=== PATIENT | male | born 1960 | race Caucasian/White ===

== ENCOUNTER 2021-12-15 10:00 | Inpatient (IN) ==
[2021-12-15] MEDS ORDERED: DEXAMETHASONE 4 MG TABLET PO ONE (10:25)
[2021-12-15] MEDS ORDERED: 0.9 % SODIUM CHLORIDE 1,000 ML IV ONE (10:25)
[2021-12-15] MEDS ORDERED: ACETAMINOPHEN 500 MG TABLET PO ONE (10:25)
--- NOTE | 2021-12-15 10:33 | Emergency Department Note ---
HPI General Chief complaint: Shortness of Breath/Dyspnea Stated complaint: Weak Time Seen by Provider: 12/15/21 10:24 Source: EMS Mode of arrival: EMS Limitations: no limitations History of Present Illness HPI Narrative: Patient is a 61-year-old gentleman arrives the emergency department complaining of shortness of breath. The patient says he started feeling ill about 3 weeks ago after being exposed to his son who tested positive for COVID-19. His also became ill with similar symptoms including a cough headache and shortness of breath. His symptoms gradually resolved but has not progressively wor sened ever since. He continues to have fever and chills. He has been having persistent diarrhea and mild associated abdominal discomfort. Nothing seems to make his symptoms any better or worse. This morning he started feeling more short of breath so he decided to seek medical attention. He has not taken any medications this morning for his symptoms but has been intermittently taking Tylenol to treat his fevers. He received a full vaccination series against COVID-19 several months ago. Related Data Home Medications Medication Instructions Recorded Confirmed carboxymethylcellulose sodium 0.5 1 drp OPHTHALMIC TID PRN 05/19/19 12/15/21 % eye drops cholecalciferol (vitamin D3) 125 5,000 unit PO QDAY 05/19/19 12/15/21 mcg (5,000 unit) capsule furosemide 40 mg tablet 80 mg PO QAM tab 11/10/19 12/15/21 magnesium oxide 420 mg tablet 420 mg PO QDAY tab 11/10/19 12/15/21 acetaminophen 650 mg 650 mg PO Q12H PRN 12/17/19 12/15/21 tablet,extended release insulin aspart U-100 100 unit/mL 30 unit SUB-Q TID ml 12/17/19 12/15/21 subcutaneous solution insulin glargine 100 unit/mL 50 unit SUB-Q BID ml 12/17/19 12/15/21 subcutaneous solution cyanocobalamin (vitamin B-12) 1,000 mcg PO QDAY 05/16/21 12/15/21 1,000 mcg capsule metoprolol tartrate 50 mg tablet 50 mg PO BID tab 05/16/21 12/15/21 gabapentin 300 mg capsule 600 mg PO TID cap 11/15/21 12/15/21 metformin 500 mg tablet 1,000 mg PO BID tab 11/15/21 12/15/21 semaglutide (weight loss) 1.7 1.7 mg SUBCUT QWEEK 11/15/21 12/15/21 mg/0.75 mL subcutaneous pen injector diclofenac sodium 50 mg 50 mg PO TID PRN 12/15/21 12/15/21 tablet,delayed release lisinopril 20 1 tab PO QAM 12/15/21 12/15/21 mg-hydrochlorothiazide 12.5 mg tablet metformin 500 mg tablet 500 mg PO QDAY 12/15/21 12/15/21 simvastatin 40 mg tablet 40 mg PO QHS 12/15/21 12/15/21 Allergies Allergy/AdvReac Type Severity Reaction Status Date / Time iodine Allergy Unknown Rash Verified 12/15/21 10:03 prednisone Allergy Unknown Schizophren Verified 11/15/21 09:51 ia contrast dye Allergy Intermediate Rash Uncoded 11/15/21 09:51 Review of Systems ROS ROS Narrative: Narrative: All systems ED: reviewed and negative except as stated. ENT ED: Reports epistaxis, congestion and rhinorrhea Neurological: Reports headache PFSH Narrative Patient History Narrative: Narrative: Medical/Surgical/Family History All Active Problems (Updated 12/16/21 @ 07:30 by Tj Rosenthal DO) Congestive heart failure (Acute) Acute hypoxemic respiratory failure (Acute) Acute hypokalemia (Acute) Hypokalemia (Acute) CHF exacerbation (Acute) Acute respiratory failure with hypoxia (Acute) Localized edema due to fluid overload (Chronic) Anemia due to stage 3a chronic kidney disease (Chronic) Chronic kidney disease (CKD) stage G3a/A1, moderately decreased glomerular filtration rate (GFR) between 45-59 mL/min/1.73 square meter and albuminuria creatinine ratio less than 30 mg/g (Chronic) Blister (Acute) History of diabetic ulcer of foot (Acute) Hypertension in stage 3 chronic kidney disease due to type 2 diabetes mellitus (Chronic) Hypovitaminosis D (Chronic) Low vitamin B12 level (Chronic) Chronic diarrhea (Chronic) Ex-cigarette smoker (Chronic) Ex-cigar smoker (Chronic) Ex-pipe smoker (Chronic) Ex-user of chewing tobacco (Chronic) Hypertensive emergency (Chronic) CHF (congestive heart failure) (Chronic) Diaphoresis (Chronic) Snoring (Chronic) Lumbar radiculopathy (Chronic) Morbid obesity (Chronic) Lumbar sprain (Chronic) Chronic venous insufficiency (Chronic) Diabetic neuropathy (Chronic) Onychomycosis (Chronic) Anemia (Chronic) Pruritic rash (Chronic) Tinea pedis (Chronic) Nicotine dependence with current use (Chronic) Generalized edema (Chronic) Venous ulcer of leg (Chronic) Diabetes mellitus treated with insulin and oral medication (Chronic) DMII (diabetes mellitus, type 2) (Chronic) Hip pain (Chronic) Low back pain (Chronic) Age related cataract (Chronic) Dry eyes (Chronic) Diabetic retinopathy (Chronic) Tinea corporis (Chronic) 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) Non-proliferative diabetic retinopathy (Chronic) Vitamin D deficiency (Chronic) Hypomagnesemia (Chronic) Hyperlipidemia (Chronic) Hypertension (Chronic) Diabetic foot ulcer (Chronic) Knee pain (Chronic) Lumbosacral radiculopathy (Chronic) Degeneration of lumbar intervertebral disc (Chronic) Osteoarthritis of hip (Chronic) Acute sinusitis (Chronic) COPD (chronic obstructive pulmonary disease) (Chronic) Dyspnea on exertion (Chronic) Respiratory infection (Chronic) Medical History Acute sinusitis Age related cataract Anemia Blister CHF (congestive heart failure) Chronic diarrhea Chronic venous insufficiency COPD (chronic obstructive pulmonary disease) Degeneration of lumbar intervertebral disc Diabetes mellitus treated with insulin and oral medication Diabetic foot ulcer Diabetic neuropathy Diabetic retinopathy Diaphoresis DMII (diabetes mellitus, type 2) Dry eyes Dyspnea on exertion Ex-cigar smoker Ex-cigarette smoker Ex-pipe smoker Ex-user of chewing tobacco Generalized edema Hip pain History of diabetic ulcer of foot History of diabetic ulcer of foot Hyperlipidemia Hypertension Hypertensive emergency Hypomagnesemia Hypovitaminosis D Knee pain Low back pain Low vitamin B12 level Lumbar radiculopathy Lumbar sprain Lumbosacral radiculopathy Morbid obesity Nicotine dependence with current use Non-proliferative diabetic retinopathy Onychomycosis Open angle with borderline intraocular pressure Osteoarthritis of hip Pruritic rash Respiratory infection Snoring Tinea corporis Tinea pedis Venous ulcer of leg Vitamin D deficiency Surgical History No pertinent past surgical history Family History Mother CHF (congestive heart failure) Father , Age 70 History of cancer Sister Healthy female Sister Healthy female Other No pertinent family history Social History Smoking Status: Former smoker Alcohol Intake Frequency: does not drink Substance Use: does not use Exam Narrative Narrative: I reviewed the vital signs. Gen -patient is awake and alert and in no acute distress. The patient is well groomed. HEENT -head is atraumatic. There is no conjunctival pallor or scleral icterus. Mucous membranes are dry. CV -S1-S2 regular rate and rhythm. Peripheral pulses are palpable. There is no JVD. Resp -breathing is somewhat labored while on supplemental oxygen via nasal cannula. The patient can speak in short sentences but has visibly increased work of breathing after prolonged conversation. Lungs have moderate rhonchi bilaterally. There is no cyanosis. GI - Abdomen is soft and nontender to palpation. There is no guarding or rebound tenderness. Derm -skin is warm and dry. There is no visible rash. MSK -present extremities are atraumatic. Psych -patient has appropriate affect. The patient does not appear internally stimulated. Neuro -patient answers questions appropriately with fluent speech. Patient moves all present extremities equally. General Limitations: no limitations Course Vital Signs Vital signs: Vital Signs Temperature 98.7 F 12/15/21 10:01 Pulse Rate 93 H 12/15/21 10:01 Respiratory Rate 22 12/15/21 10:01 Blood Pressure 155/57 12/15/21 10:01 Pulse Oximetry (%) 88 L 12/15/21 10:01 Temperature 97.0 F 12/16/21 04:02 Pulse Rate 74 12/16/21 06:27 Respiratory Rate 30 H 12/16/21 06:27 Blood Pressure 108/53 12/16/21 06:01 Pulse Oximetry (%) 93 12/16/21 06:27 [facility] Narrative Medical decision making narrative: Patient with history of COVID exposure presents with shortness of breath. Initial suspicion was for COVID-19 pneumonia so he was given dexamethasone and IV fluids. However, after the patient volunteered further historical information, it became apparent that he had been out of his diuretics for several days and had recently reinstated diuretic use. During that time he had developed significant weight gain and peripheral edema to the point that his had difficulty getting his shoes on this morning. Chest x-ray reveals diffuse bilateral infiltrates suggestive of COVID-19 with likely overlying pulmonary edema. Labs remarkable for significantly elevated BNP as well as hypokalemia. The patient was given potassium and magnesium to replete his electrolytes. He was then given furosemide and nitroglycerin to treat suspected decompensated heart failure. He remained clinically stable throughout his emergency department stay but was unable to be weaned off of high flow nasal cannula. Given this I recommended he be admitted and he was agreeable. I discussed the patient's history examination and diagnostic findings with Dr. Mcclure, who agrees with the plan of care and accepts admission. Critical care time I provided 34 minutes of critical care time. This was in addition to any separately billable procedures. The patient was given supplemental oxygen to treat his hypoxemic respiratory failure. He was given IV diuretics and topical nitrates to treat decompensated heart failure. He was given magnesium and potassium to replete his electrolyte deficiencies and potentiate the action of the diuretics. The patient was closely monitored for response to treatment and stability of vital signs throughout their emergency department stay. Lab Data Lab results reviewed: Yes I reviewed the patient's lab results. Result diagrams: 12/16/21 05:36 12/16/21 05:35 Labs: Lab Results 12/15/21 12/15/21 12/15/21 Range/Units 10:39 10:39 10:39 WBC 7.3 (4.5-11.0) K/mcL RBC 3.46 L (4.63-6.08) M/mcL Hgb 10.7 L (13.7-17.5) g/dL Hct 32.3 L (40.1-51.0) % POC Hct 35 L (41-55) % MCV 93.4 (80.0-100.0) fL MCH 30.9 (26.0-34.0) pg MCHC 33.1 (31.0-36.0) g/dL RDW 15.0 H (11.5-14.5) % Plt Count 203 (140-440) K/mcL MPV 9.4 (7.4-10.4) fL Neut % (Auto) 77.0 (38.0-78.0) % Lymph % (Auto) 16.7 (15.5-49.0) % [place] % (Auto) 6.3 (1.0-12.0) % Eos % (Auto) 0 (0.0-7.0) % Baso % (Auto) 0 (0.0-2.0) % Lymph # (Auto) 1.22 L (1.50-4.80) K/mcL [place] # (Auto) 0.46 (0.10-0.90) K/mcL Eos # (Auto) 0 (0.00-0.70) K/mcL Baso # (Auto) 0 (0.00-0.30) K/mcL Absolute Neutrophils 5.63 (1.80-8.00) K/mcL POC Sodium 136 (133-145) mEq/L POC Potassium 2.9 L* (3.3-5.1) mEql/L POC Chloride 92 L (96-108) mEq/L POC Total CO2 28 (22-30) mmol/L POC BUN 23 H (6-20) mg/dL POC Creatinine 1.4 H (0.6-1.2) mg/dL POC Glucose 224 H (70-105) mg/dL POC WB Ioniz Calcium 0.97 L (1.16-1.32) mmEq/L Magnesium 1.8 (1.6-2.5) mg/dL Troponin T (<0.03) ng/mL NT-Pro-B Natriuret Pep 1420.0 H (<125.0) pg/mL 12/15/21 12/15/21 Range/Units 10:39 14:13 WBC (4.5-11.0) K/mcL RBC (4.63-6.08) M/mcL Hgb (13.7-17.5) g/dL Hct (40.1-51.0) % POC Hct (41-55) % MCV (80.0-100.0) fL MCH (26.0-34.0) pg MCHC (31.0-36.0) g/dL RDW (11.5-14.5) % Plt Count (140-440) K/mcL MPV (7.4-10.4) fL Neut % (Auto) (38.0-78.0) % Lymph % (Auto) (15.5-49.0) % [place] % (Auto) (1.0-12.0) % Eos % (Auto) (0.0-7.0) % Baso % (Auto) (0.0-2.0) % Lymph # (Auto) (1.50-4.80) K/mcL [place] # (Auto) (0.10-0.90) K/mcL Eos # (Auto) (0.00-0.70) K/mcL Baso # (Auto) (0.00-0.30) K/mcL Absolute Neutrophils (1.80-8.00) K/mcL POC Sodium (133-145) mEq/L POC Potassium (3.3-5.1) mEql/L POC Chloride (96-108) mEq/L POC Total CO2 (22-30) mmol/L POC BUN (6-20) mg/dL POC Creatinine (0.6-1.2) mg/dL POC Glucose (70-105) mg/dL POC WB Ioniz Calcium (1.16-1.32) mmEq/L Magnesium (1.6-2.5) mg/dL Troponin T 0.20 H* 0.19 H* (<0.03) ng/mL NT-Pro-B Natriuret Pep (<125.0) pg/mL ED POC Tests ED POC Tests: YUE - SARS Antigen Negative EKG Data EKG #1: EKG attestation: Yes I reviewed and interpreted this EKG. EKG results narrative: EKG performed at 10:58 AM: Sinus rhythm, rate 91. Normal P wave QRS and T wave morphology. There is subtle ST depression in V6 and V3. Normal AR and QRS duration. No old EKG immediately available for comparison. EKG was interpreted by me. Discharge Plan Patient/Caregiver Discharge Instructions Pt seen by SERVICE CASHIER/PA only: No Clinical Impression: Congestive heart failure, Acute hypoxemic respiratory failure, Acute hypokalemia Patient Disposition: Xfer As Inpt ([facility]) Condition: Critical Discharge Date/Time: 12/15/21 16:35
[2021-12-15] MEDS ORDERED: OXYMETAZOLINE 1 NASAL SPRAY BOTTLE NAS PRN (10:45)
[2021-12-15 10:56] LABS: POC Blood Urea Nitrogen 23 mg/dL (6-20); POC CO2 28 mmol/L (22-30); POC Calcium, Ionized 0.97 mmEq/L (1.16-1.32); POC Chloride 92 mEq/L (96-108); POC Creatinine 1.4 mg/dL (0.6-1.2); POC Glucose, Random 224 mg/dL (70-105); POC Hematocrit 35 % (41-55); POC Potassium 2.9 mEql/L (3.3-5.1); POC Sodium 136 mEq/L (133-145)
--- NOTE | 2021-12-15 11:03 | XRay Report ---
HISTORY: Hypoxia, dyspnea, weakness FINDINGS: Severe alveolar infiltrates are present throughout both lungs. Lung volumes are relatively small. The heart appears enlarged but is magnified by portable technique and poor inspiration. No pleural effusion is detected. The infiltrates are new and the heart has enlarged since prior x-ray done on 01/08/15. IMPRESSION: Severe infiltrates throughout both lungs which could be due to pulmonary edema or severe widespread bilateral pneumonia Interpreted and Authenticated by: Blayne Bates 12/15/21
[2021-12-15] MEDS ORDERED: MAGNESIUM OXIDE 400 MG TABLET PO ONE (11:06)
[2021-12-15] MEDS ORDERED: POTASSIUM CHLORIDE 20 MEQ PACKET PO ONE (11:06)
[2021-12-15 11:21] LABS: Basophils # (Auto) 0 K/mcL (0.00-0.30); Basophils % (Auto) 0 % (0.0-2.0); Eosinophils # (Auto) 0 K/mcL (0.00-0.70); Eosinophils % (Auto) 0 % (0.0-7.0); Hematocrit 32.3 % (40.1-51.0); Hemoglobin 10.7 g/dL (13.7-17.5); Lymphocytes # (Auto) 1.22 K/mcL (1.50-4.80); Lymphocytes % (Auto) 16.7 % (15.5-49.0); Mean Cell Volume 93.4 fL (80.0-100.0); Mean Corpuscular HGB Conc 33.1 g/dL (31.0-36.0); Mean Platelet Volume 9.4 fL (7.4-10.4); Monocytes # (Auto) 0.46 K/mcL (0.10-0.90); Monocytes % (Auto) 6.3 % (1.0-12.0); Platelet Count 203 K/mcL (140-440); RBC 3.46 M/mcL (4.63-6.08); WBC 7.3 K/mcL (4.5-11.0)
[2021-12-15] MEDS ORDERED: NITROGLYCERIN 5 MG (0.2 MG/HR) PATCH TOPICAL ONE (14:12)
[2021-12-15] MEDS ORDERED: FUROSEMIDE 40 MG/4 ML VIAL IV ONE (14:12)
[2021-12-15] MEDS ORDERED: POTASSIUM CHLORIDE 40 MEQ in DEXTROSE 5% IN WATER 500 ML IV ONE (14:12)
--- NOTE | 2021-12-15 15:57 | Internal Med History&Physical ---
HPI History of Present Illness Patient information: Note initiated : 12/15/21 at 3:49 pm Service Date, if different from initiated Date: [] Patient: Jose Young 61 y/o M admitted on for Weak. Chief Complaint: [shortness of breath, cough, fever, chills] Chief complaint: shortness of breath, cough, fever, chills History of present illness: Mr. Young is a 61 year old M history of congestive heart failure, chronic kidn ey disease stage III, morbid obesity, essential hypertension, mixed dyslipidemia, type 2 diabetes mellitus, presenting with 3 weeks history of shortness of breath, cough, fever, chills, and bilateral leg swellings. He ran out of his diuretics Lasix 3 weeks ago. Since then, he had gradually worsening shortness of breath, cough, fever, chills, and bilateral leg swellings. He is also complained of dyspnea on exertions with 20 feet. He is also committing of orthopnea to the point that he has to sleep on the chair. He denies any wheezing. He denies any unintentional weight gain. Patient is vaccinated against COVID-pneumonia. Of note, his son was recently being diagnosed with COVID-pneumonia. Labs significant for lack of leukocytosis with WBC 7.3. POC potassium level 2.9. Serum creatinine level 1.4 which is at around his baseline. Serum glucose level 224. Serum troponin level 0.20 followed by 0.19. Serum BNP 1420. [place]ice negative. [place] pending. Chest x-ray showing severe infiltrates throughout both lungs which could be due to pulmonary edema or severe widespread bilateral pneumonia such as COVID-pneumonia. Constitutional Constitutional: Absent chills, excessive sweating, fatigue, fever(s) or weakness EENT Eyes: Absent blurry vision, change in vision, loss of vision or other visual disturbances Ears: Absent decreased hearing or tinnitus Nose, mouth and throat: Absent abnormal hearing, dry mouth, headache(s), nasal congestion or sore throat Cardiovascular Cardiovascular: Present dyspnea, dyspnea on exertion and pedal edema; Absent chest pain, chest pain at rest, edema, irregular heart rhythm or palpatations Respiratory Respiratory: Present cough, dyspnea and dyspnea on exertion; Absent wheezing Gastrointestinal Gastrointestinal: Absent abdominal pain, constipation, diarrhea, nausea or vomiting Musculoskeletal Musculoskeletal: Absent back pain, deformity, limited range of motion, muscle cramps, muscle weakness or numbness Integumentary Integumentary: Absent lesions, rash or wounds Neurological Neurological: Absent focal weakness, headache(s) or numbness Psychiatric Psychiatric: Absent anxiety, depression or hallucinations PFSH PFSH All Active Problems (Updated 12/15/21 @ 15:56 by Giancarlo Mcclure MD) Hypokalemia (Acute) CHF exacerbation (Acute) Acute respiratory failure with hypoxia (Acute) Localized edema due to fluid overload (Chronic) Anemia due to stage 3a chronic kidney disease (Chronic) Chronic kidney disease (CKD) stage G3a/A1, moderately decreased glomerular filtration rate (GFR) between 45-59 mL/min/1.73 square meter and albuminuria creatinine ratio less than 30 mg/g (Chronic) Blister (Acute) History of diabetic ulcer of foot (Acute) Hypertension in stage 3 chronic kidney disease due to type 2 diabetes mellitus (Chronic) Hypovitaminosis D (Chronic) Low vitamin B12 level (Chronic) Chronic diarrhea (Chronic) Ex-cigarette smoker (Chronic) Ex-cigar smoker (Chronic) Ex-pipe smoker (Chronic) Ex-user of chewing tobacco (Chronic) Hypertensive emergency (Chronic) CHF (congestive heart failure) (Chronic) Diaphoresis (Chronic) Snoring (Chronic) Lumbar radiculopathy (Chronic) Morbid obesity (Chronic) Lumbar sprain (Chronic) Chronic venous insufficiency (Chronic) Diabetic neuropathy (Chronic) Onychomycosis (Chronic) Anemia (Chronic) Pruritic rash (Chronic) Tinea pedis (Chronic) Nicotine dependence with current use (Chronic) Generalized edema (Chronic) Venous ulcer of leg (Chronic) Diabetes mellitus treated with insulin and oral medication (Chronic) DMII (diabetes mellitus, type 2) (Chronic) Hip pain (Chronic) Low back pain (Chronic) Age related cataract (Chronic) Dry eyes (Chronic) Diabetic retinopathy (Chronic) Tinea corporis (Chronic) 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) Non-proliferative diabetic retinopathy (Chronic) Vitamin D deficiency (Chronic) Hypomagnesemia (Chronic) Hyperlipidemia (Chronic) Hypertension (Chronic) Diabetic foot ulcer (Chronic) Knee pain (Chronic) Lumbosacral radiculopathy (Chronic) Degeneration of lumbar intervertebral disc (Chronic) Osteoarthritis of hip (Chronic) Acute sinusitis (Chronic) COPD (chronic obstructive pulmonary disease) (Chronic) Dyspnea on exertion (Chronic) Respiratory infection (Chronic) Medical History Acute sinusitis Age related cataract Anemia Blister CHF (congestive heart failure) Chronic diarrhea Chronic venous insufficiency COPD (chronic obstructive pulmonary disease) Degeneration of lumbar intervertebral disc Diabetes mellitus treated with insulin and oral medication Diabetic foot ulcer Diabetic neuropathy Diabetic retinopathy Diaphoresis DMII (diabetes mellitus, type 2) Dry eyes Dyspnea on exertion Ex-cigar smoker Ex-cigarette smoker Ex-pipe smoker Ex-user of chewing tobacco Generalized edema Hip pain History of diabetic ulcer of foot History of diabetic ulcer of foot Hyperlipidemia Hypertension Hypertensive emergency Hypomagnesemia Hypovitaminosis D Knee pain Low back pain Low vitamin B12 level Lumbar radiculopathy Lumbar sprain Lumbosacral radiculopathy Morbid obesity Nicotine dependence with current use Non-proliferative diabetic retinopathy Onychomycosis Open angle with borderline intraocular pressure Osteoarthritis of hip Pruritic rash Respiratory infection Snoring Tinea corporis Tinea pedis Venous ulcer of leg Vitamin D deficiency Surgical History No pertinent past surgical history Family History Mother CHF (congestive heart failure) Father , Age 70 History of cancer Sister Healthy female Sister Healthy female Other No pertinent family history Social History marital status: service: Yes occupational status: disabled occupation: Retired [employer] smoking status stop date: 11/25/14 alcohol intake frequency: does not drink substance use type: does not use MEDS/ALLERGIES Home Medications and Allergies Home Medications Medication Instructions Recorded Confirmed Type carboxymethylcellulose sodium 0.5 1 drp OPHTHALMIC TID 05/19/19 11/15/21 History % eye drops cholecalciferol (vitamin D3) 125 5,000 unit PO QDAY 05/19/19 11/15/21 History mcg (5,000 unit) capsule lisinopril 40 mg tablet 40 mg PO QDAY 06/02/19 11/15/21 History furosemide 40 mg tablet 80 mg PO QAM tab 11/10/19 11/15/21 History magnesium oxide 420 mg tablet 210 mg PO QDAY tab 11/10/19 11/15/21 History acetaminophen 650 mg 650 mg PO Q12H PRN 12/17/19 11/15/21 History tablet,extended release insulin aspart U-100 100 unit/mL 40 unit SUB-Q TID ml 12/17/19 11/15/21 History subcutaneous solution insulin glargine 100 unit/mL 58 unit SUB-Q BID ml 12/17/19 11/15/21 History subcutaneous solution methocarbamol 750 mg tablet 750 mg PO BID PRN tab 12/17/19 11/15/21 History cyanocobalamin (vitamin B-12) 1,000 mcg PO QDAY 05/16/21 11/15/21 History 1,000 mcg capsule metoprolol tartrate 50 mg tablet 50 mg PO BID tab 05/16/21 11/15/21 History rosuvastatin 20 mg tablet 20 mg PO QDAY 05/16/21 11/15/21 History gabapentin 300 mg capsule 300 mg PO TID PRN cap 11/15/21 11/15/21 History metformin 500 mg tablet 1,000 mg PO BID tab 11/15/21 11/15/21 History semaglutide (weight loss) 1.7 1.7 mg SUBCUT QWEEK 11/15/21 11/15/21 History mg/0.75 mL subcutaneous pen injector Allergies Allergy/AdvReac Type Severity Reaction Status Date / Time iodine Allergy Unknown Rash Verified 12/15/21 10:03 prednisone Allergy Unknown Schizophren Verified 11/15/21 09:51 ia contrast dye Allergy Intermediate Rash Uncoded 11/15/21 09:51 EXAM Constitutional Vitals: Temp Pulse Resp BP Pulse Ox 37.1 C 90 22 150/90 96 12/15/21 10:01 12/15/21 14:46 12/15/21 15:30 12/15/21 15:00 12/15/21 15:30 General appearance: cooperative, mild distress and morbidly obese Head Head exam: Present atraumatic and normocephalic Eye Eye exam: Present EOMI and PERRL ENT ENT exam: Present mucous membranes moist, normal exam and normal external ear exam Additional comments: High flow oxygen in place Neck Neck exam: Present normal inspection; Absent lymphadenopathy, tenderness or thyromegaly Respiratory Respiratory exam: Present rhonchi; Absent accessory muscle use, respiratory dist ress or wheezes Cardiovascular Cardiovascular exam: Present normal rate and rhythm; Absent JVD GI/Abdominal GI/Abdominal exam: Present normal bowel sounds and soft; Absent organomegaly or tenderness Rectal Rectal exam: Present deferred Extremities Exam Extremities exam: Present full ROM, normal capillary refill, normal inspection and pedal edema; Absent tenderness Neurological Exam Neurological exam: Present alert, CN II-XII intact and oriented X3; Absent motor sensory deficit Psychiatric Psychiatric exam: Present normal affect and normal mood; Absent anxious or depressed Skin Skin exam: Present dry and intact DATA Data Completed and Pending Labs: Labs from last 24 hours 12/15/21 12/15/21 12/15/21 14:13 10:39 10:39 WBC RBC Hgb Hct POC Hct MCV MCH MCHC RDW Plt Count MPV Neut % (Auto) Lymph % (Auto) [place] % (Auto) Eos % (Auto) Baso % (Auto) Lymph # (Auto) [place] # (Auto) Eos # (Auto) Baso # (Auto) Absolute Neutrophils POC Sodium POC Potassium POC Chloride POC Total CO2 POC BUN POC Creatinine POC Glucose POC WB Ioniz Calcium Magnesium 1.8 Troponin T 0.19 H* 0.20 H* NT-Pro-B Natriuret Pep 1420.0 H 12/15/21 12/15/21 10:39 10:39 WBC 7.3 RBC 3.46 L Hgb 10.7 L Hct 32.3 L POC Hct 35 L MCV 93.4 MCH 30.9 MCHC 33.1 RDW 15.0 H Plt Count 203 MPV 9.4 Neut % (Auto) 77.0 Lymph % (Auto) 16.7 [place] % (Auto) 6.3 Eos % (Auto) 0 Baso % (Auto) 0 Lymph # (Auto) 1.22 L [place] # (Auto) 0.46 Eos # (Auto) 0 Baso # (Auto) 0 Absolute Neutrophils 5.63 POC Sodium 136 POC Potassium 2.9 L* POC Chloride 92 L POC Total CO2 28 POC BUN 23 H POC Creatinine 1.4 H POC Glucose 224 H POC WB Ioniz Calcium 0.97 L Magnesium Troponin T NT-Pro-B Natriuret Pep A/P Assessment and plan (1) Acute respiratory failure with hypoxia: Status: Acute (2) Anemia due to stage 3a chronic kidney disease: Status: Chronic (3) Chronic kidney disease (CKD) stage G3a/A1, moderately decreased glomerular filtration rate (GFR) between 45-59 mL/min/1.73 square meter and albuminuria creatinine ratio less than 30 mg/g: Status: Chronic (4) Hypertension in stage 3 chronic kidney disease due to type 2 diabetes mellitus: Status: Chronic (5) Diabetes mellitus treated with insulin and oral medication: Status: Chronic (6) Hyperlipidemia: Status: Chronic (7) CHF exacerbation: Status: Acute (8) Morbid obesity: Status: Chronic (9) Hypokalemia: Status: Acute Narrative A/P Narrative: Assessment and Plans: 1. Acute respiratory failure with hypoxia: DDx: CHF with exacerbation, CoVID pneumonia Admit to inpatient PCU with telemetry [place] negative, [place] pending. Airborne and contact isolations until [place] negative Supplemental oxygen therapy, titrate to achieve spo2>=92%, currently at high flow oxygen 35L/min FiO2 70% Serial lactic acid Inflammatory markers ABG cbc w/ auto diff in the morning to trend WBC 2D echocardiogram Strict intake and output Daily weigh 2L/day fluid restriction Lasix 40mg IV BID Metoprolol tartrate Lisinopril No CoVID specific treatment until [place] test becomes positive 2. T2DM with diabetic neuropathy: HgA1c Hold oral hypoglycemics Lantus 58 unit BID Aspart 40 unit TID Correctional scale insulin AC HS Accu Chek AC HS Hypoglycemia protocol Diabetic diet Gabapentin PRN neuropathic pain 3. Essential HTN: Metoprolol tartrate Lisinopril 4. Mixed dyslipidemia: Continue statin therapy 5. 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 Anemia in chronic kidney disease stage 3: Avoid nephrotoxic agents Saline lock CMP daily to trend kidney functions cbc w/ auto diff in the morning to trend H/H 7. Hypokalemia: PO/IV potassium replacement CMP in the morning to trend serum potassium level, repeat replacement as needed Also check serum Mg level and replace as needed GI ppx: not currently indicated DVT ppx: Heparin Code status: Full Prognosis: guarded Disposition: inpatient PCU telemetry Time Spent With Patient Time: Total time spent is greater than 50% in coordination of care (as documented) at patient's floor/unit and/or counseling patient: Total time spent with greater than 50% in coordination of care (as documented) at patient's floor/unit and/or counseling patient:: Greater than 35 minutes
[2021-12-15] MEDS ORDERED: POTASSIUM CHLORIDE 20 MEQ in DEXTROSE 5% IN WATER 250 ML IV PRN (16:57)
[2021-12-15] MEDS ORDERED: DEXTROSE 31 GM ORAL.SUSP PO PRN (16:57)
[2021-12-15] MEDS ORDERED: IPRATROPIUM/ALBUTEROL 3 ML AMPUL.NEB NEB PRN (16:57)
[2021-12-15] MEDS ORDERED: SENNOSIDES 1 TABLET PO PRN (16:57)
[2021-12-15] MEDS ORDERED: POTASSIUM CHLORIDE 20 MEQ TABLET PO PRN (16:57)
[2021-12-15] MEDS ORDERED: DEXTROSE 50% 50 ML VIAL IV PRN (16:57)
[2021-12-15] MEDS ORDERED: ONDANSETRON 4 MG/2 ML VIAL IV PRN (16:57)
[2021-12-15] MEDS ORDERED: LACTULOSE 20 GM/30 ML ORAL.SOL PO PRN (16:57)
[2021-12-15] MEDS: INSULIN LISPRO 1 UNIT/0.01 ML UNIT SQ SCH ×2 (17:31→21:33)
[2021-12-15] MEDS: FUROSEMIDE 40 MG/4 ML VIAL IV SCH (18:00)
[2021-12-15 18:37] LABS: Lactate Dehydrogenase 502 U/L (135-225)
[2021-12-15 18:48] LABS: Estimated Average Glucose(eAG) 180 mg/dL; Hemoglobin A1C 7.9 % Hgb (4.0-6.0)
[2021-12-15 19:00] LABS: Ferritin 872.4 ng/mL (30.0-400.0)
[2021-12-15] MEDS ORDERED: [UNRECOGNIZED DRUG - OTHER] PO PRN (19:14)
[2021-12-15] MEDS ORDERED: DICLOFENAC SODIUM 50 MG PO PRN (19:14)
[2021-12-15 20:35] LABS: INR 1.1 (0.9-1.1); Prothrombin Time 14.3 sec (11.9-14.5)
[2021-12-15] MEDS: DOCUSATE SODIUM 100 MG CAPSULE PO SCH (21:26)
[2021-12-15] MEDS: INSULIN GLARGINE, HUMAN 1 UNIT/0.01 ML SQ SCH (21:32)
[2021-12-15] MEDS: HEPARIN 5,000 UNIT/ML VIAL SQ SCH (21:32)
[2021-12-15] MEDS: METOPROLOL TARTRATE 50 MG TABLET PO SCH (21:32)
[2021-12-15] MEDS: SIMVASTATIN 40 MG TABLET PO SCH (21:32)
[2021-12-15] MEDS: CARBOXYMETHYLCELLULOSE SODIUM 1 EACH DROPER.GEL OU SCH (21:34)
[2021-12-15] MEDS: 0.9 % SODIUM CHLORIDE 10 ML SYRINGE IV SCH (21:34)
[2021-12-16] MEDS ORDERED: REMDESIVIR 200 MG in 0.9 % SODIUM CHLORIDE 250 ML IV ONE (00:09)
[2021-12-16] MEDS: 0.9 % SODIUM CHLORIDE 10 ML SYRINGE IV SCH ×4 (01:13→20:23)
[2021-12-16 07:25] LABS: Basophils # (Auto) 0.01 K/mcL (0.00-0.30); Basophils % (Auto) 0.1 % (0.0-2.0); Eosinophils # (Auto) 0 K/mcL (0.00-0.70); Eosinophils % (Auto) 0 % (0.0-7.0); Hematocrit 33.1 % (40.1-51.0); Hemoglobin 10.7 g/dL (13.7-17.5); Lymphocytes # (Auto) 0.91 K/mcL (1.50-4.80); Mean Cell Volume 94.6 fL (80.0-100.0); Mean Corpuscular HGB Conc 32.3 g/dL (31.0-36.0); Mean Platelet Volume 9.7 fL (7.4-10.4); Monocytes # (Auto) 0.48 K/mcL (0.10-0.90); Monocytes % (Auto) 6.9 % (1.0-12.0); Platelet Count 236 K/mcL (140-440); Red Cell Distribution Width 14.8 % (11.5-14.5)
[2021-12-16 07:28] LABS: ALT/SGPT 19 U/L (<40); AST/SGOT 35 U/L (<40); Albumin 2.9 gm/dL (3.2-5.2); Albumin/Globulin Ratio 0.8 (1.0-2.3); Alkaline Phosphatase 43 U/L (39-117); Bilirubin,Total 0.3 mg/dL (0.1-1.0); Blood Urea Nitrogen 25 mg/dL (8-23); Calcium 7.9 mg/dL (8.6-10.4); Carbon Dioxide 29 mmol/L (22-30); Chloride 97 mmol/L (96-108); Globulin 3.8 gm/dL (2.2-3.7); Glomerular Filtration Rate 72; Glucose 307 mg/dL (70-105)
[2021-12-16 07:29] LABS: Phosphorous 1.8 mg/dL (2.5-4.5)
--- NOTE | 2021-12-16 08:50 | Internal Med Progress Note ---
SUBJECTIVE Subjective Patient information: Note initiated : 12/16/21 at 8:48 am Service Date, if different from initiated Date: [] Patient: Jose Young a 61 y/o M admitted on 12/15/21 for Weak. Chief Complaint: [shortness of breath] Principal diagnosis: CoVID pneumonia, CHF exacerbation Interval history: Mr. Young is a 61 year old M history of congestive heart failure, chronic kidney disease stage III, morbid obesity, essential hypertension, mixed dyslipidemia, type 2 diabetes mellitus, presenting with 3 weeks history of shortness of breath, cough, fever, chills, and bilateral leg swellings. He ran out of his diuretics Lasix 3 weeks ago. Since then, he had gradually worsening shortness of breath, cough, fever, chills, and bilateral leg swellings. He is also complained of dyspnea on exertions with 20 feet. He is also committing of orthopnea to the point that he has to sleep on the chair. He denies any wh eezing. He denies any unintentional weight gain. Patient is vaccinated against COVID-pneumonia. Of note, his son was recently being diagnosed with COVID- pneumonia. Labs significant for lack of leukocytosis with WBC 7.3. POC potassium level 2.9. Serum creatinine level 1.4 which is at around his baseline. Serum glucose level 224. Serum troponin level 0.20 followed by 0.19. Serum BNP 1420. Eunice negative. [place] pending. Chest x-ray showing severe infiltrates throughout both lungs which could be due to pulmonary edema or severe widespread bilateral pneumonia such as COVID-pneumonia. 12/16: Afebrile overnight. [place] positive. Blood cultures no growth to date. Sputum culture mixed becky. On BiPAP 15/7 FiO2 75%. c/o shortness of breath, improving. c/o productive cough with brown and green sputum. c/o wheezing. c/o chest pain when cough. c/o sweating. Denies any fever or chills. c/o mild anxiety. On Lasix IV, Dexamethasone, and Remdesivir. Add Bariticinib. Pertinent ROS: c/o shortness of breath, improving. c/o productive cough with brown and green sputum. c/o wheezing. c/o chest pain when cough. c/o sweating. Denies any fever or chills. c/o mild anxiety. Constitutional Vitals: Vital Signs Temp Pulse Resp BP Pulse Ox 36.1 C 74 30 H 108/53 93 12/16/21 04:02 12/16/21 06:27 12/16/21 06:27 12/16/21 06:01 12/16/21 06:27 Period Temp Pulse Resp BP Sys/Bcek Pulse Ox Last 24 Hr 36.0 C-37.1 C 60-99 11-30 108-167/46-99 82-97 Intake and Output 12/15/21 12/16/21 12/16/21 21:59 05:59 13:59 Intake Total 520 250 Output Total 600 550 Balance -80 -300 Weight 171.594 kg Intake & Output: Intake & Output 12/15/21 12/16/21 12/16/21 21:59 05:59 13:59 Intake Total 520 250 Output Total 600 550 Balance -80 -300 Weight 171.594 kg Intake: IV 520 250 Potassium Chloride 40 Meq In 520 Dextrose 5% in Water 500 ml @ 130 mls/hr IV ONCE ONE Rx#: [id number] Veklury 200 mg In Sodium 250 Chloride 0.9% 250 ml @ 500 mls/ hr IV ONCE ONE Rx#:[id number] Output: Void Amount 600 550 Other: Meal Dinner Percent of Meal Consumed 75% Urine Appearance Clear Clear Urine Color Dark Yellow Dark Yellow Urine Odor Normal General appearance: cooperative, moderate distress and severe distress Head Head exam: Present atraumatic and normal inspection Eye Eye exam: Present normal appearance ENT ENT exam: Present mucous membranes moist, normal exam and normal external ear exam Additional comments: BiPAP in place Neck Neck exam: Present normal inspection Respiratory Respiratory exam: Present decreased breath sounds Cardiovascular Cardiovascular exam: Present normal rate and rhythm GI/Abdominal GI/Abdominal exam: Present normal bowel sounds Back Exam Back exam: Present normal inspection Neurological Exam Neurological exam: Present alert and oriented X3 Skin Skin exam: Present intact and warm OBJ DATA Labs CBC & Chem 7: 12/16/21 05:36 12/16/21 05:35 Labs: Abnormal Lab Results 12/16/21 12/16/21 12/16/21 06:30 05:36 05:35 RBC 3.50 L Hgb 10.7 L Hct 33.1 L POC Hct RDW 14.8 H Neut % (Auto) 80.0 H Lymph % (Auto) 13.0 L Lymph # (Auto) 0.91 L Fibrinogen D-Dimer POC Potassium POC Chloride POC BUN BUN 25 H POC Creatinine Glucose 307 H POC Glucose Hemoglobin A1c Calcium 7.9 L POC WB Ioniz Calcium Phosphorus 1.8 L Ferritin Lactate Dehydrogenase Troponin T 0.09 H* C-Reactive Protein NT-Pro-B Natriuret Pep Albumin 2.9 L Globulin 3.8 H Albumin/Globulin Ratio 0.8 L 12/15/21 12/15/21 12/15/21 23:00 17:30 17:30 RBC Hgb Hct POC Hct RDW Neut % (Auto) Lymph % (Auto) Lymph # (Auto) Fibrinogen D-Dimer POC Potassium POC Chloride POC BUN BUN POC Creatinine Glucose POC Glucose Hemoglobin A1c 7.9 H Calcium POC WB Ioniz Calcium Phosphorus Ferritin 872.4 H Lactate Dehydrogenase 502 H Troponin T 0.11 H* 0.15 H* C-Reactive Protein 16.60 H NT-Pro-B Natriuret Pep Albumin Globulin Albumin/Globulin Ratio 12/15/21 12/15/21 12/15/21 17:30 14:13 10:39 RBC Hgb Hct POC Hct RDW Neut % (Auto) Lymph % (Auto) Lymph # (Auto) Fibrinogen 784 H D-Dimer 2.08 H POC Potassium POC Chloride POC BUN BUN POC Creatinine Glucose POC Glucose Hemoglobin A1c Calcium POC WB Ioniz Calcium Phosphorus Ferritin Lactate Dehydrogenase Troponin T 0.19 H* 0.20 H* C-Reactive Protein NT-Pro-B Natriuret Pep Albumin Globulin Albumin/Globulin Ratio 12/15/21 12/15/21 12/15/21 10:39 10:39 10:39 RBC 3.46 L Hgb 10.7 L Hct 32.3 L POC Hct 35 L RDW 15.0 H Neut % (Auto) Lymph % (Auto) Lymph # (Auto) 1.22 L Fibrinogen D-Dimer POC Potassium 2.9 L* POC Chloride 92 L POC BUN 23 H BUN POC Creatinine 1.4 H Glucose POC Glucose 224 H Hemoglobin A1c Calcium POC WB Ioniz Calcium 0.97 L Phosphorus Ferritin Lactate Dehydrogenase Troponin T C-Reactive Protein NT-Pro-B Natriuret Pep 1420.0 H Albumin Globulin Albumin/Globulin Ratio Meds: Medications Acetaminophen (Acetaminophen 325 Mg Tablet) 650 mg PO Q6HP PRN; Protocol PRN Reason: Per Pain Protocol/Fever > 101 Albuterol/Ipratropium (Ipratropium/Albuterol 3 Ml Ampul.Neb) 3 ml NEB Q4HRT PRN PRN Reason: Wheezing Artificial Tears (Carboxymethylcellulose Sodium 1 Each Droper.Gel) 1 each OU TID [facility] Last Admin: 12/15/21 21:34 Dose: 1 each Documented by: Cyanocobalamin (Cyanocobalamin (Vitamin B-12) 500 Mcg Tablet) 1,000 mcg PO DAILY [facility] Dexamethasone (Dexamethasone 10 Mg/Ml Vial) 6 mg IV DAILY [facility] Dextrose (Dextrose 50% 50 Ml Vial) 0 ml IV UD PRN PRN Reason: Hypoglycemia Diagnostic Test (Pha) (Accu-Chek 1 Each Strip) 1 each FS ACHS [facility] Last Admin: 12/15/21 21:32 Dose: 1 each Documented by: Docusate Sodium (Docusate Sodium 100 Mg Capsule) 100 mg PO BID [facility] Last Admin: 12/15/21 21:26 Dose: Not Given Documented by: Furosemide (Furosemide 40 Mg/4 Ml Vial) 40 mg IV BIDD [facility] Last Admin: 12/15/21 18:00 Dose: Not Given Documented by: Gabapentin (Gabapentin 300 Mg Capsule) 300 mg PO TIDP PRN PRN Reason: pain Glucose (Dextrose 31 Gm Oral.Susp) 15 gm PO PRN PRN PRN Reason: Hypoglycemia Heparin Sodium (Porcine) (Heparin 5,000 Unit/Ml Vial) 5,000 unit SQ Q12 [facility] Last Admin: 12/15/21 21:32 Dose: 5,000 unit Documented by: Potassium Chloride 20 meq/ (Dextrose) 260 mls @ 130 mls/hr IV DAILYP PRN PRN Reason: POTASSIUM LEVEL 2.5-2.9. REMDESIVIR 100 mg/ Sodium (Chloride) 250 mls @ 500 mls/hr IV DAILY@1500 [facility] Stop: 12/19/21 15:29 Insulin Glargine (Insulin Glargine, Human 1 Unit/0.01 Ml) 58 unit SQ BID [facility] Last Admin: 12/15/21 21:32 Dose: 58 unit Documented by: Insulin Human Lispro (Insulin Lispro 1 Unit/0.01 Ml Unit) 40 unit SQ TIDAC [facility] Insulin Human Lispro (Insulin Lispro 1 Unit/0.01 Ml Unit) 0 unit SQ ACHS [facility]; Protocol Last Admin: 12/15/21 21:33 Dose: 10 unit Documented by: Lactulose (Lactulose 20 Gm/30 Ml Oral.Irene) 10 gm PO DAILYP PRN PRN Reason: Constipation Lisinopril (Lisinopril 20 Mg Tablet) 40 mg PO DAILY [facility] Magnesium Oxide (Magnesium Oxide 400 Mg Tablet) 400 mg PO DAILY [facility] Methocarbamol (Methocarbamol 750 Mg Tablet) 750 mg PO BIDP PRN PRN Reason: Spasms Metoprolol Tartrate (Metoprolol Tartrate 50 Mg Tablet) 50 mg PO BID [facility] Last Admin: 12/15/21 21:32 Dose: 50 mg Documented by: Ondansetron HCl (Ondansetron 4 Mg/2 Ml Vial) 4 mg IV Q4HP PRN; Protocol PRN Reason: Nausea And Vomiting Potassium Chloride (Potassium Chloride 20 Meq Tablet) 20 meq PO DAILYP PRN PRN Reason: K LEVEL 3.0-3.4 Senna (Sennosides 1 Tablet) 2 tab PO HSP PRN PRN Reason: Constipation Simvastatin (Simvastatin 40 Mg Tablet) 40 mg PO QHS [facility] Last Admin: 12/15/21 21:32 Dose: 40 mg Documented by: Sodium Chloride (0.9 % Sodium Chloride 10 Ml Syringe) 10 ml IV Q8 [facility] Last Admin: 12/16/21 06:29 Dose: 10 ml Documented by: Vitamin D (Vitamin D3 125 Mcg Tablet) 125 mcg PO DAILY [facility] A/P Assessment and plan (1) Acute respiratory failure with hypoxia: Status: Acute (2) Anemia due to stage 3a chronic kidney disease: Status: Chronic (3) Chronic kidney disease (CKD) stage G3a/A1, moderately decreased glomerular filtration rate (GFR) between 45-59 mL/min/1.73 square meter and albuminuria creatinine ratio less than 30 mg/g: Status: Chronic (4) Hypertension in stage 3 chronic kidney disease due to type 2 diabetes jordon itus: Status: Chronic (5) Diabetes mellitus treated with insulin and oral medication: Status: Chronic (6) Hyperlipidemia: Status: Chronic (7) CHF exacerbation: Status: Acute (8) Morbid obesity: Status: Chronic (9) Hypokalemia: Status: Acute (10) Pneumonia due to COVID-19 virus: Status: Acute Narrative A/P Narrative: Assessment and Plans: 1. Acute respiratory failure with hypoxia: DDx: CHF with exacerbation, CoVID pneumonia Stays in inpatient PCU with telemetry [place] negative, [place] positive Supplemental oxygen therapy, titrate to achieve spo2>=92%, currently at BiPAP 15/7, FiO2 75% Serial lactic acid Inflammatory markers ABG cbc w/ auto diff in the morning to trend WBC 2D echocardiogram, results pending Strict intake and output Daily weigh 2L/day fluid restriction Lasix 40mg IV BID Metoprolol tartrate Lisinopril Isolations: airborne and contact Dexamethasone Remdesivir Baricitinib Tylenol PRN fever Robitussin DM PRN cough DuoNEB NEB wheezing Ativan PO PRN anxiety 2. T2DM with diabetic neuropathy: HgA1c 7.9 Hold oral hypoglycemics Lantus 58 unit BID Aspart 40 unit TID [employer] insulin AC HS Accu Chek AC HS Hypoglycemia protocol Diabetic diet Gabapentin PRN neuropathic pain 3. Essential HTN: Metoprolol tartrate Lisinopril 4. Mixed dyslipidemia: Continue statin therapy 5. Morbid obesity: [place] patient on life style modifications including regular exercise and regular diet in order to lose weight 6. Anemia in chronic kidney disease stage 3: Avoid nephrotoxic agents Saline lock CMP daily to trend kidney functions cbc w/ auto diff in the morning to trend H/H 7. Hypokalemia: PO/IV potassium replacement CMP in the morning to trend serum potassium level, repeat replacement as needed Also check serum Mg level and replace as needed GI ppx: IV Protonix DVT ppx: Heparin Code status: Full Prognosis: extremely guarded Disposition: inpatient PCU telemetry Time Spent With Patient Time: Total time spent is greater than 50% in coordination of care (as documented) at patient's floor/unit and/or counseling patient: Total time spent with greater than 50% in coordination of care (as documented) at patient's floor/unit and/or counseling patient:: Greater than 35 minutes
[2021-12-16] MEDS ORDERED: ATORVASTATIN 40 MG TABLET PO SCH (09:00)
[2021-12-16] MEDS: DOCUSATE SODIUM 100 MG CAPSULE PO SCH ×2 (09:27→20:24)
[2021-12-16] MEDS: CARBOXYMETHYLCELLULOSE SODIUM 1 EACH DROPER.GEL OU SCH ×3 (09:42→20:21)
[2021-12-16] MEDS: VITAMIN D3 125 MCG TABLET PO SCH (09:42)
[2021-12-16] MEDS: METHOCARBAMOL 750 MG TABLET PO PRN (09:42)
[2021-12-16] MEDS: DEXAMETHASONE 10 MG/ML VIAL IV SCH (09:43)
[2021-12-16] MEDS: HEPARIN 5,000 UNIT/ML VIAL SQ SCH ×2 (09:43→20:23)
[2021-12-16] MEDS: METOPROLOL TARTRATE 50 MG TABLET PO SCH ×2 (09:43→20:21)
[2021-12-16] MEDS: CYANOCOBALAMIN (VITAMIN B-12) 500 MCG TABLET PO SCH (09:43)
[2021-12-16] MEDS: LORazepam 1 MG TABLET PO PRN ×3 (09:43→23:37)
[2021-12-16] MEDS: MAGNESIUM OXIDE 400 MG TABLET PO SCH (09:44)
[2021-12-16] MEDS: FUROSEMIDE 40 MG/4 ML VIAL IV SCH ×2 (09:44→16:57)
[2021-12-16] MEDS: INSULIN GLARGINE, HUMAN 1 UNIT/0.01 ML SQ SCH ×2 (09:44→20:22)
[2021-12-16] MEDS: INSULIN LISPRO 1 UNIT/0.01 ML UNIT SQ SCH ×8 (09:44→20:22)
[2021-12-16] MEDS: BARICITINIB 2 MG TABLET PO SCH (09:45)
[2021-12-16] MEDS: LISINOPRIL 20 MG TABLET PO SCH (09:45)
[2021-12-16] MEDS ORDERED: REMDESIVIR 100 MG in 0.9 % SODIUM CHLORIDE 250 ML IV SCH (15:00)
[2021-12-16] MEDS ORDERED: SODIUM PHOSPHATE 30 MMOL in DEXTROSE 5% IN WATER 500 ML IV ONE (16:00)
[2021-12-16] MEDS: GABAPENTIN 300 MG CAPSULE PO PRN (20:21)
[2021-12-16] MEDS: SIMVASTATIN 40 MG TABLET PO SCH (20:21)
[2021-12-16] MEDS: ACETAMINOPHEN 325 MG TABLET PO PRN (20:21)
[2021-12-17 07:19] LABS: Basophils # (Auto) 0 K/mcL (0.00-0.30); Basophils % (Auto) 0 % (0.0-2.0); Eosinophils # (Auto) 0 K/mcL (0.00-0.70); Eosinophils % (Auto) 0 % (0.0-7.0); Hematocrit 32.6 % (40.1-51.0); Hemoglobin 10.6 g/dL (13.7-17.5); Mean Cell Volume 94.2 fL (80.0-100.0); Mean Corpuscular HGB Conc 32.5 g/dL (31.0-36.0); Mean Platelet Volume 9.5 fL (7.4-10.4); Monocytes # (Auto) 0.44 K/mcL (0.10-0.90); Monocytes % (Auto) 6.1 % (1.0-12.0); Neutrophils % (Auto) 75.9 % (38.0-78.0); Platelet Count 259 K/mcL (140-440); RBC 3.46 M/mcL (4.63-6.08); Red Cell Distribution Width 14.6 % (11.5-14.5); WBC 7.2 K/mcL (4.5-11.0)
[2021-12-17 07:35] LABS: ALT/SGPT 21 U/L (<40); AST/SGOT 32 U/L (<40); Albumin 2.7 gm/dL (3.2-5.2); Albumin/Globulin Ratio 0.7 (1.0-2.3); Alkaline Phosphatase 47 U/L (39-117); Bilirubin,Total 0.2 mg/dL (0.1-1.0); Blood Urea Nitrogen 34 mg/dL (8-23); Calcium 8.2 mg/dL (8.6-10.4); Carbon Dioxide 31 mmol/L (22-30); Chloride 100 mmol/L (96-108); Globulin 3.9 gm/dL (2.2-3.7); Glomerular Filtration Rate 72; Glucose 225 mg/dL (70-105); Phosphorous 2.5 mg/dL (2.5-4.5)
[2021-12-17] MEDS: 0.9 % SODIUM CHLORIDE 10 ML SYRINGE IV SCH ×4 (08:21→21:07)
--- NOTE | 2021-12-17 09:33 | Internal Med Progress Note ---
SUBJECTIVE Subjective Patient information: Note initiated : 12/17/21 at 9:32 am Service Date, if different from initiated Date: [] Patient: Jose Young a 61 y/o M admitted on 12/15/21 for Weak. Chief Complaint: [] Principal diagnosis: CoVID pneumonia, CHF exacerbation Interval history: Mr. Young is a 61 year old M history of congestive heart failure, chronic kidney disease stage III, morbid obesity, essential hypertension, mixed dyslipidemia, type 2 diabetes mellitus, presenting with 3 weeks history of shortness of breath, cough, fever, chills, and bilateral leg swellings. He ran out of his diuretics Lasix 3 weeks ago. Since then, he had gradually worsening shortness of breath, cough, fever, chills, and bilateral leg swellings. He is also complained of dyspnea on exertions with 20 feet. He is also committing of orthopnea to the point that he has to sleep on the chair. He denies any wheezing. He denies any unintentional weight gain. Patient is vaccinated against COVID-pneumonia. Of note, his son was recently being diagnosed with COVID-pneumonia. Labs significant for lack of leukocytosis with WBC 7.3. POC potassium level 2.9. Serum creatinine level 1.4 which is at around his baseline. Serum glucose level 224. Serum troponin level 0.20 followed by 0.19. Serum BNP 1420. [place] negative. [place] pending. Chest x-ray showing severe infiltrates throughout both lungs which could be due to pulmonary edema or severe widespread bilateral pneumonia such as COVID-pneumonia. 12/16: Afebrile overnight. [place] positive. Blood cultures no growth to date. Sputum culture mixed becky. On BiPAP 15/7 FiO2 75%. c/o shortness of breath, improving. c/o productive cough with brown and green sputum. c/o wheezing. c/o chest pain when cough. c/o sweating. Denies any fever or chills. c/o mild anxiety. On Lasix IV, Dexamethasone, and Remdesivir. Add Bariticinib. 12/17: Afebrile overnight. Patient has been lying on his side. Blood cultures no growth to date. Sputum culture mixed becky. Troponin 0.11-->0.09. On BiPAP 15/7 FiO2 60%. c/o shortness of breath, improving. c/o productive cough with brown and green sputum. c/o wheezing. c/o chest pain when cough. c/o sweating. Denies any fever or chills. c/o mild anxiety. On Lasix IV, Dexamethasone, and Remdesivir. Add Bariticinib. Pertinent ROS: c/o shortness of breath, improving. c/o productive cough with brown and green sputum. c/o wheezing. c/o chest pain when cough. c/o sweating. Denies any fever or chills. c/o mild anxiety. Constitutional Vitals: Vital Signs Temp Pulse Resp BP Pulse Ox 36.1 C L 71 24 H 121/83 96 12/17/21 04:00 12/17/21 07:18 12/17/21 07:18 12/17/21 06:01 12/17/21 07:18 Period Temp Pulse Resp BP Sys/Beck Pulse Ox Last 24 Hr 35.9 C-36.3 C 50-80 9-38 111-148/56-88 88-99 Intake and Output 12/16/21 12/17/21 12/17/21 21:59 05:59 13:59 Intake Total 808 350 Output Total 1500 450 Balance -692 -100 Weight 171.413 kg Intake & Output: Intake & Output 12/16/21 12/17/21 12/17/21 21:59 05:59 13:59 Intake Total 808 350 Output Total 1500 450 Balance -692 -100 Weight 171.413 kg Intake: Nourishment/Supplement quantity 240 (ml) IV 108 Veklury 100 mg In Sodium 108 Chloride 0.9% 250 ml @ 500 mls/ hr IV DAILY@1500 [facility] Rx#: [id number] Oral 460 350 Output: Urine Catheter Amount 400 Void Amount 1100 450 Other: Meal Lunch Percent of Meal Consumed 100% Feeding Ability Independent Urine Appearance Clear Clear Urine Color Dark Yellow Dark Yellow Urine Odor Normal Stool Size Small Stool Color Brown Stool Consistency Liquid # Bowel Movements 2 General appearance: cooperative, mild distress and severe distress Head Head exam: Present atraumatic and normal inspection Eye Eye exam: Present normal appearance ENT ENT exam: Present mucous membranes moist, normal exam and normal external ear exam Additional comments: BiPAP mask in place Neck Neck exam: Present normal inspection Respiratory Respiratory exam: Present rhonchi; Absent wheezes Cardiovascular Cardiovascular exam: Present normal rate and rhythm GI/Abdominal GI/Abdominal exam: Present normal bowel sounds Back Exam Back exam: Present normal inspection Neurological Exam Neurological exam: Present alert and oriented X3 Skin Skin exam: Present intact and warm OBJ DATA Labs CBC & Chem 7: 12/17/21 05:54 12/17/21 05:54 Labs: Abnormal Lab Results 12/17/21 12/17/21 12/16/21 05:54 05:54 06:30 RBC 3.46 L Hgb 10.6 L Hct 32.6 L POC Hct RDW 14.6 H Neut % (Auto) Lymph % (Auto) Lymph # (Auto) 1.30 L Fibrinogen D-Dimer POC Potassium POC Chloride Carbon Dioxide 31 H POC BUN BUN 34 H POC Creatinine Glucose 225 H POC Glucose Hemoglobin A1c Calcium 8.2 L POC WB Ioniz Calcium Phosphorus Ferritin Lactate Dehydrogenase Troponin T 0.09 H* C-Reactive Protein NT-Pro-B Natriuret Pep Albumin 2.7 L Globulin 3.9 H Albumin/Globulin Ratio 0.7 L 12/16/21 12/16/21 12/15/21 05:36 05:35 23:00 RBC 3.50 L Hgb 10.7 L Hct 33.1 L POC Hct RDW 14.8 H Neut % (Auto) 80.0 H Lymph % (Auto) 13.0 L Lymph # (Auto) 0.91 L Fibrinogen D-Dimer POC Potassium POC Chloride Carbon Dioxide POC BUN BUN 25 H POC Creatinine Glucose 307 H POC Glucose Hemoglobin A1c Calcium 7.9 L POC WB Ioniz Calcium Phosphorus 1.8 L Ferritin Lactate Dehydrogenase Troponin T 0.11 H* C-Reactive Protein NT-Pro-B Natriuret Pep Albumin 2.9 L Globulin 3.8 H Albumin/Globulin Ratio 0.8 L 12/15/21 12/15/21 12/15/21 17:30 17:30 17:30 RBC Hgb Hct POC Hct RDW Neut % (Auto) Lymph % (Auto) Lymph # (Auto) Fibrinogen 784 H D-Dimer 2.08 H POC Potassium POC Chloride Carbon Dioxide POC BUN BUN POC Creatinine Glucose POC Glucose Hemoglobin A1c 7.9 H Calcium POC WB Ioniz Calcium Phosphorus Ferritin 872.4 H Lactate Dehydrogenase 502 H Troponin T 0.15 H* C-Reactive Protein 16.60 H NT-Pro-B Natriuret Pep Albumin Globulin Albumin/Globulin Ratio 12/15/21 12/15/21 12/15/21 14:13 10:39 10:39 RBC Hgb Hct POC Hct RDW Neut % (Auto) Lymph % (Auto) Lymph # (Auto) Fibrinogen D-Dimer POC Potassium POC Chloride Carbon Dioxide POC BUN BUN POC Creatinine Glucose POC Glucose Hemoglobin A1c Calcium POC WB Ioniz Calcium Phosphorus Ferritin Lactate Dehydrogenase Troponin T 0.19 H* 0.20 H* C-Reactive Protein NT-Pro-B Natriuret Pep 1420.0 H Albumin Globulin Albumin/Globulin Ratio 12/15/21 12/15/21 10:39 10:39 RBC 3.46 L Hgb 10.7 L Hct 32.3 L POC Hct 35 L RDW 15.0 H Neut % (Auto) Lymph % (Auto) Lymph # (Auto) 1.22 L Fibrinogen D-Dimer POC Potassium 2.9 L* POC Chloride 92 L Carbon Dioxide POC BUN 23 H BUN POC Creatinine 1.4 H Glucose POC Glucose 224 H Hemoglobin A1c Calcium POC WB Ioniz Calcium 0.97 L Phosphorus Ferritin Lactate Dehydrogenase Troponin T C-Reactive Protein NT-Pro-B Natriuret Pep Albumin Globulin Albumin/Globulin Ratio Meds: Medications Acetaminophen (Acetaminophen 325 Mg Tablet) 650 mg PO Q6HP PRN; Protocol PRN Reason: Per Pain Protocol/Fever > 101 Last Admin: 12/16/21 20:21 Dose: 650 mg Documented by: Albuterol/Ipratropium (Ipratropium/Albuterol 3 Ml Ampul.Neb) 3 ml NEB Q4HRT PRN PRN Reason: Wheezing Artificial Tears (Carboxymethylcellulose Sodium 1 Each Droper.Gel) 1 each OU TID [facility] Last Admin: 12/16/21 20:21 Dose: 1 each Documented by: Cyanocobalamin (Cyanocobalamin (Vitamin B-12) 500 Mcg Tablet) 1,000 mcg PO DAILY [facility] Last Admin: 12/16/21 09:43 Dose: 1,000 mcg Documented by: Dexamethasone (Dexamethasone 10 Mg/Ml Vial) 6 mg IV DAILY [facility] Last Admin: 12/16/21 09:43 Dose: 6 mg Documented by: Dextrose (Dextrose 50% 50 Ml Vial) 0 ml IV UD PRN PRN Reason: Hypoglycemia Diagnostic Test (Pha) (Accu-Chek 1 Each Strip) 1 each FS ACHS [facility] Last Admin: 12/17/21 08:21 Dose: 1 each Documented by: Docusate Sodium (Docusate Sodium 100 Mg Capsule) 100 mg PO BID [facility] Last Admin: 12/16/21 20:24 Dose: Not Given Documented by: Furosemide (Furosemide 40 Mg/4 Ml Vial) 40 mg IV BIDD [facility] Last Admin: 12/16/21 16:57 Dose: 40 mg Documented by: Gabapentin (Gabapentin 300 Mg Capsule) 300 mg PO TIDP PRN PRN Reason: pain Last Admin: 12/16/21 20:21 Dose: 300 mg Documented by: Glucose (Dextrose 31 Gm Oral.Susp) 15 gm PO PRN PRN PRN Reason: Hypoglycemia Heparin Sodium (Porcine) (Heparin 5,000 Unit/Ml Vial) 5,000 unit SQ Q12 [facility] Last Admin: 12/16/21 20:23 Dose: 5,000 unit Documented by: Potassium Chloride 20 meq/ (Dextrose) 260 mls @ 130 mls/hr IV DAILYP PRN PRN Reason: POTASSIUM LEVEL 2.5-2.9. REMDESIVIR 100 mg/ Sodium (Chloride) 250 mls @ 500 mls/hr IV DAILY@1100 [facility] Stop: 12/19/21 11:29 Insulin Glargine (Insulin Glargine, Human 1 Unit/0.01 Ml) 58 unit SQ BID [facility] Last Admin: 12/16/21 20:22 Dose: 58 unit Documented by: Insulin Human Lispro (Insulin Lispro 1 Unit/0.01 Ml Unit) 40 unit SQ TIDAC [facility] Last Admin: 12/16/21 17:39 Dose: Not Given Documented by: Insulin Human Lispro (Insulin Lispro 1 Unit/0.01 Ml Unit) 0 unit SQ ACHS [facility]; Protocol Last Admin: 12/16/21 20:22 Dose: 12 unit Documented by: Lactulose (Lactulose 20 Gm/30 Ml Oral.Irene) 10 gm PO DAILYP PRN PRN Reason: Constipation Lisinopril (Lisinopril 20 Mg Tablet) 40 mg PO DAILY [facility] Last Admin: 12/16/21 09:45 Dose: Not Given Documented by: Lorazepam (Lorazepam 1 Mg Tablet) 1 mg PO Q6HP PRN PRN Reason: ANXIETY/SEDATION Last Admin: 12/16/21 23:37 Dose: 1 mg Documented by: Magnesium Oxide (Magnesium Oxide 400 Mg Tablet) 400 mg PO DAILY [facility] Last Admin: 12/16/21 09:44 Dose: 400 mg Documented by: Methocarbamol (Methocarbamol 750 Mg Tablet) 750 mg PO BIDP PRN PRN Reason: Spasms Last Admin: 12/16/21 09:42 Dose: 750 mg Documented by: Metoprolol Tartrate (Metoprolol Tartrate 50 Mg Tablet) 50 mg PO BID [facility] Last Admin: 12/16/21 20:21 Dose: 50 mg Documented by: Ondansetron HCl (Ondansetron 4 Mg/2 Ml Vial) 4 mg IV Q4HP PRN; Protocol PRN Reason: Nausea And Vomiting Pantoprazole Sodium (Pantoprazole 40 Mg Vial) 40 mg IV QAMAC [facility] Potassium Chloride (Potassium Chloride 20 Meq Tablet) 20 meq PO DAILYP PRN PRN Reason: K LEVEL 3.0-3.4 Senna (Sennosides 1 Tablet) 2 tab PO HSP PRN PRN Reason: Constipation Simvastatin (Simvastatin 40 Mg Tablet) 40 mg PO QHS [facility] Last Admin: 12/16/21 20:21 Dose: 40 mg Documented by: Sodium Chloride (0.9 % Sodium Chloride 10 Ml Syringe) 10 ml IV Q8 [facility] Last Admin: 12/17/21 08:21 Dose: 10 ml Documented by: Vitamin D (Vitamin D3 125 Mcg Tablet) 125 mcg PO DAILY [facility] Last Admin: 12/16/21 09:42 Dose: 125 mcg Documented by: A/P Assessment and plan (1) Acute respiratory failure with hypoxia: Status: Acute (2) Anemia due to stage 3a chronic kidney disease: Status: Chronic (3) Chronic kidney disease (CKD) stage G3a/A1, moderately decreased glomerular filtration rate (GFR) between 45-59 mL/min/1.73 square meter and albuminuria cre atinine ratio less than 30 mg/g: Status: Chronic (4) Hypertension in stage 3 chronic kidney disease due to type 2 diabetes mellitus: Status: Chronic (5) Diabetes mellitus treated with insulin and oral medication: Status: Chronic (6) Hyperlipidemia: Status: Chronic (7) CHF exacerbation: Status: Acute (8) Morbid obesity: Status: Chronic (9) Hypokalemia: Status: Acute (10) Pneumonia due to COVID-19 virus: Status: Acute (11) Troponin level elevated: Status: Acute Narrative A/P Narrative: Assessment and Plans: 1. Acute respiratory failure with hypoxia: DDx: CHF with exacerbation, CoVID pneumonia Stays in inpatient PCU with telemetry [place] negative, [place] positive Supplemental oxygen therapy, titrate to achieve spo2>=92%, currently at BiPAP 15/7, FiO2 60%. Will switch to high flow oxygen during the day as long as possible and back to BiPAP at night while sleeping Serial lactic acid Inflammatory markers ABG cbc w/ auto diff in the morning to trend WBC 2D echocardiogram, results pending Strict intake and output Daily weigh 2L/day fluid restriction Lasix 40mg IV BID Metoprolol tartrate Lisinopril Proning 16hours/day as tolerated Isolations: airborne and contact Dexamethasone Remdesivir Baricitinib Tylenol PRN fever Robitussin DM PRN cough DuoNEB NEB wheezing Ativan PO PRN anxiety 2. T2DM with diabetic neuropathy: HgA1c 7.9 Hold oral hypoglycemics Lantus 58 unit BID Aspart 40 unit TID [employer] scale insulin AC HS Accu Chek AC HS Hypoglycemia protocol Diabetic diet Gabapentin PRN neuropathic pain 3. Essential HTN: Metoprolol tartrate Lisinopril 4. Mixed dyslipidemia: Continue statin therapy 5. Morbid obesity: [employer] patient on life style modifications including regular exercise and regular diet in order to lose weight 6. Anemia in chronic kidney disease stage 3: Avoid nephrotoxic agents Saline lock CMP daily to trend kidney functions cbc w/ auto diff in the morning to trend H/H 7. Hypokalemia: RESOLVED PO/IV potassium replacement CMP in the morning to trend serum potassium level, repeat replacement as needed Also check serum Mg level and replace as needed 8. Elevated serum troponin level: Likely due to increased caardiac load from respiratory distress/failure Serial serum troponin level, 0.11-->0.09 GI ppx: IV Protonix DVT ppx: Heparin Code status: Full Prognosis: extremely guarded Disposition: inpatient PCU telemetry Time Spent With Patient Time: Total time spent is greater than 50% in coordination of care (as documented) at patient's floor/unit and/or counseling patient: Total time spent with greater than 50% in coordination of care (as documented) at patient's floor/unit and/or counseling patient:: Greater than 35 minutes
[2021-12-17] MEDS: METHOCARBAMOL 750 MG TABLET PO PRN (09:38)
[2021-12-17] MEDS: GABAPENTIN 300 MG CAPSULE PO PRN (09:38)
[2021-12-17] MEDS: VITAMIN D3 125 MCG TABLET PO SCH (09:38)
[2021-12-17] MEDS: CYANOCOBALAMIN (VITAMIN B-12) 500 MCG TABLET PO SCH (09:38)
[2021-12-17] MEDS: BARICITINIB 2 MG TABLET PO SCH (09:38)
[2021-12-17] MEDS: FUROSEMIDE 40 MG/4 ML VIAL IV SCH ×2 (09:39→16:17)
[2021-12-17] MEDS: DOCUSATE SODIUM 100 MG CAPSULE PO SCH ×2 (09:39→20:58)
[2021-12-17] MEDS: HEPARIN 5,000 UNIT/ML VIAL SQ SCH ×2 (09:39→21:07)
[2021-12-17] MEDS: DEXAMETHASONE 10 MG/ML VIAL IV SCH (09:39)
[2021-12-17] MEDS: CARBOXYMETHYLCELLULOSE SODIUM 1 EACH DROPER.GEL OU SCH ×3 (09:39→20:58)
[2021-12-17] MEDS: INSULIN GLARGINE, HUMAN 1 UNIT/0.01 ML SQ SCH ×2 (09:40→21:07)
[2021-12-17] MEDS: INSULIN LISPRO 1 UNIT/0.01 ML UNIT SQ SCH ×8 (09:40→20:58)
[2021-12-17] MEDS: MAGNESIUM OXIDE 400 MG TABLET PO SCH (09:41)
[2021-12-17] MEDS: LISINOPRIL 20 MG TABLET PO SCH (09:41)
[2021-12-17] MEDS: METOPROLOL TARTRATE 50 MG TABLET PO SCH ×2 (09:41→20:58)
[2021-12-17] MEDS: PANTOPRAZOLE 40 MG VIAL IV SCH (09:43)
[2021-12-17] MEDS: REMDESIVIR 100 MG in 0.9 % SODIUM CHLORIDE 250 ML IV SCH (12:23)
[2021-12-17] MEDS: SODIUM CHLORIDE NASAL 1 SPRAY BOTTLE NAS PRN (16:17)
[2021-12-17] MEDS: SIMVASTATIN 40 MG TABLET PO SCH (21:08)
[2021-12-18] MEDS: 0.9 % SODIUM CHLORIDE 10 ML SYRINGE IV SCH ×3 (04:19→20:04)
[2021-12-18 07:04] LABS: Basophils # (Auto) 0.01 K/mcL (0.00-0.30); Basophils % (Auto) 0.1 % (0.0-2.0); Eosinophils # (Auto) 0.02 K/mcL (0.00-0.70); Eosinophils % (Auto) 0.2 % (0.0-7.0); Lymphocytes # (Auto) 1.81 K/mcL (1.50-4.80); Lymphocytes % (Auto) 22.1 % (15.5-49.0); Mean Cell Volume 93.9 fL (80.0-100.0); Mean Corpuscular HGB Conc 32.4 g/dL (31.0-36.0); Mean Platelet Volume 9.7 fL (7.4-10.4); Monocytes # (Auto) 0.57 K/mcL (0.10-0.90); Neutrophils % (Auto) 70.6 % (38.0-78.0); Platelet Count 323 K/mcL (140-440); RBC 3.62 M/mcL (4.63-6.08); Red Cell Distribution Width 14.3 % (11.5-14.5); WBC 8.2 K/mcL (4.5-11.0)
[2021-12-18] MEDS: FUROSEMIDE 40 MG/4 ML VIAL IV SCH (07:38)
[2021-12-18] MEDS: PANTOPRAZOLE 40 MG VIAL IV SCH (07:38)
[2021-12-18 08:01] LABS: ALT/SGPT 22 U/L (<40); AST/SGOT 32 U/L (<40); Albumin 3.1 gm/dL (3.2-5.2); Albumin/Globulin Ratio 0.9 (1.0-2.3); Alkaline Phosphatase 51 U/L (39-117); Bilirubin,Total 0.3 mg/dL (0.1-1.0); Blood Urea Nitrogen 35 mg/dL (8-23); Calcium 8.5 mg/dL (8.6-10.4); Carbon Dioxide 33 mmol/L (22-30); Chloride 100 mmol/L (96-108); Globulin 3.5 gm/dL (2.2-3.7); Glomerular Filtration Rate 72; Glucose 90 mg/dL (70-105); Phosphorous 2.5 mg/dL (2.5-4.5)
[2021-12-18] MEDS: INSULIN GLARGINE, HUMAN 1 UNIT/0.01 ML SQ SCH ×2 (09:02→20:05)
[2021-12-18] MEDS: DEXAMETHASONE 10 MG/ML VIAL IV SCH (09:02)
[2021-12-18] MEDS: DOCUSATE SODIUM 100 MG CAPSULE PO SCH ×2 (09:02→19:53)
[2021-12-18] MEDS: HEPARIN 5,000 UNIT/ML VIAL SQ SCH ×2 (09:02→20:04)
[2021-12-18] MEDS: METOPROLOL TARTRATE 50 MG TABLET PO SCH ×2 (09:03→20:07)
[2021-12-18] MEDS: BARICITINIB 2 MG TABLET PO SCH (09:03)
[2021-12-18] MEDS: MAGNESIUM OXIDE 400 MG TABLET PO SCH (09:03)
[2021-12-18] MEDS: CARBOXYMETHYLCELLULOSE SODIUM 1 EACH DROPER.GEL OU SCH ×3 (09:04→20:05)
[2021-12-18] MEDS: CYANOCOBALAMIN (VITAMIN B-12) 500 MCG TABLET PO SCH (09:04)
[2021-12-18] MEDS: LISINOPRIL 20 MG TABLET PO SCH (09:04)
[2021-12-18] MEDS: VITAMIN D3 125 MCG TABLET PO SCH (09:04)
--- NOTE | 2021-12-18 09:26 | EKG ---
[facility] Test Date: 2021-12-15 Pat Name: Jose Young Department: ED Room: Gender: Male [employer]: EMILIA : [id number] Requested By: Tj Rosenthal Order Number: [id number] Reading MD: Lambert Hammond Measurements Intervals [place] Rate: 91 P: -19 GA: 186 QRS: 0 QRSD: 94 T: 52 QT: 412 QTc: 508 Interpretive Statements Sinus rhythm Minimal ST depression, lateral leads Prolonged QT interval Electronically Signed On 12-18-2021 9:26:02 PST by Lambert Hammond /store/[id number]
[2021-12-18] MEDS: INSULIN LISPRO 1 UNIT/0.01 ML UNIT SQ SCH ×7 (09:50→20:52)
[2021-12-18] MEDS: SODIUM CHLORIDE NASAL 1 SPRAY BOTTLE NAS PRN (09:55)
[2021-12-18] MEDS: REMDESIVIR 100 MG in 0.9 % SODIUM CHLORIDE 250 ML IV SCH (11:00)
--- NOTE | 2021-12-18 12:32 | Internal Med Progress Note ---
SUBJECTIVE Subjective Patient information: Note initiated : 12/18/21 at 12:25 pm Service Date, if different from initiated Date: [] Patient: Jose Young a 61 y/o M admitted on 12/15/21 for Weak. Chief Complaint: [] Principal diagnosis: CoVID pneumonia, CHF exacerbation Interval history: Mr. Young is a 61 year old M history of congestive heart failure, chronic kidney disease stage III, morbid obesity, essential hypertension, mixed dyslipidemia, type 2 diabetes mellitus, presenting with 3 weeks history of shortness of breath, cough, fever, chills, and bilateral leg swellings. He ran out of his diuretics Lasix 3 weeks ago. Since then, he had gradually worsening shortness of breath, cough, fever, chills, and bilateral leg swellings. He is also complained of dyspnea on exertions with 20 feet. He is also committing of orthopnea to the point that he has to sleep on the chair. He denies any wheezing. He denies any unintentional weight gain. Patient is vaccinated against COVID-pneumonia. Of note, his son was recently being diagnosed with COVID-pneumonia. Labs significant for lack of leukocytosis with WBC 7.3. POC potassium level 2.9. Serum creatinine level 1.4 which is at around his baseline. Serum glucose level 224. Serum troponin level 0.20 followed by 0.19. Serum BNP 1420. Eunice negative. Venus pending. Chest x-ray showing severe infiltrates throughout both lungs which could be due to pulmonary edema or severe widespread bilateral pneumonia such as COVID-pneumonia. 12/16: Afebrile overnight. Venus positive. Blood cultures no growth to date. Sputum culture mixed becky. On BiPAP 15/7 FiO2 75%. c/o shortness of breath, improving. c/o productive cough with brown and green sputum. c/o wheezing. c/o chest pain when cough. c/o sweating. Denies any fever or chills. c/o mild anxiety. On Lasix IV, Dexamethasone, and Remdesivir. Add Bariticinib. 12/17: Afebrile overnight. Patient has been lying on his side. Blood cultures no growth to date. Sputum culture mixed becky. Troponin 0.11-->0.09. On BiPAP 15/7 FiO2 60%. c/o shortness of breath, improving. c/o productive cough with brown and green sputum. c/o wheezing. c/o chest pain when cough. c/o sweating. Denies any fever or chills. c/o mild anxiety. On Lasix IV, Dexamethasone, and Remdesivir. Add Bariticinib. 12/18: Afebrile overnight. Was on BiPAP overnight, been switched to high flow oxygen earlier in the morning with 35L/min, FiO2 65%. Did not tolerate proning. Sputum culture grew H influenzae. c/o shortness of breath, improving. c/o productive cough with green sputum. Denies wheezing. c/o chest pain when cough. Denies fever, chills, or sweating. On Baricitinib, Remdesivir, and Dexamethasone. Switch Lasix from IV to PO, resume HCTZ-Lisinopril from home regimen. All Rocephin as coverage for bacterial pneumonia. Pertinent ROS: c/o shortness of breath, improving. c/o productive cough with green sputum. Denies wheezing. c/o chest pain when cough. Denies fever, chills, or sweating. Constitutional Vitals: Vital Signs Temp Pulse Resp BP Pulse Ox 36.3 C 63 24 H 128/56 93 12/18/21 08:02 12/18/21 10:20 12/18/21 08:00 12/18/21 10:20 12/18/21 10:20 Period Temp Pulse Resp BP Sys/Beck Pulse Ox Last 24 Hr 36.3 C-36.8 C 52-83 16-25 128-158/55-94 85-99 Intake and Output 12/17/21 12/18/21 12/18/21 21:59 05:59 13:59 Intake Total 300 487 Output Total 4474 703 3274 Balance -1199 250 -913 Weight 171.05 kg Intake & Output: Intake & Output 12/17/21 12/18/21 12/18/21 21:59 05:59 13:59 Intake Total 300 487 Output Total 0732 370 6426 Balance -1200 250 -913 Weight 171.05 kg Intake: Nourishment/Supplement quantity 237 (ml) IV 250 Veklury 100 mg In Sodium 250 Chloride 0.9% 250 ml @ 500 mls/ hr IV DAILY@1100 [facility] Rx#: [id number] Oral 300 Output: Void Amount 1963 919 [id number] Other: Meal Dinner Breakfast Percent of Meal Consumed 100% 100% Feeding Ability Independent Independent Nourishment/Supplement name [place] Urine Appearance Clear Clear Clear Urine Color Bright Yellow Dark Yellow Bright Yellow Urine Odor Normal Stool Size Moderate Stool Color Brown Stool Consistency Liquid # Bowel Movements 1 General appearance: cooperative, morbidly obese and no acute distress Head Head exam: Present atraumatic and normal inspection Eye Eye exam: Present normal appearance ENT ENT exam: Present mucous membranes moist, normal exam and normal external ear exam Additional comments: High flow oxygen in place Neck Neck exam: Present normal inspection Respiratory Respiratory exam: Present rhonchi Cardiovascular Cardiovascular exam: Present normal rate and rhythm GI/Abdominal GI/Abdominal exam: Present normal bowel sounds Back Exam Back exam: Present normal inspection Neurological Exam Neurological exam: Present alert and oriented X3 Skin Skin exam: Present intact and warm OBJ DATA Labs CBC & Chem 7: 12/18/21 06:01 12/18/21 06:01 Labs: Abnormal Lab Results 12/18/21 12/18/21 12/17/21 06:01 06:01 09:45 RBC 3.62 L Hgb 11.0 L Hct 34.0 L RDW Neut % (Auto) Lymph % (Auto) Lymph # (Auto) Fibrinogen D-Dimer Carbon Dioxide 33 H BUN 35 H Glucose Hemoglobin A1c Calcium 8.5 L Phosphorus Ferritin Lactate Dehydrogenase Troponin T 0.12 H* C-Reactive Protein Albumin 3.1 L Globulin Albumin/Globulin Ratio 0.9 L 12/17/21 12/17/21 12/16/21 05:54 05:54 06:30 RBC 3.46 L Hgb 10.6 L Hct 32.6 L RDW 14.6 H Neut % (Auto) Lymph % (Auto) Lymph # (Auto) 1.30 L Fibrinogen D-Dimer Carbon Dioxide 31 H BUN 34 H Glucose 225 H Hemoglobin A1c Calcium 8.2 L Phosphorus Ferritin Lactate Dehydrogenase Troponin T 0.09 H* C-Reactive Protein Albumin 2.7 L Globulin 3.9 H Albumin/Globulin Ratio 0.7 L 12/16/21 12/16/21 12/15/21 05:36 05:35 23:00 RBC 3.50 L Hgb 10.7 L Hct 33.1 L RDW 14.8 H Neut % (Auto) 80.0 H Lymph % (Auto) 13.0 L Lymph # (Auto) 0.91 L Fibrinogen D-Dimer Carbon Dioxide BUN 25 H Glucose 307 H Hemoglobin A1c Calcium 7.9 L Phosphorus 1.8 L Ferritin Lactate Dehydrogenase Troponin T 0.11 H* C-Reactive Protein Albumin 2.9 L Globulin 3.8 H Albumin/Globulin Ratio 0.8 L 12/15/21 12/15/21 12/15/21 17:30 17:30 17:30 RBC Hgb Hct RDW Neut % (Auto) Lymph % (Auto) Lymph # (Auto) Fibrinogen 784 H D-Dimer 2.08 H Carbon Dioxide BUN Glucose Hemoglobin A1c 7.9 H Calcium Phosphorus Ferritin 872.4 H Lactate Dehydrogenase 502 H Troponin T 0.15 H* C-Reactive Protein 16.60 H Albumin Globulin Albumin/Globulin Ratio 12/15/21 14:13 RBC Hgb Hct RDW Neut % (Auto) Lymph % (Auto) Lymph # (Auto) Fibrinogen D-Dimer Carbon Dioxide BUN Glucose Hemoglobin A1c Calcium Phosphorus Ferritin Lactate Dehydrogenase Troponin T 0.19 H* C-Reactive Protein Albumin Globulin Albumin/Globulin Ratio Meds: Medications Acetaminophen (Acetaminophen 325 Mg Tablet) 650 mg PO Q6HP PRN; Protocol PRN Reason: Per Pain Protocol/Fever > 101 Last Admin: 12/16/21 20:21 Dose: 650 mg Documented by: Albuterol/Ipratropium (Ipratropium/Albuterol 3 Ml Ampul.Neb) 3 ml NEB Q4HRT PRN PRN Reason: Wheezing Artificial Tears (Carboxymethylcellulose Sodium 1 Each Droper.Gel) 1 each OU TID [facility] Last Admin: 12/18/21 09:04 Dose: Not Given Documented by: Benzonatate (Benzonatate 100 Mg Capsule) 200 mg PO TIDP PRN PRN Reason: Cough Cyanocobalamin (Cyanocobalamin (Vitamin B-12) 500 Mcg Tablet) 1,000 mcg PO DAILY [facility] Last Admin: 12/18/21 09:04 Dose: 1,000 mcg Documented by: Dexamethasone (Dexamethasone 10 Mg/Ml Vial) 6 mg IV DAILY [facility] Last Admin: 12/18/21 09:02 Dose: 6 mg Documented by: Dextrose (Dextrose 50% 50 Ml Vial) 0 ml IV UD PRN PRN Reason: Hypoglycemia Diagnostic Test (Pha) (Accu-Chek 1 Each Strip) 1 each FS ACHS [facility] Last Admin: 12/18/21 11:38 Dose: 1 each Documented by: Docusate Sodium (Docusate Sodium 100 Mg Capsule) 100 mg PO BID [facility] Last Admin: 12/18/21 09:02 Dose: Not Given Documented by: Furosemide (Furosemide 40 Mg Tablet) 80 mg PO QAM [facility] Gabapentin (Gabapentin 300 Mg Capsule) 300 mg PO TIDP PRN PRN Reason: pain Last Admin: 12/17/21 09:38 Dose: 300 mg Documented by: Glucose (Dextrose 31 Gm Oral.Susp) 15 gm PO PRN PRN PRN Reason: Hypoglycemia Heparin Sodium (Porcine) (Heparin 5,000 Unit/Ml Vial) 5,000 unit SQ Q12 [facility] Last Admin: 12/18/21 09:02 Dose: 5,000 unit Documented by: Hydrochlorothiazide (Hydrochlorothiazide 12.5 Mg Capsule) 12.5 mg PO DAILY [facility] Potassium Chloride 20 meq/ (Dextrose) 260 mls @ 130 mls/hr IV DAILYP PRN PRN Reason: POTASSIUM LEVEL 2.5-2.9. REMDESIVIR 100 mg/ Sodium (Chloride) 250 mls @ 500 mls/hr IV DAILY@1100 [facility] Stop: 12/19/21 11:29 Last Infusion: 12/18/21 11:35 Dose: Infused Documented by: Insulin Glargine (Insulin Glargine, Human 1 Unit/0.01 Ml) 58 unit SQ BID [facility] Last Admin: 12/18/21 09:02 Dose: 58 unit Documented by: Insulin Human Lispro (Insulin Lispro 1 Unit/0.01 Ml Unit) 40 unit SQ TIDAC [facility] Last Admin: 12/18/21 09:50 Dose: Not Given Documented by: Insulin Human Lispro (Insulin Lispro 1 Unit/0.01 Ml Unit) 0 unit SQ ACHS [facility]; Protocol Last Admin: 12/18/21 11:38 Dose: Not Given Documented by: Lactulose (Lactulose 20 Gm/30 Ml Oral.Irene) 10 gm PO DAILYP PRN PRN Reason: Constipation Lisinopril (Lisinopril 20 Mg Tablet) 20 mg PO DAILY [facility] Lorazepam (Lorazepam 1 Mg Tablet) 1 mg PO Q6HP PRN PRN Reason: ANXIETY/SEDATION Last Admin: 12/16/21 23:37 Dose: 1 mg Documented by: Magnesium Oxide (Magnesium Oxide 400 Mg Tablet) 400 mg PO DAILY [facility] Last Admin: 12/18/21 09:03 Dose: 400 mg Documented by: Methocarbamol (Methocarbamol 750 Mg Tablet) 750 mg PO BIDP PRN PRN Reason: Spasms Last Admin: 12/17/21 09:38 Dose: 750 mg Documented by: Metoprolol Tartrate (Metoprolol Tartrate 50 Mg Tablet) 50 mg PO BID [facility] Last Admin: 12/18/21 09:03 Dose: Not Given Documented by: Ondansetron HCl (Ondansetron 4 Mg/2 Ml Vial) 4 mg IV Q4HP PRN; Protocol PRN Reason: Nausea And Vomiting Pantoprazole Sodium (Pantoprazole 40 Mg Vial) 40 mg IV QAMAC [facility] Last Admin: 12/18/21 07:38 Dose: 40 mg Documented by: Potassium Chloride (Potassium Chloride 20 Meq Tablet) 20 meq PO DAILYP PRN PRN Reason: K LEVEL 3.0-3.4 Senna (Sennosides 1 Tablet) 2 tab PO HSP PRN PRN Reason: Constipation Simvastatin (Simvastatin 40 Mg Tablet) 40 mg PO QHS [facility] Last Admin: 12/17/21 21:08 Dose: 40 mg Documented by: Sodium Chloride (0.9 % Sodium Chloride 10 Ml Syringe) 10 ml IV Q8 [facility] Last Admin: 12/18/21 04:19 Dose: 10 ml Documented by: Sodium Chloride (Sodium Chloride Nasal 1 [place] Bottle) 2 spray YANI Q4HP PRN PRN Reason: Congestion Last Admin: 12/18/21 09:55 Dose: 2 spray Documented by: Vitamin D (Vitamin D3 125 Mcg Tablet) 125 mcg PO DAILY [facility] Last Admin: 12/18/21 09:04 Dose: 125 mcg Documented by: A/P Assessment and plan (1) Acute respiratory failure with hypoxia: Status: Acute (2) Anemia due to stage 3a chronic kidney disease: Status: Chronic (3) Chronic kidney disease (CKD) stage G3a/A1, moderately decreased glomerular filtration rate (GFR) between 45-59 mL/min/1.73 square meter and albuminuria creatinine ratio less than 30 mg/g: Status: Chronic (4) Hypertension in stage 3 chronic kidney disease due to type 2 diabetes mellitus: Status: Chronic (5) Diabetes mellitus treated with insulin and oral medication: Status: Chronic (6) Hyperlipidemia: Status: Chronic (7) CHF exacerbation: Status: Acute (8) Morbid obesity: Status: Chronic (9) Hypokalemia: Status: Acute (10) Pneumonia due to COVID-19 virus: Status: Acute (11) Troponin level elevated: Status: Acute Narrative A/P Narrative: Assessment and Plans: 1. Acute respiratory failure with hypoxia: DDx: CHF with exacerbation, CoVID pneumonia Stays in inpatient PCU with telemetry Eunice negative, Venus positive Supplemental oxygen therapy, titrate to achieve spo2>=92%, currently at high flow oxygen 35L/min FiO2 65%. Stays with high flow oxygen during the day as long as possible and back to BiPAP at night while sleeping Serial lactic acid Inflammatory markers ABG cbc w/ auto diff in the morning to trend WBC 2D echocardiogram, showing mildly reduced systolic function with LVEF 50-55% Strict intake and output Daily weigh 2L/day fluid restriction Lasix 80mg PO daily Metoprolol tartrate HCTZ-Lisinopril Proning 16hours/day as tolerated Isolations: airborne and contact Dexamethasone Remdesivir Baricitinib Tylenol PRN fever Robitussin DM PRN cough DuoNEB NEB wheezing Ativan PO PRN anxiety Sputum culture grew H influenzae, will start Rocephin as coverage for bacterial pneumonia 2. T2DM with diabetic neuropathy: HgA1c 7.9 Hold oral hypoglycemics Lantus 58 unit BID Aspart 40 unit TID [employer] scale insulin AC HS Accu Chek AC HS Hypoglycemia protocol Diabetic diet Gabapentin PRN neuropathic pain 3. Essential HTN: Lasix 80mg PO daily Metoprolol tartrate HCTZ-Lisinopril 4. Mixed dyslipidemia: Continue statin therapy 5. Morbid obesity: Top Former patient on life style modifications including regular exercise and regular diet in order to lose weight 6. Anemia in chronic kidney disease stage 3: Avoid nephrotoxic agents Saline lock CMP daily to trend kidney functions cbc w/ auto diff in the morning to trend H/H 7. Hypokalemia: RESOLVED PO/IV potassium replacement CMP in the morning to trend serum potassium level, repeat replacement as needed Also check serum Mg level and replace as needed 8. Elevated serum troponin level: Likely due to increased caardiac load from respiratory distress/failure Serial serum troponin level, 0.11-->0.09-->0.12 GI ppx: IV Protonix DVT ppx: Heparin Code status: Full Prognosis: extremely guarded Disposition: inpatient PCU telemetry Time Spent With Patient Time: Total time spent is greater than 50% in coordination of care (as documented) at patient's floor/unit and/or counseling patient: Total time spent with greater than 50% in coordination of care (as documented) at patient's floor/unit and/or counseling patient:: Greater than 35 minutes
[2021-12-18] MEDS: cefTRIAXone 1 GM VIAL IV SCH (13:32)
[2021-12-18] MEDS: SIMVASTATIN 40 MG TABLET PO SCH (20:04)
[2021-12-19] MEDS: LORazepam 1 MG TABLET PO PRN ×3 (02:50→20:32)
[2021-12-19] MEDS: 0.9 % SODIUM CHLORIDE 10 ML SYRINGE IV SCH ×3 (05:55→20:33)
[2021-12-19 07:26] LABS: Basophils # (Auto) 0.06 K/mcL (0.00-0.30); Basophils % (Auto) 0.6 % (0.0-2.0); Hematocrit 34.2 % (40.1-51.0); Lymphocytes # (Auto) 2.28 K/mcL (1.50-4.80); Mean Corpuscular HGB Conc 32.2 g/dL (31.0-36.0); Mean Platelet Volume 9.7 fL (7.4-10.4); Monocytes # (Auto) 0.71 K/mcL (0.10-0.90); Monocytes % (Auto) 6.9 % (1.0-12.0); Neutrophils % (Auto) 69.5 % (38.0-78.0); Platelet Count 330 K/mcL (140-440); Red Cell Distribution Width 14.3 % (11.5-14.5); WBC 10.4 K/mcL (4.5-11.0)
[2021-12-19 07:39] LABS: Phosphorous 3.6 mg/dL (2.5-4.5)
[2021-12-19] MEDS: INSULIN LISPRO 1 UNIT/0.01 ML UNIT SQ SCH ×7 (07:45→20:55)
[2021-12-19] MEDS: PANTOPRAZOLE 40 MG VIAL IV SCH (07:46)
[2021-12-19] MEDS: DOCUSATE SODIUM 100 MG CAPSULE PO SCH ×2 (07:46→20:33)
[2021-12-19] MEDS: INSULIN GLARGINE, HUMAN 1 UNIT/0.01 ML SQ SCH (08:10)
[2021-12-19] MEDS: VITAMIN D3 125 MCG TABLET PO SCH (08:32)
[2021-12-19] MEDS: BARICITINIB 2 MG TABLET PO SCH (08:32)
[2021-12-19] MEDS: DEXAMETHASONE 10 MG/ML VIAL IV SCH (08:32)
[2021-12-19] MEDS: cefTRIAXone 1 GM VIAL IV SCH (08:32)
[2021-12-19] MEDS: HEPARIN 5,000 UNIT/ML VIAL SQ SCH ×2 (08:32→20:32)
[2021-12-19] MEDS: FUROSEMIDE 40 MG TABLET PO SCH (08:33)
[2021-12-19] MEDS: LISINOPRIL 20 MG TABLET PO SCH (08:33)
[2021-12-19] MEDS: CYANOCOBALAMIN (VITAMIN B-12) 500 MCG TABLET PO SCH (08:33)
[2021-12-19] MEDS: HYDROCHLOROTHIAZIDE 12.5 MG CAPSULE PO SCH (08:33)
[2021-12-19] MEDS: MAGNESIUM OXIDE 400 MG TABLET PO SCH (08:33)
--- NOTE | 2021-12-19 08:39 | Internal Med Progress Note ---
SUBJECTIVE Subjective Patient information: Note initiated : 12/19/21 at 8:33 am Service Date, if different from initiated Date: [] Patient: Jose Young a 61 y/o M admitted on 12/15/21 for Weak. Chief Complaint: [] Principal diagnosis: CoVID pneumonia, CHF exacerbation Interval history: Mr. Young is a 61 year old M history of congestive heart failure, chronic kidney disease stage III, morbid obesity, essential hypertension, mixed dyslipidemia, type 2 diabetes mellitus, presenting with 3 weeks history of shortness of breath, cough, fever, chills, and bilateral leg swellings. He ran out of his diuretics Lasix 3 weeks ago. Since then, he had gradually worsening shortness of breath, cough, fever, chills, and bilateral leg swellings. He is also complained of dyspnea on exertions with 20 feet. He is also committing of orthopnea to the point that he has to sleep on the chair. He denies any wheezing. He denies any unintentional weight gain. Patient is vaccinated against COVID-pneumonia. Of note, his son was recently being diagnosed with COVID-pneumonia. Labs significant for lack of leukocytosis with WBC 7.3. POC potassium level 2.9. Serum creatinine level 1.4 which is at around his baseline. Serum glucose level 224. Serum troponin level 0.20 followed by 0.19. Serum BNP 1420. Eunice negative. Lima pending. Chest x-ray showing severe infiltrates throughout both lungs which could be due to pulmonary edema or severe widespread bilateral pneumonia such as COVID-pneumonia. 12/16: Afebrile overnight. Lima positive. Blood cultures no growth to date. Sputum culture mixed becky. On BiPAP 15/7 FiO2 75%. c/o shortness of breath, improving. c/o productive cough with brown and green sputum. c/o wheezing. c/o chest pain when cough. c/o sweating. Denies any fever or chills. c/o mild anxiety. On Lasix IV, Dexamethasone, and Remdesivir. Add Bariticinib. 12/17: Afebrile overnight. Patient has been lying on his side. Blood cultures no growth to date. Sputum culture mixed becky. Troponin 0.11-->0.09. On BiPAP 15/7 FiO2 60%. c/o shortness of breath, improving. c/o productive cough with brown and green sputum. c/o wheezing. c/o chest pain when cough. c/o sweating. Denies any fever or chills. c/o mild anxiety. On Lasix IV, Dexamethasone, and Remdesivir. Add Bariticinib. 12/18: Afebrile overnight. Was on BiPAP overnight, been switched to high flow oxygen earlier in the morning with 35L/min, FiO2 65%. Did not tolerate proning. Sputum culture grew H influenzae. c/o shortness of breath, improving. c/o productive cough with green sputum. Denies wheezing. c/o chest pain when cough. Denies fever, chills, or sweating. On Baricitinib, Remdesivir, and Dexamethasone. Switch Lasix from IV to PO, resume HCTZ-Lisinopril from home regimen. All Rocephin as coverage for bacterial pneumonia. 12/19: Afebrile overnight. Blood glucose 53 this morning, normalized after orange juice given. Was on BiPAP overnight, been switched to high flow oxygen earlier in the morning with 40L/min, FiO2 65%. Did not tolerate proning. Sputum culture grew H influenzae. c/o shortness of breath, improving. c/o productive cough with green sputum. Denies wheezing. c/o chest pain when cough. Denies fever, chills, or sweating. On Baricitinib, Remdesivir, and Dexamethasone. Continue PO Lasix and HCTZ-Lisinopril from home regimen. Continue Rocephin as coverage for bacterial pneumonia. Pertinent ROS: c/o shortness of breath, improving. c/o productive cough with green sputum. Denies wheezing. c/o chest pain when cough. Denies fever, chills, or sweating. Constitutional Vitals: Vital Signs Temp Pulse Resp BP Pulse Ox 36.6 C 77 34 H 163/62 85 L 12/19/21 08:00 12/19/21 08:09 12/19/21 08:09 12/19/21 08:00 12/19/21 08:09 Period Temp Pulse Resp BP Sys/Beck Pulse Ox Last 24 Hr 35.9 C-36.6 C 48-77 8-34 122-172/51-87 85-98 Intake and Output 0112/19/21 12/19/21 21:59 05:59 13:59 Intake Total 480 300 Output Total 275 650 350 Balance 205 -350 -350 Weight 172.393 kg Intake & Output: Intake & Output 12/18/21 12/19/21 12/19/21 21:59 05:59 13:59 Intake Total 480 300 Output Total 275 650 350 Balance 205 -350 -350 Weight 172.393 kg Intake: Oral 480 300 Output: Void Amount 275 650 350 Other: Urine Appearance Clear Clear Clear Urine Color Dark Yellow Dark Yellow Dark Yellow Urine Odor Normal Normal Stool Size Smear Stool Color Brown Stool Consistency Liquid # Bowel Movements 1 General appearance: cooperative, no acute distress and severe distress Head Head exam: Present atraumatic and normal inspection Eye Eye exam: Present normal appearance ENT ENT exam: Present mucous membranes moist, normal exam and normal external ear exam Additional comments: high flow oxygen Neck Neck exam: Present normal inspection Respiratory Respiratory exam: Present decreased breath sounds and rhonchi; Absent wheezes Cardiovascular Cardiovascular exam: Present normal rate and rhythm GI/Abdominal GI/Abdominal exam: Present normal bowel sounds Back Exam Back exam: Present normal inspection Neurological Exam Neurological exam: Present alert and oriented X3 Skin Skin exam: Present intact and warm OBJ DATA Labs CBC & Chem 7: 12/19/21 05:27 12/18/21 06:01 Labs: Abnormal Lab Results 12/19/21 12/18/21 12/18/21 05:27 06:01 06:01 RBC 3.60 L 3.62 L Hgb 11.0 L 11.0 L Hct 34.2 L 34.0 L RDW Lymph # (Auto) Carbon Dioxide 33 H BUN 35 H Glucose Calcium 8.5 L Troponin T Albumin 3.1 L Globulin Albumin/Globulin Ratio 0.9 L 12/17/21 12/17/21 12/17/21 09:45 05:54 05:54 RBC 3.46 L Hgb 10.6 L Hct 32.6 L RDW 14.6 H Lymph # (Auto) 1.30 L Carbon Dioxide 31 H BUN 34 H Glucose 225 H Calcium 8.2 L Troponin T 0.12 H* Albumin 2.7 L Globulin 3.9 H Albumin/Globulin Ratio 0.7 L Meds: Medications Acetaminophen (Acetaminophen 325 Mg Tablet) 650 mg PO Q6HP PRN; Protocol PRN Reason: Per Pain Protocol/Fever > 101 Last Admin: 12/16/21 20:21 Dose: 650 mg Documented by: Albuterol/Ipratropium (Ipratropium/Albuterol 3 Ml Ampul.Neb) 3 ml NEB Q4HRT PRN PRN Reason: Wheezing Artificial Tears (Carboxymethylcellulose Sodium 1 Each Droper.Gel) 1 each OU TID [facility] Last Admin: 12/18/21 20:05 Dose: 1 each Documented by: Benzonatate (Benzonatate 100 Mg Capsule) 200 mg PO TIDP PRN PRN Reason: Cough Ceftriaxone Sodium (Ceftriaxone 1 Gm Vial) 1 gm IV Q24H [facility]; Protocol Last Admin: 12/18/21 13:32 Dose: 1 gm Documented by: Cyanocobalamin (Cyanocobalamin (Vitamin B-12) 500 Mcg Tablet) 1,000 mcg PO DAILY [facility] Last Admin: 12/18/21 09:04 Dose: 1,000 mcg Documented by: Dexamethasone (Dexamethasone 10 Mg/Ml Vial) 6 mg IV DAILY [facility] Last Admin: 12/18/21 09:02 Dose: 6 mg Documented by: Dextrose (Dextrose 50% 50 Ml Vial) 0 ml IV UD PRN PRN Reason: Hypoglycemia Diagnostic Test (Pha) (Accu-Chek 1 Each Strip) 1 each FS ACHS [facility] Last Admin: 12/19/21 07:40 Dose: 1 each Documented by: Docusate Sodium (Docusate Sodium 100 Mg Capsule) 100 mg PO BID [facility] Last Admin: 12/19/21 07:46 Dose: Not Given Documented by: Furosemide (Furosemide 40 Mg Tablet) 80 mg PO QAM [facility] Gabapentin (Gabapentin 300 Mg Capsule) 300 mg PO TIDP PRN PRN Reason: pain Last Admin: 12/17/21 09:38 Dose: 300 mg Documented by: Glucose (Dextrose 31 Gm Oral.Susp) 15 gm PO PRN PRN PRN Reason: Hypoglycemia Heparin Sodium (Porcine) (Heparin 5,000 Unit/Ml Vial) 5,000 unit SQ Q12 [facility] Last Admin: 12/18/21 20:04 Dose: 5,000 unit Documented by: Hydrochlorothiazide (Hydrochlorothiazide 12.5 Mg Capsule) 12.5 mg PO DAILY [facility] Potassium Chloride 20 meq/ (Dextrose) 260 mls @ 130 mls/hr IV DAILYP PRN PRN Reason: POTASSIUM LEVEL 2.5-2.9. REMDESIVIR 100 mg/ Sodium (Chloride) 250 mls @ 500 mls/hr IV DAILY@1100 [facility] Stop: 12/19/21 11:29 Last Infusion: 12/18/21 11:35 Dose: Infused Documented by: Insulin Glargine (Insulin Glargine, Human 1 Unit/0.01 Ml) 58 unit SQ HS [facility] Insulin Human Lispro (Insulin Lispro 1 Unit/0.01 Ml Unit) 40 unit SQ TIDAC [facility] Last Admin: 12/19/21 07:45 Dose: Not Given Documented by: Insulin Human Lispro (Insulin Lispro 1 Unit/0.01 Ml Unit) 0 unit SQ ACHS [facility]; Protocol Last Admin: 12/19/21 07:46 Dose: Not Given Documented by: Lactulose (Lactulose 20 Gm/30 Ml Oral.Irene) 10 gm PO DAILYP PRN PRN Reason: Constipation Lisinopril (Lisinopril 20 Mg Tablet) 20 mg PO DAILY [facility] Loperamide HCl (Loperamide 2 Mg Capsule) 2 mg PO PRN PRN PRN Reason: Diarrhea Lorazepam (Lorazepam 1 Mg Tablet) 1 mg PO Q6HP PRN PRN Reason: ANXIETY/SEDATION Last Admin: 12/19/21 02:50 Dose: 1 mg Documented by: Magnesium Oxide (Magnesium Oxide 400 Mg Tablet) 400 mg PO DAILY [facility] Last Admin: 12/18/21 09:03 Dose: 400 mg Documented by: Methocarbamol (Methocarbamol 750 Mg Tablet) 750 mg PO BIDP PRN PRN Reason: Spasms Last Admin: 12/17/21 09:38 Dose: 750 mg Documented by: Metoprolol Tartrate (Metoprolol Tartrate 50 Mg Tablet) 50 mg PO BID [facility] Last Admin: 12/18/21 20:07 Dose: Not Given Documented by: Ondansetron HCl (Ondansetron 4 Mg/2 Ml Vial) 4 mg IV Q4HP PRN; Protocol PRN Reason: Nausea And Vomiting Pantoprazole Sodium ([facility]antoprazole 40 Mg Vial) [facility] Last Admin: 12/19/21 07:46 Dose: 40 mg Documented by: Potassium Chloride (Potassium Chloride 20 Meq Tablet) 20 meq PO DAILYP PRN PRN Reason: K LEVEL 3.0-3.4 Senna (Sennosides 1 Tablet) 2 tab PO HSP PRN PRN Reason: Constipation Simvastatin (Simvastatin 40 Mg Tablet) 40 mg PO QHS [facility] Last Admin: 12/18/21 20:04 Dose: 40 mg Documented by: Sodium Chloride (0.9 % Sodium Chloride 10 Ml Syringe) 10 ml IV Q8 [facility] Last Admin: 12/19/21 05:55 Dose: 10 ml Documented by: Sodium Chloride (Sodium Chloride Nasal 1 [place] Bottle) 2 spray YANI Q4HP PRN PRN Reason: Congestion Last Admin: 12/18/21 09:55 Dose: 2 spray Documented by: Vitamin D (Vitamin D3 125 Mcg Tablet) 125 mcg PO DAILY [facility] Last Admin: 12/18/21 09:04 Dose: 125 mcg Documented by: A/P Assessment and plan (1) Acute respiratory failure with hypoxia: Status: Acute (2) Anemia due to stage 3a chronic kidney disease: Status: Chronic (3) Chronic kidney disease (CKD) stage G3a/A1, moderately decreased glomerular filtration rate (GFR) between 45-59 mL/min/1.73 square meter and albuminuria creatinine ratio less than 30 mg/g: Status: Chronic (4) Hypertension in stage 3 chronic kidney disease due to type 2 diabetes mellitus: Status: Chronic (5) Diabetes mellitus treated with insulin and oral medication: Status: Chronic (6) Hyperlipidemia: Status: Chronic (7) CHF exacerbation: Status: Acute (8) Morbid obesity: Status: Chronic (9) Hypokalemia: Status: Acute (10) Pneumonia due to COVID-19 virus: Status: Acute (11) Troponin level elevated: Status: Acute Narrative A/P Narrative: Assessment and Plans: 1. Acute respiratory failure with hypoxia: DDx: CHF with exacerbation, CoVID pneumonia Stays in inpatient PCU with telemetry Eunice negative, Lima positive Supplemental oxygen therapy, titrate to achieve spo2>=92%, currently at high flow oxygen 40L/min FiO2 65%. Stays with high flow oxygen during the day as long as possible and back to BiPAP at night while sleeping Serial lactic acid Inflammatory markers ABG cbc w/ auto diff in the morning to trend WBC 2D echocardiogram, showing mildly reduced systolic function with LVEF 50-55% Strict intake and output Daily weigh 2L/day fluid restriction Lasix 80mg PO daily Metoprolol tartrate HCTZ-Lisinopril Proning 16hours/day as tolerated Isolations: airborne and contact Dexamethasone Remdesivir Baricitinib Tylenol PRN fever Robitussin DM PRN cough DuoNEB NEB wheezing Ativan PO PRN anxiety Sputum culture grew H influenzae, will start Rocephin as coverage for bacterial pneumonia 2. T2DM with diabetic neuropathy: HgA1c 7.9 Hold oral hypoglycemics Lantus 58 unit BID-->HS to avoid hypoglycemia Aspart 40 unit TID [employer] scale insulin AC HS Accu Chek AC HS Hypoglycemia protocol Diabetic diet Gabapentin PRN neuropathic pain 3. Essential HTN: Lasix 80mg PO daily Metoprolol tartrate HCTZ-Lisinopril 4. Mixed dyslipidemia: Continue statin therapy 5. Morbid obesity: [employer] patient on life style modifications including regular exercise and regular diet in order to lose weight 6. Anemia in chronic kidney disease stage 3: Avoid nephrotoxic agents Saline lock CMP daily to trend kidney functions cbc w/ auto diff in the morning to trend H/H 7. Hypokalemia: RESOLVED PO/IV potassium replacement CMP in the morning to trend serum potassium level, repeat replacement as needed Also check serum Mg level and replace as needed 8. Elevated serum troponin level: Likely due to increased caardiac load from respiratory distress/failure Serial serum troponin level, 0.11-->0.09-->0.12 GI ppx: IV Protonix DVT ppx: Heparin Code status: Full Prognosis: extremely guarded Disposition: inpatient PCU telemetry Time Spent With Patient Time: Total time spent is greater than 50% in coordination of care (as documented) at patient's floor/unit and/or counseling patient: Total time spent with greater than 50% in coordination of care (as documented) at patient's floor/unit and/or counseling patient:: Greater than 35 minutes
[2021-12-19 08:51] LABS: ALT/SGPT 23 U/L (<40); AST/SGOT 34 U/L (<40); Albumin 2.9 gm/dL (3.2-5.2); Albumin/Globulin Ratio 0.9 (1.0-2.3); Alkaline Phosphatase 45 U/L (39-117); Bilirubin,Total 0.3 mg/dL (0.1-1.0); Blood Urea Nitrogen 30 mg/dL (8-23); Calcium 8.3 mg/dL (8.6-10.4); Carbon Dioxide 30 mmol/L (22-30); Chloride 101 mmol/L (96-108); Globulin 3.4 gm/dL (2.2-3.7); Glomerular Filtration Rate 81; Glucose 59 mg/dL (70-105)
[2021-12-19] MEDS: CARBOXYMETHYLCELLULOSE SODIUM 1 EACH DROPER.GEL OU SCH ×3 (09:51→20:33)
[2021-12-19] MEDS: METOPROLOL TARTRATE 50 MG TABLET PO SCH ×2 (10:20→20:32)
[2021-12-19] MEDS: REMDESIVIR 100 MG in 0.9 % SODIUM CHLORIDE 250 ML IV SCH (11:41)
[2021-12-19] MEDS: LOPERAMIDE 2 MG CAPSULE PO PRN ×2 (12:25→12:26)
[2021-12-19] MEDS: ACETAMINOPHEN 325 MG TABLET PO PRN (14:45)
[2021-12-19] MEDS: BENZONATATE 100 MG CAPSULE PO PRN (20:32)
[2021-12-19] MEDS: CHLORHEXIDINE GLUCONATE 1 ML ORAL.SOL SSP SCH (20:32)
[2021-12-19] MEDS: GABAPENTIN 300 MG CAPSULE PO PRN (20:32)
[2021-12-19] MEDS: SIMVASTATIN 40 MG TABLET PO SCH (20:32)
[2021-12-19] MEDS ORDERED: INSULIN GLARGINE, HUMAN 1 UNIT/0.01 ML SQ SCH (21:00)
[2021-12-20] MEDS: 0.9 % SODIUM CHLORIDE 10 ML SYRINGE IV SCH ×3 (05:09→21:01)
[2021-12-20 07:10] LABS: Basophils # (Auto) 0.07 K/mcL (0.00-0.30); Basophils % (Auto) 0.6 % (0.0-2.0); Eosinophils # (Auto) 0.19 K/mcL (0.00-0.70); Eosinophils % (Auto) 1.6 % (0.0-7.0); Hematocrit 35.3 % (40.1-51.0); Hemoglobin 11.2 g/dL (13.7-17.5); Mean Cell Volume 95.1 fL (80.0-100.0); Mean Corpuscular HGB Conc 31.7 g/dL (31.0-36.0); Mean Platelet Volume 9.7 fL (7.4-10.4); Monocytes # (Auto) 0.71 K/mcL (0.10-0.90); Monocytes % (Auto) 6.1 % (1.0-12.0); Neutrophils % (Auto) 72.7 % (38.0-78.0); Platelet Count 364 K/mcL (140-440); RBC 3.71 M/mcL (4.63-6.08); Red Cell Distribution Width 14.5 % (11.5-14.5); WBC 11.6 K/mcL (4.5-11.0)
[2021-12-20 07:55] LABS: Phosphorous 4.6 mg/dL (2.5-4.5)
[2021-12-20 07:57] LABS: ALT/SGPT 24 U/L (<40); AST/SGOT 30 U/L (<40); Albumin 2.8 gm/dL (3.2-5.2); Albumin/Globulin Ratio 0.8 (1.0-2.3); Alkaline Phosphatase 45 U/L (39-117); Bilirubin,Total 0.3 mg/dL (0.1-1.0); Blood Urea Nitrogen 27 mg/dL (8-23); Calcium 8.8 mg/dL (8.6-10.4); Carbon Dioxide 29 mmol/L (22-30); Chloride 98 mmol/L (96-108); Globulin 3.6 gm/dL (2.2-3.7); Glomerular Filtration Rate 81; Glucose 98 mg/dL (70-105)
[2021-12-20] MEDS: DEXAMETHASONE 10 MG/ML VIAL IV SCH (08:07)
[2021-12-20] MEDS: DOCUSATE SODIUM 100 MG CAPSULE PO SCH ×2 (08:07→21:01)
[2021-12-20] MEDS: PANTOPRAZOLE 40 MG VIAL IV SCH (08:07)
[2021-12-20] MEDS: INSULIN LISPRO 1 UNIT/0.01 ML UNIT SQ SCH ×7 (08:07→21:01)
[2021-12-20] MEDS: HYDROCHLOROTHIAZIDE 12.5 MG CAPSULE PO SCH (08:08)
[2021-12-20] MEDS: MAGNESIUM OXIDE 400 MG TABLET PO SCH (08:08)
[2021-12-20] MEDS: METOPROLOL TARTRATE 50 MG TABLET PO SCH ×2 (08:08→21:00)
[2021-12-20] MEDS: CHLORHEXIDINE GLUCONATE 1 ML ORAL.SOL SSP SCH ×2 (08:08→21:01)
[2021-12-20] MEDS: FUROSEMIDE 40 MG TABLET PO SCH (08:08)
[2021-12-20] MEDS: HEPARIN 5,000 UNIT/ML VIAL SQ SCH (08:08)
[2021-12-20] MEDS: LISINOPRIL 20 MG TABLET PO SCH (08:09)
[2021-12-20] MEDS: CARBOXYMETHYLCELLULOSE SODIUM 1 EACH DROPER.GEL OU SCH ×3 (08:09→21:02)
[2021-12-20] MEDS: VITAMIN D3 125 MCG TABLET PO SCH (08:09)
[2021-12-20] MEDS: CYANOCOBALAMIN (VITAMIN B-12) 500 MCG TABLET PO SCH (08:09)
[2021-12-20] MEDS: cefTRIAXone 1 GM VIAL IV SCH (08:12)
[2021-12-20] MEDS: BARICITINIB 2 MG TABLET PO SCH (08:13)
--- NOTE | 2021-12-20 09:15 | Internal Med Progress Note ---
SUBJECTIVE Subjective Patient information: Note initiated : 12/20/21 at 9:14 am Service Date, if different from initiated Date: [] Patient: Jose Young a 61 y/o M admitted on 12/15/21 for Weak. Chief Complaint: [] Principal diagnosis: CoVID pneumonia, CHF exacerbation Interval history: Mr. Young is a 61 year old M history of congestive heart failure, chronic kidney disease stage III, morbid obesity, essential hypertension, mixed dyslipidemia, type 2 diabetes mellitus, presenting with 3 weeks history of shortness of breath, cough, fever, chills, and bilateral leg swellings. He ran out of his diuretics Lasix 3 weeks ago. Since then, he had gradually worsening shortness of breath, cough, fever, chills, and bilateral leg swellings. He is also complained of dyspnea on exertions with 20 feet. He is also committing of orthopnea to the point that he has to sleep on the chair. He denies any wheezing. He denies any unintentional weight gain. Patient is vaccinated against COVID-pneumonia. Of note, his son was recently being diagnosed with COVID-pneumonia. Labs significant for lack of leukocytosis with WBC 7.3. POC potassium level 2.9. Serum creatinine level 1.4 which is at around his baseline. Serum glucose level 224. Serum troponin level 0.20 followed by 0.19. Serum BNP 1420. Eunice negative. [place] pending. Chest x-ray showing severe infiltrates throughout both lungs which could be due to pulmonary edema or severe widespread bilateral pneumonia such as COVID-pneumonia. 12/16: Afebrile overnight. [place] positive. Blood cultures no growth to date. Sputum culture mixed becky. On BiPAP 15/7 FiO2 75%. c/o shortness of breath, improving. c/o productive cough with brown and green sputum. c/o wheezing. c/o chest pain when cough. c/o sweating. Denies any fever or chills. c/o mild anxiety. On Lasix IV, Dexamethasone, and Remdesivir. Add Bariticinib. 12/17: Afebrile overnight. Patient has been lying on his side. Blood cultures no growth to date. Sputum culture mixed becky. Troponin 0.11-->0.09. On BiPAP 15/7 FiO2 60%. c/o shortness of breath, improving. c/o productive cough with brown and green sputum. c/o wheezing. c/o chest pain when cough. c/o sweating. Denies any fever or chills. c/o mild anxiety. On Lasix IV, Dexamethasone, and Remdesivir. Add Bariticinib. 12/18: Afebrile overnight. Was on BiPAP overnight, been switched to high flow oxygen earlier in the morning with 35L/min, FiO2 65%. Did not tolerate proning. Sputum culture grew H influenzae. c/o shortness of breath, improving. c/o productive cough with green sputum. Denies wheezing. c/o chest pain when cough. Denies fever, chills, or sweating. On Baricitinib, Remdesivir, and Dexamethasone. Switch Lasix from IV to PO, resume HCTZ-Lisinopril from home regimen. All Rocephin as coverage for bacterial pneumonia. 12/19: Afebrile overnight. Blood glucose 53 this morning, normalized after orange juice given. Was on BiPAP overnight, been switched to high flow oxygen earlier in the morning with 40L/min, FiO2 65%. Did not tolerate proning. Sputum culture grew H influenzae. c/o shortness of breath, improving. c/o productive cough with green sputum. Denies wheezing. c/o chest pain when cough. Denies fever, chills, or sweating. On Baricitinib, Remdesivir, and Dexamethasone. Continue PO Lasix and HCTZ-Lisinopril from home regimen. Continue Rocephin as coverage for bacterial pneumonia. 12/20: Afebrile overnight. Blood glucose 77 this morning. Was on BiPAP overnight, been switched to high flow oxygen earlier in the morning with 35L/min, FiO2 80%. Did not tolerate proning. Sputum culture grew H influenzae. Improving degree of shortness of breath. c/o productive cough with green sputum. Denies wheezing. c/o chest pain when cough. Denies fever, chills, or sweating. On Baricitinib, Remdesivir, and Dexamethasone. Continue PO Lasix and HCTZ-Lisinopril from home regimen. Continue Rocephin as coverage for bacterial pneumonia. Pertinent ROS: Improving degree of shortness of breath. c/o productive cough with green sputum. Denies wheezing. c/o chest pain when cough. Denies fever, chills, or sweating. Constitutional Vitals: Vital Signs Temp Pulse Resp BP Pulse Ox 36.3 C 60 13 160/76 88 L 12/20/21 08:02 12/20/21 08:11 12/20/21 08:11 12/20/21 08:02 12/20/21 08:11 Period Temp Pulse Resp BP Sys/Beck Pulse Ox Last 24 Hr 36.0 C-36.8 C 44-77 9-28 125-198/57-76 88-97 Intake and Output 12/19/21 12/20/21 12/20/21 21:59 05:59 13:59 Intake Total 2009 350 Output Total 1500 0 550 Balance 510 350 -550 Weight 171.118 kg Intake & Output: Intake & Output 12/19/21 12/20/21 12/20/21 21:59 05:59 13:59 Intake Total 2009 350 Output Total 1500 0 550 Balance 510 350 -550 Weight 171.118 kg Intake: Nourishment/Supplement quantity 480 (ml) Oral 1530 350 Output: Urine Catheter Amount 50 Void Amount 1500 0 500 Other: Meal Lunch Percent of Meal Consumed 100% Feeding Ability Independent Nourishment/Supplement name [place] Urine Appearance Clear Clear Urine Color Dark Yellow Dark Yellow Urine Odor Normal Normal General appearance: cooperative, morbidly obese and no acute distress Head Head exam: Present atraumatic and normal inspection Eye Eye exam: Present normal appearance ENT ENT exam: Present mucous membranes moist, normal exam and normal external ear exam Additional comments: high flow oxygen in place Neck Neck exam: Present normal inspection Respiratory Respiratory exam: Present rhonchi; Absent wheezes Cardiovascular Cardiovascular exam: Present normal rate and rhythm GI/Abdominal GI/Abdominal exam: Present normal bowel sounds Back Exam Back exam: Present normal inspection Neurological Exam Neurological exam: Present alert and oriented X3 Skin Skin exam: Present intact and warm OBJ DATA Labs CBC & Chem 7: 12/20/21 05:26 12/20/21 05:26 Labs: Abnormal Lab Results 12/20/21 12/20/21 12/20/21 05:26 05:26 05:26 WBC 11.6 H RBC 3.71 L Hgb 11.2 L Hct 35.3 L Absolute Neutrophils 8.42 H Potassium Carbon Dioxide BUN 27 H Glucose Calcium Phosphorus 4.6 H Troponin T Albumin 2.8 L Albumin/Globulin Ratio 0.8 L 12/19/21 12/19/21 12/18/21 05:27 05:27 06:01 WBC RBC 3.60 L Hgb 11.0 L Hct 34.2 L Absolute Neutrophils Potassium 3.2 L Carbon Dioxide 33 H BUN 30 H 35 H Glucose 59 L Calcium 8.3 L 8.5 L Phosphorus Troponin T Albumin 2.9 L 3.1 L Albumin/Globulin Ratio 0.9 L 0.9 L 12/18/21 12/17/21 06:01 09:45 WBC RBC 3.62 L Hgb 11.0 L Hct 34.0 L Absolute Neutrophils Potassium Carbon Dioxide BUN Glucose Calcium Phosphorus Troponin T 0.12 H* Albumin Albumin/Globulin Ratio Meds: Medications Acetaminophen (Acetaminophen 325 Mg Tablet) 650 mg PO Q6HP PRN; Protocol PRN Reason: Per Pain Protocol/Fever > 101 Last Admin: 12/19/21 14:45 Dose: 650 mg Documented by: Albuterol/Ipratropium (Ipratropium/Albuterol 3 Ml Ampul.Neb) 3 ml NEB Q4HRT PRN PRN Reason: Wheezing Artificial Tears (Carboxymethylcellulose Sodium 1 Each Droper.Gel) 1 each OU TID [facility] Last Admin: 12/20/21 08:09 Dose: Not Given Documented by: Benzonatate (Benzonatate 100 Mg Capsule) 200 mg PO TIDP PRN PRN Reason: Cough Last Admin: 12/19/21 20:32 Dose: 200 mg Documented by: Ceftriaxone Sodium (Ceftriaxone 1 Gm Vial) 1 gm IV Q24H BARRY; Protocol Last Admin: 12/20/21 08:12 Dose: 1 gm Documented by: Chlorhexidine Gluconate (Chlorhexidine Gluconate 1 Ml Oral.Irene) 15 ml SSP BID [facility] Last Admin: 12/20/21 08:08 Dose: 15 ml Documented by: Cyanocobalamin (Cyanocobalamin (Vitamin B-12) 500 Mcg Tablet) 1,000 mcg PO DAILY [facility] Last Admin: 12/20/21 08:09 Dose: 1,000 mcg Documented by: Dexamethasone (Dexamethasone 10 Mg/Ml Vial) 6 mg IV DAILY [facility] Last Admin: 12/20/21 08:07 Dose: 6 mg Documented by: Dextrose (Dextrose 50% 50 Ml Vial) 0 ml IV UD PRN PRN Reason: Hypoglycemia Diagnostic Test (Pha) (Accu-Chek 1 Each Strip) 1 each FS ACHS [facility] Last Admin: 12/20/21 07:34 Dose: 1 each Documented by: Docusate Sodium (Docusate Sodium 100 Mg Capsule) 100 mg PO BID [facility] Last Admin: 12/20/21 08:07 Dose: 100 mg Documented by: Furosemide (Furosemide 40 Mg Tablet) 80 mg PO QAM [facility] Last Admin: 12/20/21 08:08 Dose: 80 mg Documented by: Gabapentin (Gabapentin 300 Mg Capsule) 300 mg PO TIDP PRN PRN Reason: pain Last Admin: 12/19/21 20:32 Dose: 300 mg Documented by: Glucose (Dextrose 31 Gm Oral.Susp) 15 gm PO PRN PRN PRN Reason: Hypoglycemia Heparin Sodium (Porcine) (Heparin 5,000 Unit/Ml Vial) 5,000 unit SQ Q12 [facility] Last Admin: 12/20/21 08:08 Dose: 5,000 unit Documented by: Hydrochlorothiazide (Hydrochlorothiazide 12.5 Mg Capsule) 12.5 mg PO DAILY [facility] Last Admin: 12/20/21 08:08 Dose: 12.5 mg Documented by: Potassium Chloride 20 meq/ (Dextrose) 260 mls @ 130 mls/hr IV DAILYP PRN PRN Reason: POTASSIUM LEVEL 2.5-2.9. Insulin Glargine (Insulin Glargine, Human 1 Unit/0.01 Ml) 58 unit SQ [facility] Last Admin: 12/19/21 20:33 Dose: 58 unit Documented by: Insulin Human Lispro (Insulin Lispro 1 Unit/0.01 Ml Unit) 40 unit SQ TIDAC [facility] Last Admin: 12/19/21 17:25 Dose: 40 units Documented by: Insulin Human Lispro (Insulin Lispro 1 Unit/0.01 Ml Unit) 0 unit SQ [facility]; Protocol Last Admin: 12/20/21 08:07 Dose: Not Given Documented by: Lactulose (Lactulose 20 Gm/30 Ml Oral.Irene) 10 gm PO DAILYP PRN PRN Reason: Constipation Lisinopril (Lisinopril 20 Mg Tablet) 20 mg PO DAILY [facility] Last Admin: 12/20/21 08:09 Dose: 20 mg Documented by: Loperamide HCl (Loperamide 2 Mg Capsule) 2 mg PO PRN PRN PRN Reason: Diarrhea Lorazepam (Lorazepam 1 Mg Tablet) 1 mg PO Q6HP PRN PRN Reason: ANXIETY/SEDATION Last Admin: 12/19/21 20:32 Dose: 1 mg Documented by: Magnesium Oxide (Magnesium Oxide 400 Mg Tablet) 400 mg PO DAILY [facility] Last Admin: 12/20/21 08:08 Dose: 400 mg Documented by: Methocarbamol (Methocarbamol 750 Mg Tablet) 750 mg PO BIDP PRN PRN Reason: Spasms Last Admin: 12/17/21 09:38 Dose: 750 mg Documented by: Metoprolol Tartrate (Metoprolol Tartrate 50 Mg Tablet) 50 mg PO BID [facility] Last Admin: 12/20/21 08:08 Dose: 50 mg Documented by: Ondansetron HCl (Ondansetron 4 Mg/2 Ml Vial) 4 mg IV Q4HP PRN; Protocol PRN Reason: Nausea And Vomiting Pantoprazole Sodium (Pantoprazole 40 Mg Vial) 40 mg IV QAMAC [facility] Last Admin: 12/20/21 08:07 Dose: 40 mg Documented by: Potassium Chloride (Potassium Chloride 20 Meq Tablet) 20 meq PO DAILYP PRN PRN Reason: K LEVEL 3.0-3.4 Last Admin: 12/19/21 09:13 Dose: 20 meq Documented by: Senna (Sennosides 1 Tablet) 2 tab PO HSP PRN PRN Reason: Constipation Simvastatin (Simvastatin 40 Mg Tablet) 40 mg PO QHS [facility] Last Admin: 12/19/21 20:32 Dose: 40 mg Documented by: Sodium Chloride (0.9 % Sodium Chloride 10 Ml Syringe) 10 ml IV Q8 [facility] Last Admin: 12/20/21 05:09 Dose: 10 ml Documented by: Sodium Chloride (Sodium Chloride Nasal 1 [place] Bottle) 2 spray YANI Q4HP PRN PRN Reason: Congestion Last Admin: 12/18/21 09:55 Dose: 2 spray Documented by: Vitamin D (Vitamin D3 125 Mcg Tablet) 125 mcg PO DAILY [facility] Last Admin: 12/20/21 08:09 Dose: 125 mcg Documented by: A/P Assessment and plan (1) Acute respiratory failure with hypoxia: Status: Acute (2) Anemia due to stage 3a chronic kidney disease: Status: Chronic (3) Chronic kidney disease (CKD) stage G3a/A1, moderately decreased glomerular filtration rate (GFR) between 45-59 mL/min/1.73 square meter and albuminuria creatinine ratio less than 30 mg/g: Status: Chronic (4) Hypertension in stage 3 chronic kidney disease due to type 2 diabetes mellitus: Status: Chronic (5) Diabetes mellitus treated with insulin and oral medication: Status: Chronic (6) Hyperlipidemia: Status: Chronic (7) CHF exacerbation: Status: Acute (8) Morbid obesity: Status: Chronic (9) Hypokalemia: Status: Acute (10) Pneumonia due to COVID-19 virus: Status: Acute (11) Troponin level elevated: Status: Acute Narrative A/P Narrative: Assessment and Plans: 1. Acute respiratory failure with hypoxia: DDx: CHF with exacerbation, CoVID pneumonia Stays in inpatient PCU with telemetry [place] negative, [place] positive Supplemental oxygen therapy, titrate to achieve spo2>=92%, currently at high flow oxygen 35L/min FiO2 80%. Stays with high flow oxygen during the day as long as possible and back to BiPAP at night while sleeping Serial lactic acid Inflammatory markers ABG cbc w/ auto diff in the morning to trend WBC 2D echocardiogram, showing mildly reduced systolic function with LVEF 50-55% Strict intake and output Daily weigh 2L/day fluid restriction Lasix 80mg PO daily Metoprolol tartrate HCTZ-Lisinopril Proning 16hours/day as tolerated Isolations: airborne and contact Dexamethasone Remdesivir Baricitinib Tylenol PRN fever Robitussin DM PRN cough DuoNEB NEB wheezing Ativan PO PRN anxiety Sputum culture grew H influenzae, will start Rocephin as coverage for bacterial pneumonia 2. T2DM with diabetic neuropathy: HgA1c 7.9 Hold oral hypoglycemics Lantus 50 unit HS to avoid hypoglycemia Aspart 40 unit TID [employer] insulin AC HS Accu Chek AC HS Hypoglycemia protocol Diabetic diet Gabapentin PRN neuropathic pain 3. Essential HTN: Lasix 80mg PO daily Metoprolol tartrate HCTZ-Lisinopril 4. Mixed dyslipidemia: Continue statin therapy 5. Morbid obesity: [employer] patient on life style modifications including regular exercise and regular diet in order to lose weight 6. Anemia in chronic kidney disease stage 3: Avoid nephrotoxic agents Saline lock CMP daily to trend kidney functions cbc w/ auto diff in the morning to trend H/H 7. Hypokalemia: RESOLVED PO/IV potassium replacement CMP in the morning to trend serum potassium level, repeat replacement as needed Also check serum Mg level and replace as needed 8. Elevated serum troponin level: Likely due to increased caardiac load from respiratory distress/failure Serial serum troponin level, 0.11-->0.09-->0.12 GI ppx: IV Protonix DVT ppx: Heparin Code status: Full Prognosis: extremely guarded Disposition: inpatient PCU telemetry Time Spent With Patient Time: Total time spent is greater than 50% in coordination of care (as documented) at patient's floor/unit and/or counseling patient: Total time spent with greater than 50% in coordination of care (as documented) at patient's floor/unit and/or counseling patient:: Greater than 35 minutes
[2021-12-20] MEDS: REMDESIVIR 100 MG in 0.9 % SODIUM CHLORIDE 250 ML IV SCH (12:05)
--- NOTE | 2021-12-20 14:24 | Internal Med Progress Note ---
SUBJECTIVE Subjective Patient information: Note initiated : 12/21/21 at 2:16 pm Service Date, if different from initiated Date: [] Patient: Jose Young a 61 y/o M admitted on 12/15/21 for Weak. Chief Complaint: [] Principal diagnosis: CoVID pneumonia, CHF exacerbation Interval history: Mr. Young is a 61 year old M history of congestive heart failure, chronic kidney disease stage III, morbid obesity, essential hypertension, mixed dyslipidemia, type 2 diabetes mellitus, presenting with 3 weeks history of shortness of breath, cough, fever, chills, and bilateral leg swellings. He ran out of his diuretics Lasix 3 weeks ago. Since then, he had gradually worsening shortness of breath, cough, fever, chills, and bilateral leg swellings. He is also complained of dyspnea on exertions with 20 feet. He is also committing of orthopnea to the point that he has to sleep on the chair. He denies any wheezing. He denies any unintentional weight gain. Patient is vaccinated against COVID-pneumonia. Of note, his son was recently being diagnosed with COVID-pneumonia. Labs significant for lack of leukocytosis with WBC 7.3. POC potassium level 2.9. Serum creatinine level 1.4 which is at around his baseline. Serum glucose level 224. Serum troponin level 0.20 followed by 0.19. Serum BNP 1420. Eunice negative. Midway pending. Chest x-ray showing severe infiltrates throughout both lungs which could be due to pulmonary edema or severe widespread bilateral pneumonia such as COVID-pneumonia. 12/16: Afebrile overnight. Midway positive. Blood cultures no growth to date. Sputum culture mixed becky. On BiPAP 15/7 FiO2 75%. c/o shortness of breath, improving. c/o productive cough with brown and green sputum. c/o wheezing. c/o chest pain when cough. c/o sweating. Denies any fever or chills. c/o mild anxiety. On Lasix IV, Dexamethasone, and Remdesivir. Add Bariticinib. 12/17: Afebrile overnight. Patient has been lying on his side. Blood cultures no growth to date. Sputum culture mixed becky. Troponin 0.11-->0.09. On BiPAP 15/7 FiO2 60%. c/o shortness of breath, improving. c/o productive cough with brown and green sputum. c/o wheezing. c/o chest pain when cough. c/o sweating. Denies any fever or chills. c/o mild anxiety. On Lasix IV, Dexamethasone, and Remdesivir. Add Bariticinib. 12/18: Afebrile overnight. Was on BiPAP overnight, been switched to high flow oxygen earlier in the morning with 35L/min, FiO2 65%. Did not tolerate proning. Sputum culture grew H influenzae. c/o shortness of breath, improving. c/o productive cough with green sputum. Denies wheezing. c/o chest pain when cough. Denies fever, chills, or sweating. On Baricitinib, Remdesivir, and Dexamethasone. Switch Lasix from IV to PO, resume HCTZ-Lisinopril from home regimen. All Rocephin as coverage for bacterial pneumonia. 12/19: Afebrile overnight. Blood glucose 53 this morning, normalized after orange juice given. Was on BiPAP overnight, been switched to high flow oxygen earlier in the morning with 40L/min, FiO2 65%. Did not tolerate proning. Sputum culture grew H influenzae. c/o shortness of breath, improving. c/o productive cough with green sputum. Denies wheezing. c/o chest pain when cough. Denies fever, chills, or sweating. On Baricitinib, Remdesivir, and Dexamethasone. Continue PO Lasix and HCTZ-Lisinopril from home regimen. Continue Rocephin as coverage for bacterial pneumonia. 12/20: Afebrile overnight. Blood glucose 77 this morning. Was on BiPAP overnight, been switched to high flow oxygen earlier in the morning with 35L/min, FiO2 80%. Did not tolerate proning. Sputum culture grew H influenzae. Improving degree of shortness of breath. c/o productive cough with green sputum. Denies wheezing. c/o chest pain when cough. Denies fever, chills, or sweating. On Baricitinib, Remdesivir, and Dexamethasone. Continue PO Lasix and HCTZ-Lisinopril from home regimen. Continue Rocephin as coverage for bacterial pneumonia. 12/20: Hypoglycemia this morning, decreased Lantus to 40 units HS. FiO2 55% at 35L/min today. Lasix 40 mg IV BID started for increasing lower extremity pedal edema, holding home lasix. Decreased doses of home lopressor and lisinopril, holding home hydrochlorothiazide. Physical exam Head: Atraumatic, normal inspection. Eyes: normal appearance, no scleral icterus. Neck: full ROM Respiratory: no respiratory distress. Cardiovascular: normal rate and rhythm, S1, S2. GI/Abdominal: soft, nontender, no guarding. Extremities: full range of motion, nontender, lower extremity pitting edema. Neurological: CN II-XII intact, intact motor, intact sensation. Psychiatric: normal mood. Skin: warm, normal color Constitutional Vitals: Vital Signs Temp Pulse Resp BP Pulse Ox 96.7 F L 61 26 H 133/67 94 12/20/21 12:01 12/20/21 14:08 12/20/21 14:11 12/20/21 14:08 12/20/21 14:08 Period Temp Pulse Resp BP Sys/Beck Pulse Ox Last 24 Hr 96.7 F-97.6 F 44-77 9-28 112-198/57-76 88-97 Intake and Output 12/20/21 12/20/21 12/20/21 05:59 13:59 21:59 Intake Total 350 970 Output Total 0 1150 475 Balance 350 -180 -475 Weight 171.118 kg Patient Weight 12/21/21 05:59 Weight 171.118 kg Intake & Output: Intake & Output 12/20/21 12/20/21 12/20/21 05:59 13:59 21:59 Intake Total 350 970 Output Total 0 1150 475 Balance 350 -180 -475 Weight 171.118 kg Intake: Nourishment/Supplement quantity 240 (ml) IV 250 Veklury 100 mg In Sodium 250 Chloride 0.9% 250 ml @ 500 mls/ hr IV Q24H [facility] Rx#:[id number] Oral 350 480 Output: Urine Catheter Amount 50 Void Amount 0 1100 475 Other: Meal Breakfast Percent of Meal Consumed 100% Nourishment/Supplement name Ensure Urine Appearance Clear Clear Urine Color Bright Yellow Bright Yellow Urine Odor Normal Normal Stool Size Moderate Stool Color Brown Stool Consistency Loose OBJ DATA Labs CBC & Chem 7: 12/21/21 05:20 12/21/21 05:21 Labs: Abnormal Lab Results 12/20/21 12/20/21 12/20/21 05:26 05:26 05:26 WBC 11.6 H RBC 3.71 L Hgb 11.2 L Hct 35.3 L Absolute Neutrophils 8.42 H Potassium Carbon Dioxide BUN 27 H Glucose Calcium Phosphorus 4.6 H Albumin 2.8 L Albumin/Globulin Ratio 0.8 L 12/19/21 12/19/21 12/18/21 05:27 05:27 06:01 WBC RBC 3.60 L Hgb 11.0 L Hct 34.2 L Absolute Neutrophils Potassium 3.2 L Carbon Dioxide 33 H BUN 30 H 35 H Glucose 59 L Calcium 8.3 L 8.5 L Phosphorus Albumin 2.9 L 3.1 L Albumin/Globulin Ratio 0.9 L 0.9 L 12/18/21 06:01 WBC RBC 3.62 L Hgb 11.0 L Hct 34.0 L Absolute Neutrophils Potassium Carbon Dioxide BUN Glucose Calcium Phosphorus Albumin Albumin/Globulin Ratio Meds: Medications Acetaminophen (Acetaminophen 325 Mg Tablet) 650 mg PO Q6HP PRN; Protocol PRN Reason: Per Pain Protocol/Fever > 101 Last Admin: 12/19/21 14:45 Dose: 650 mg Documented by: Albuterol/Ipratropium (Ipratropium/Albuterol 3 Ml Ampul.Neb) 3 ml NEB Q4HRT PRN PRN Reason: Wheezing Artificial Tears (Carboxymethylcellulose Sodium 1 Each Droper.Gel) 1 each OU TID [facility] Last Admin: 12/20/21 14:09 Dose: Not Given Documented by: Benzonatate (Benzonatate 100 Mg Capsule) 200 mg PO TIDP PRN PRN Reason: Cough Last Admin: 12/19/21 20:32 Dose: 200 mg Documented by: Ceftriaxone Sodium (Ceftriaxone 1 Gm Vial) 1 gm IV Q24H [facility]; Protocol Last Admin: 12/20/21 08:12 Dose: 1 gm Documented by: Chlorhexidine Gluconate (Chlorhexidine Gluconate 1 Ml Oral.Irene) 15 ml SSP BID [facility] Last Admin: 12/20/21 08:08 Dose: 15 ml Documented by: Cyanocobalamin (Cyanocobalamin (Vitamin B-12) 500 Mcg Tablet) 1,000 mcg PO DAILY [facility] Last Admin: 12/20/21 08:09 Dose: 1,000 mcg Documented by: Dexamethasone (Dexamethasone 10 Mg/Ml Vial) 6 mg IV DAILY [facility] Last Admin: 12/20/21 08:07 Dose: 6 mg Documented by: Dextrose (Dextrose 50% 50 Ml Vial) 0 ml IV UD PRN PRN Reason: Hypoglycemia Diagnostic Test (Pha) (Accu-Chek 1 Each Strip) 1 each FS ACHS [facility] Last Admin: 12/20/21 09:37 Dose: 1 each Documented by: Docusate Sodium (Docusate Sodium 100 Mg Capsule) 100 mg PO BID [facility] Last Admin: 12/20/21 08:07 Dose: 100 mg Documented by: Furosemide (Furosemide 40 Mg Tablet) 80 mg PO QAM [facility] Last Admin: 12/20/21 08:08 Dose: 80 mg Documented by: Gabapentin (Gabapentin 300 Mg Capsule) 300 mg PO TIDP PRN PRN Reason: pain Last Admin: 12/19/21 20:32 Dose: 300 mg Documented by: Glucose (Dextrose 31 Gm Oral.Susp) 15 gm PO PRN PRN PRN Reason: Hypoglycemia Heparin Sodium (Porcine) (Heparin 5,000 Unit/Ml Vial) 5,000 unit SQ Q12 [facility] Last Admin: 12/20/21 08:08 Dose: 5,000 unit Documented by: Hydrochlorothiazide (Hydrochlorothiazide 12.5 Mg Capsule) 12.5 mg PO DAILY [facility] Last Admin: 12/20/21 08:08 Dose: 12.5 mg Documented by: Potassium Chloride 20 meq/ (Dextrose) 260 mls @ 130 mls/hr IV DAILYP PRN PRN Reason: POTASSIUM LEVEL 2.5-2.9. REMDESIVIR 100 mg/ Sodium (Chloride) 250 mls @ 500 mls/hr IV Q24H [facility] Stop: 12/24/21 11:29 Last Infusion: 12/20/21 12:33 Dose: Infused Documented by: Insulin Glargine (Insulin Glargine, Human 1 Unit/0.01 Ml) 50 unit SQ HS [facility] Insulin Human Lispro (Insulin Lispro 1 Unit/0.01 Ml Unit) 40 unit SQ TIDAC [facility] Last Admin: 12/20/21 12:06 Dose: Not Given Documented by: Insulin Human Lispro (Insulin Lispro 1 Unit/0.01 Ml Unit) 0 unit SQ [facility]; Protocol Last Admin: 12/20/21 12:06 Dose: 6 unit Documented by: Lactulose (Lactulose 20 Gm/30 Ml Oral.Irene) 10 gm PO DAILYP PRN PRN Reason: Constipation Lisinopril (Lisinopril 20 Mg Tablet) 20 mg PO DAILY [facility] Last Admin: 12/20/21 08:09 Dose: 20 mg Documented by: Loperamide HCl (Loperamide 2 Mg Capsule) 2 mg PO PRN PRN PRN Reason: Diarrhea Lorazepam (Lorazepam 1 Mg Tablet) 1 mg PO Q6HP PRN PRN Reason: ANXIETY/SEDATION Last Admin: 12/19/21 20:32 Dose: 1 mg Documented by: Magnesium Oxide (Magnesium Oxide 400 Mg Tablet) 400 mg PO DAILY [facility] Last Admin: 12/20/21 08:08 Dose: 400 mg Documented by: Methocarbamol (Methocarbamol 750 Mg Tablet) 750 mg PO BIDP PRN PRN Reason: Spasms Last Admin: 12/17/21 09:38 Dose: 750 mg Documented by: Metoprolol Tartrate (Metoprolol Tartrate 50 Mg Tablet) 50 mg PO BID [facility] Last Admin: 12/20/21 08:08 Dose: 50 mg Documented by: Ondansetron HCl (Ondansetron 4 Mg/2 Ml Vial) 4 mg IV Q4HP PRN; Protocol PRN Reason: Nausea And Vomiting Pantoprazole Sodium (Pantoprazole 40 Mg Vial) [facility] Last Admin: 12/20/21 08:07 Dose: 40 mg Documented by: Potassium Chloride (Potassium Chloride 20 Meq Tablet) 20 meq PO DAILYP PRN PRN Reason: K LEVEL 3.0-3.4 Last Admin: 12/19/21 09:13 Dose: 20 meq Documented by: Senna (Sennosides 1 Tablet) 2 tab PO HSP PRN PRN Reason: Constipation Simvastatin (Simvastatin 40 Mg Tablet) 40 mg PO QHS [facility] Last Admin: 12/19/21 20:32 Dose: 40 mg Documented by: Sodium Chloride (0.9 % Sodium Chloride 10 Ml Syringe) 10 ml IV Q8 [facility] Last Admin: 12/20/21 13:30 Dose: 10 ml Documented by: Sodium Chloride (Sodium Chloride Nasal 1 [place] Bottle) 2 spray YANI Q4HP PRN PRN Reason: Congestion Last Admin: 12/18/21 09:55 Dose: 2 spray Documented by: Vitamin D (Vitamin D3 125 Mcg Tablet) 125 mcg PO DAILY [facility] Last Admin: 12/20/21 08:09 Dose: 125 mcg Documented by: A/P Narrative A/P Narrative: Assessment: 61-year-old male with a history of hypertension, dyslipidemia, type 2 diabetes mellitus, chronic kidney disease stage III, congestive heart failure, obesity admitted for acute hypoxic respiratory failure secondary to acute on severe Covid pneumonia complicated by acute on chronic congestive heart failure. #Acute hypoxic respiratory failure #Severe COVID pneumonia/ARDS #Chronic diastolic heart failure #Type 2 diabetes mellitus c/b neuropathy #Chronic kidney disease stage III #Essential hypertension #Dyslipidemia #Obesity BMI 48 #Elevated risk for sleep apnea Plan -Severe Covid treatments: Dexamethasone, remdesivir, baricitinib. -Oxygen supplementation, wean as able -Empiric ceftriaxone IV. -Lasix 40 mg IV BID x3, holding home lasix. -Monitor volume status. -Lantus at bedtime, prandial NovoLog and SSI. -Continue reduced dose lisinopril and Lopressor, continue home simvastatin. -Holding home Metformin, semaglutide, hydrochlorothiazide. -Prone position as tolerated. -DVT prophylaxis: Lovenox SQ twice daily for BMI greater than 40. -CODE STATUS: Full -Disposition:TBD Time Spent With Patient Time: Total time spent is greater than 50% in coordination of care (as documented) at patient's floor/unit and/or counseling patient:
[2021-12-20] MEDS: ENOXAPARIN 40 MG/0.4 ML SYRINGE SQ SCH (21:00)
[2021-12-20] MEDS ORDERED: INSULIN GLARGINE, HUMAN 1 UNIT/0.01 ML SQ SCH (21:00)
[2021-12-20] MEDS: GABAPENTIN 300 MG CAPSULE PO PRN (21:00)
[2021-12-20] MEDS: LORazepam 1 MG TABLET PO PRN (21:00)
[2021-12-20] MEDS: BENZONATATE 100 MG CAPSULE PO PRN (21:00)
[2021-12-20] MEDS: SIMVASTATIN 40 MG TABLET PO SCH (21:00)
[2021-12-21] MEDS: 0.9 % SODIUM CHLORIDE 10 ML SYRINGE IV SCH ×4 (05:46→20:58)
[2021-12-21 07:03] LABS: Basophils # (Auto) 0.04 K/mcL (0.00-0.30); Basophils % (Auto) 0.3 % (0.0-2.0); Eosinophils # (Auto) 0.31 K/mcL (0.00-0.70); Eosinophils % (Auto) 2.5 % (0.0-7.0); Hematocrit 35.2 % (40.1-51.0); Hemoglobin 11.5 g/dL (13.7-17.5); Lymphocytes # (Auto) 2.39 K/mcL (1.50-4.80); Lymphocytes % (Auto) 18.9 % (15.5-49.0); Mean Cell Volume 94.1 fL (80.0-100.0); Mean Corpuscular HGB Conc 32.7 g/dL (31.0-36.0); Mean Platelet Volume 9.5 fL (7.4-10.4); Monocytes # (Auto) 0.73 K/mcL (0.10-0.90); Monocytes % (Auto) 5.8 % (1.0-12.0); Neutrophils % (Auto) 72.5 % (38.0-78.0); Platelet Count 366 K/mcL (140-440); RBC 3.74 M/mcL (4.63-6.08); Red Cell Distribution Width 14.2 % (11.5-14.5); WBC 12.6 K/mcL (4.5-11.0)
[2021-12-21] MEDS: PANTOPRAZOLE 40 MG VIAL IV SCH (07:27)
[2021-12-21 07:31] LABS: ALT/SGPT 23 U/L (<40); AST/SGOT 24 U/L (<40); Albumin 2.9 gm/dL (3.2-5.2); Albumin/Globulin Ratio 0.8 (1.0-2.3); Alkaline Phosphatase 46 U/L (39-117); Bilirubin,Direct < 0.2 mg/dL (0-0.3); Bilirubin,Total 0.3 mg/dL (0.1-1.0); Blood Urea Nitrogen 27 mg/dL (8-23); Calcium 8.7 mg/dL (8.6-10.4); Carbon Dioxide 28 mmol/L (22-30); Chloride 100 mmol/L (96-108); Globulin 3.5 gm/dL (2.2-3.7); Glomerular Filtration Rate 81; Glucose 76 mg/dL (70-105); Lactate Dehydrogenase 460 U/L (135-225); Phosphorous 4.1 mg/dL (2.5-4.5); Triglycerides 64 mg/dL (<150); Uric Acid 6.9 mg/dL (2.5-8.0)
[2021-12-21] MEDS: INSULIN LISPRO 1 UNIT/0.01 ML UNIT SQ SCH ×7 (08:33→20:45)
[2021-12-21] MEDS: DOCUSATE SODIUM 100 MG CAPSULE PO SCH ×2 (08:33→20:59)
--- NOTE | 2021-12-21 09:04 | XRay Report ---
CLINICAL INFORMATION: Follow up: Pneumonia COMPARISON: Portable chest 12/15/2021 TECHNIQUE: Portable FINDINGS: The heart size, mediastinum and pulmonary vessels are unremarkable. Large alveolar infiltrates throughout both lungs show improved aeration particularly in the right mid and lower lung. There are no effusions. The bones and soft tissues are within normal limits. IMPRESSION: Diffuse bilateral pulmonary infiltrates. Moderate improvement particularly in the right mid/lower lung since the comparison exam less than one week ago Interpreted and Authenticated by: Jacob Maloney 12/21/21
[2021-12-21] MEDS: CARBOXYMETHYLCELLULOSE SODIUM 1 EACH DROPER.GEL OU SCH ×4 (09:42→20:59)
[2021-12-21] MEDS: DEXAMETHASONE 10 MG/ML VIAL IV SCH (10:22)
[2021-12-21] MEDS: BARICITINIB 2 MG TABLET PO SCH (10:22)
[2021-12-21] MEDS: ENOXAPARIN 40 MG/0.4 ML SYRINGE SQ SCH ×2 (10:22→20:59)
[2021-12-21] MEDS: cefTRIAXone 1 GM VIAL IV SCH (10:22)
[2021-12-21] MEDS: CHLORHEXIDINE GLUCONATE 1 ML ORAL.SOL SSP SCH ×2 (10:23→21:01)
[2021-12-21] MEDS: GABAPENTIN 300 MG CAPSULE PO PRN (10:23)
[2021-12-21] MEDS: FUROSEMIDE 40 MG TABLET PO SCH (10:23)
[2021-12-21] MEDS: VITAMIN D3 125 MCG TABLET PO SCH (10:23)
[2021-12-21] MEDS: MAGNESIUM OXIDE 400 MG TABLET PO SCH (10:24)
[2021-12-21] MEDS: CYANOCOBALAMIN (VITAMIN B-12) 500 MCG TABLET PO SCH (10:24)
[2021-12-21] MEDS: HYDROCHLOROTHIAZIDE 12.5 MG CAPSULE PO SCH (10:24)
[2021-12-21] MEDS: BENZONATATE 100 MG CAPSULE PO PRN (10:24)
[2021-12-21] MEDS: REMDESIVIR 100 MG in 0.9 % SODIUM CHLORIDE 250 ML IV SCH (11:53)
[2021-12-21] MEDS: LISINOPRIL 5 MG TABLET PO SCH (11:53)
[2021-12-21] MEDS: METOPROLOL TARTRATE 25 MG TABLET PO SCH ×2 (11:53→20:59)
[2021-12-21] MEDS: LISINOPRIL 20 MG TABLET PO SCH (12:54)
[2021-12-21] MEDS: METOPROLOL TARTRATE 50 MG TABLET PO SCH (12:54)
[2021-12-21] MEDS: FUROSEMIDE 40 MG/4 ML VIAL IV SCH (15:59)
[2021-12-21] MEDS: LORazepam 1 MG TABLET PO PRN (20:59)
[2021-12-21] MEDS: SIMVASTATIN 40 MG TABLET PO SCH (20:59)
[2021-12-21] MEDS: INSULIN GLARGINE, HUMAN 1 UNIT/0.01 ML SQ SCH (21:00)
[2021-12-22] MEDS: 0.9 % SODIUM CHLORIDE 10 ML SYRINGE IV SCH ×5 (06:54→20:53)
[2021-12-22 07:21] LABS: Basophils # (Auto) 0.04 K/mcL (0.00-0.30); Basophils % (Auto) 0.4 % (0.0-2.0); Eosinophils # (Auto) 0.14 K/mcL (0.00-0.70); Eosinophils % (Auto) 1.3 % (0.0-7.0); Hematocrit 33.5 % (40.1-51.0); Hemoglobin 10.8 g/dL (13.7-17.5); Lymphocytes # (Auto) 1.85 K/mcL (1.50-4.80); Lymphocytes % (Auto) 17.1 % (15.5-49.0); Mean Cell Volume 93.3 fL (80.0-100.0); Mean Corpuscular HGB Conc 32.2 g/dL (31.0-36.0); Mean Platelet Volume 10.1 fL (7.4-10.4); Monocytes # (Auto) 0.82 K/mcL (0.10-0.90); Monocytes % (Auto) 7.6 % (1.0-12.0); Neutrophils % (Auto) 73.6 % (38.0-78.0); Platelet Count 370 K/mcL (140-440); RBC 3.59 M/mcL (4.63-6.08); Red Cell Distribution Width 14.4 % (11.5-14.5); WBC 10.8 K/mcL (4.5-11.0)
[2021-12-22] MEDS: INSULIN LISPRO 1 UNIT/0.01 ML UNIT SQ SCH ×7 (07:25→20:40)
[2021-12-22] MEDS: FUROSEMIDE 40 MG/4 ML VIAL IV SCH ×2 (07:25→16:34)
[2021-12-22] MEDS: PANTOPRAZOLE 40 MG VIAL IV SCH (07:25)
[2021-12-22] MEDS: DOCUSATE SODIUM 100 MG CAPSULE PO SCH ×2 (07:27→20:49)
[2021-12-22] MEDS: METOPROLOL TARTRATE 25 MG TABLET PO SCH ×2 (07:33→20:51)
[2021-12-22] MEDS: LISINOPRIL 5 MG TABLET PO SCH ×2 (07:34→12:11)
[2021-12-22 07:59] LABS: ALT/SGPT 25 U/L (<40); AST/SGOT 25 U/L (<40); Albumin/Globulin Ratio 0.9 (1.0-2.3); Alkaline Phosphatase 43 U/L (39-117); Bilirubin,Direct < 0.2 mg/dL (0-0.3); Bilirubin,Total 0.3 mg/dL (0.1-1.0); Blood Urea Nitrogen 26 mg/dL (8-23); Calcium 8.9 mg/dL (8.6-10.4); Carbon Dioxide 32 mmol/L (22-30); Chloride 97 mmol/L (96-108); Globulin 3.3 gm/dL (2.2-3.7); Glomerular Filtration Rate 72; Glucose 119 mg/dL (70-105); Lactate Dehydrogenase 445 U/L (135-225); Phosphorous 4.3 mg/dL (2.5-4.5); Triglycerides 49 mg/dL (<150); Uric Acid 6.8 mg/dL (2.5-8.0)
[2021-12-22] MEDS: VITAMIN D3 125 MCG TABLET PO SCH (08:16)
[2021-12-22] MEDS: GABAPENTIN 300 MG CAPSULE PO PRN (08:16)
[2021-12-22] MEDS: CYANOCOBALAMIN (VITAMIN B-12) 500 MCG TABLET PO SCH (08:17)
[2021-12-22] MEDS: BARICITINIB 2 MG TABLET PO SCH (08:18)
[2021-12-22] MEDS: ENOXAPARIN 40 MG/0.4 ML SYRINGE SQ SCH ×2 (08:19→20:51)
[2021-12-22] MEDS: cefTRIAXone 1 GM VIAL IV SCH (08:19)
[2021-12-22] MEDS: DEXAMETHASONE 10 MG/ML VIAL IV SCH (08:19)
[2021-12-22] MEDS: CHLORHEXIDINE GLUCONATE 1 ML ORAL.SOL SSP SCH ×2 (08:19→20:50)
[2021-12-22] MEDS: CARBOXYMETHYLCELLULOSE SODIUM 1 EACH DROPER.GEL OU SCH ×3 (08:19→20:49)
[2021-12-22] MEDS: MAGNESIUM OXIDE 400 MG TABLET PO SCH (08:20)
[2021-12-22] MEDS: REMDESIVIR 100 MG in 0.9 % SODIUM CHLORIDE 250 ML IV SCH (10:55)
--- NOTE | 2021-12-22 15:44 | Internal Med Progress Note ---
SUBJECTIVE Subjective Patient information: Note initiated : 12/22/21 at 3:42 pm Service Date, if different from initiated Date: [] Patient: Jose Young a 61 y/o M admitted on 12/15/21 for Weak. Chief Complaint: [] Principal diagnosis: CoVID pneumonia, CHF exacerbation Interval history: Mr. Young is a 61 year old M history of congestive heart failure, chronic kidney disease stage III, morbid obesity, essential hypertension, mixed dyslipidemia, type 2 diabetes mellitus, presenting with 3 weeks history of shortness of breath, cough, fever, chills, and bilateral leg swellings. He ran out of his diuretics Lasix 3 weeks ago. Since then, he had gradually worsening shortness of breath, cough, fever, chills, and bilateral leg swellings. He is also complained of dyspnea on exertions with 20 feet. He is also committing of orthopnea to the point that he has to sleep on the chair. He denies any wheezing. He denies any unintentional weight gain. Patient is vaccinated against COVID-pneumonia. Of note, his son was recently being diagnosed with COVID-pneumonia. Labs significant for lack of leukocytosis with WBC 7.3. POC potassium level 2.9. Serum creatinine level 1.4 which is at around his baseline. Serum glucose level 224. Serum troponin level 0.20 followed by 0.19. Serum BNP 1420. [place] negative. [place] pending. Chest x-ray showing severe infiltrates throughout both lungs which could be due to pulmonary edema or severe widespread bilateral pneumonia such as COVID-pneumonia. 12/16: Afebrile overnight. [place] positive. Blood cultures no growth to date. Sputum culture mixed becky. On BiPAP 15/7 FiO2 75%. c/o shortness of breath, improving. c/o productive cough with brown and green sputum. c/o wheezing. c/o chest pain when cough. c/o sweating. Denies any fever or chills. c/o mild anxiety. On Lasix IV, Dexamethasone, and Remdesivir. Add Bariticinib. 12/17: Afebrile overnight. Patient has been lying on his side. Blood cultures no growth to date. Sputum culture mixed becky. Troponin 0.11-->0.09. On BiPAP 15/7 FiO2 60%. c/o shortness of breath, improving. c/o productive cough with brown and green sputum. c/o wheezing. c/o chest pain when cough. c/o sweating. Denies any fever or chills. c/o mild anxiety. On Lasix IV, Dexamethasone, and Remdesivir. Add Bariticinib. 12/18: Afebrile overnight. Was on BiPAP overnight, been switched to high flow oxygen earlier in the morning with 35L/min, FiO2 65%. Did not tolerate proning. Sputum culture grew H influenzae. c/o shortness of breath, improving. c/o productive cough with green sputum. Denies wheezing. c/o chest pain when cough. Denies fever, chills, or sweating. On Baricitinib, Remdesivir, and Dexamethasone. Switch Lasix from IV to PO, resume HCTZ-Lisinopril from home regimen. All Rocephin as coverage for bacterial pneumonia. 12/19: Afebrile overnight. Blood glucose 53 this morning, normalized after orange juice given. Was on BiPAP overnight, been switched to high flow oxygen earlier in the morning with 40L/min, FiO2 65%. Did not tolerate proning. Sputum culture grew H influenzae. c/o shortness of breath, improving. c/o productive cough with green sputum. Denies wheezing. c/o chest pain when cough. Denies fever, chills, or sweating. On Baricitinib, Remdesivir, and Dexamethasone. Continue PO Lasix and HCTZ-Lisinopril from home regimen. Continue Rocephin as coverage for bacterial pneumonia. 12/20: Afebrile overnight. Blood glucose 77 this morning. Was on BiPAP overnight, been switched to high flow oxygen earlier in the morning with 35L/min, FiO2 80%. Did not tolerate proning. Sputum culture grew H influenzae. Improving degree of shortness of breath. c/o productive cough with green sputum. Denies wheezing. c/o chest pain when cough. Denies fever, chills, or sweating. On Baricitinib, Remdesivir, and Dexamethasone. Continue PO Lasix and HCTZ-Lisinopril from home regimen. Continue Rocephin as coverage for bacterial pneumonia. 12/21: Hypoglycemia this morning, decreased Lantus to 40 units HS. FiO2 55% at 35L/min today. Lasix 40 mg IV BID started for increasing lower extremity pedal edema, holding home lasix. Decreased doses of home lopressor and lisinopril, holding home hydrochlorothiazide. 12/22: Oxygen requirement down to 4 L/min after receiving a couple doses of IV lasix. Fasting morning glucose 121. Constitutional Vitals: Vital Signs Temp Pulse Resp BP Pulse Ox 96.8 F L 61 23 H 139/64 93 12/22/21 11:49 12/22/21 15:14 12/22/21 15:14 12/22/21 14:44 12/22/21 15:14 Period Temp Pulse Resp BP Sys/Beck Pulse Ox Last 24 Hr 96.8 F-97.7 F 45-84 11-24 111-139/40-68 90-100 Intake and Output 12/22/21 12/22/21 12/22/21 05:59 13:59 21:59 Intake Total 0 1480 Output Total 550 1650 Balance -550 -170 Intake & Output: Intake & Output 12/22/21 12/22/21 12/22/21 05:59 13:59 21:59 Intake Total 0 1480 Output Total 550 1650 Balance -550 -170 Intake: Nourishment/Supplement quantity 240 (ml) IV 250 Veklury 100 mg In Sodium 250 Chloride 0.9% 250 ml @ 500 mls/ hr IV Q24H [facility] Rx#:[id number] Oral 0 990 Output: Void Amount 550 1650 Other: Meal Lunch Percent of Meal Consumed 100% Urine Appearance Clear Clear Urine Color Bright Yellow Bright Yellow Urine Odor Normal Normal Stool Size Large Stool Color Brown Stool Consistency Soft OBJ DATA Labs CBC & Chem 7: 12/22/21 04:25 12/22/21 04:25 Labs: Abnormal Lab Results 12/22/21 12/22/21 12/21/21 04:25 04:25 05:21 WBC RBC 3.59 L Hgb 10.8 L Hct 33.5 L Absolute Neutrophils Carbon Dioxide 32 H BUN 26 H 27 H Glucose 119 H Phosphorus Lactate Dehydrogenase 445 H 460 H C-Reactive Protein 2.30 H Albumin 3.0 L 2.9 L Albumin/Globulin Ratio 0.9 L 0.8 L 12/21/21 12/20/21 12/20/21 05:20 05:26 05:26 WBC 12.6 H RBC 3.74 L Hgb 11.5 L Hct 35.2 L Absolute Neutrophils 9.17 H Carbon Dioxide BUN 27 H Glucose Phosphorus 4.6 H Lactate Dehydrogenase C-Reactive Protein Albumin 2.8 L Albumin/Globulin Ratio 0.8 L 12/20/21 05:26 WBC 11.6 H RBC 3.71 L Hgb 11.2 L Hct 35.3 L Absolute Neutrophils 8.42 H Carbon Dioxide BUN Glucose Phosphorus Lactate Dehydrogenase C-Reactive Protein Albumin Albumin/Globulin Ratio Meds: Medications Acetaminophen (Acetaminophen 325 Mg Tablet) 650 mg PO Q6HP PRN; Protocol PRN Reason: Per Pain Protocol/Fever > 101 Last Admin: 12/19/21 14:45 Dose: 650 mg Documented by: Albuterol/Ipratropium (Ipratropium/Albuterol 3 Ml Ampul.Neb) 3 ml NEB Q4HRT PRN PRN Reason: Wheezing Artificial Tears (Carboxymethylcellulose Sodium 1 Each Droper.Gel) 1 each OU TID [facility] Last Admin: 12/22/21 14:35 Dose: 1 each Documented by: Benzonatate (Benzonatate 100 Mg Capsule) 200 mg PO TIDP PRN PRN Reason: Cough Last Admin: 12/21/21 10:24 Dose: 200 mg Documented by: Chlorhexidine Gluconate (Chlorhexidine Gluconate 1 Ml Oral.Irene) 15 ml SSP BID [facility] Last Admin: 12/22/21 08:19 Dose: 15 ml Documented by: Cyanocobalamin (Cyanocobalamin (Vitamin B-12) 500 Mcg Tablet) 1,000 mcg PO DAILY [facility] Last Admin: 12/22/21 08:17 Dose: 1,000 mcg Documented by: Dexamethasone (Dexamethasone 10 Mg/Ml Vial) 6 mg IV DAILY [facility] Last Admin: 12/22/21 08:19 Dose: 6 mg Documented by: Dextrose (Dextrose 50% 50 Ml Vial) 0 ml IV UD PRN PRN Reason: Hypoglycemia Diagnostic Test (Pha) (Accu-Chek 1 Each Strip) 1 each FS ACHS [facility] Last Admin: 12/22/21 12:03 Dose: 1 each Documented by: Docusate Sodium (Docusate Sodium 100 Mg Capsule) 100 mg PO BID [facility] Last Admin: 12/22/21 07:27 Dose: Not Given Documented by: Enoxaparin Sodium (Enoxaparin 40 Mg/0.4 Ml Syringe) 40 mg SQ BID [facility] Last Admin: 12/22/21 08:19 Dose: 40 mg Documented by: Furosemide (Furosemide 40 Mg/4 Ml Vial) 40 mg IV BIDD [facility] Stop: 12/22/21 16:01 Last Admin: 12/22/21 07:25 Dose: 40 mg Documented by: Gabapentin (Gabapentin 300 Mg Capsule) 300 mg PO TIDP PRN PRN Reason: pain Last Admin: 12/22/21 08:16 Dose: 300 mg Documented by: Glucose (Dextrose 31 Gm Oral.Susp) 15 gm PO PRN PRN PRN Reason: Hypoglycemia Potassium Chloride 20 meq/ (Dextrose) 260 mls @ 130 mls/hr IV DAILYP PRN PRN Reason: POTASSIUM LEVEL 2.5-2.9. REMDESIVIR 100 mg/ Sodium (Chloride) 250 mls @ 500 mls/hr IV Q24H [facility] Stop: 12/24/21 11:29 Last Infusion: 12/22/21 11:25 Dose: Infused Documented by: Insulin Glargine (Insulin Glargine, Human 1 Unit/0.01 Ml) 40 unit SQ HS [facility] Last Admin: 12/21/21 21:00 Dose: 40 units Documented by: Insulin Human Lispro (Insulin Lispro 1 Unit/0.01 Ml Unit) 40 unit SQ TIDAC [facility] Last Admin: 12/22/21 12:11 Dose: 40 units Documented by: Insulin Human Lispro (Insulin Lispro 1 Unit/0.01 Ml Unit) 0 unit SQ ACHS [facility]; Protocol Last Admin: 12/22/21 12:03 Dose: Not Given Documented by: Lactulose (Lactulose 20 Gm/30 Ml Oral.Irene) 10 gm PO DAILYP PRN PRN Reason: Constipation Lisinopril (Lisinopril 5 Mg Tablet) 5 mg PO DAILY [facility] Last Admin: 12/22/21 12:11 Dose: 5 mg Documented by: Loperamide HCl (Loperamide 2 Mg Capsule) 2 mg PO PRN PRN PRN Reason: Diarrhea Lorazepam (Lorazepam 1 Mg Tablet) 1 mg PO Q6HP PRN PRN Reason: ANXIETY/SEDATION Last Admin: 12/21/21 20:59 Dose: 1 mg Documented by: Magnesium Oxide (Magnesium Oxide 400 Mg Tablet) 400 mg PO DAILY [facility] Last Admin: 12/22/21 08:20 Dose: 400 mg Documented by: Methocarbamol (Methocarbamol 750 Mg Tablet) 750 mg PO BIDP PRN PRN Reason: Spasms Last Admin: 12/17/21 09:38 Dose: 750 mg Documented by: Metoprolol Tartrate (Metoprolol Tartrate 25 Mg Tablet) 12.5 mg PO BID [facility] Ondansetron HCl (Ondansetron 4 Mg/2 Ml Vial) 4 mg IV Q4HP PRN; Protocol PRN Reason: Nausea And Vomiting Pantoprazole Sodium (Pantoprazole 40 Mg Vial) 40 mg IV QAMAC [facility] Last Admin: 12/22/21 07:25 Dose: 40 mg Documented by: Potassium Chloride (Potassium Chloride 20 Meq Tablet) 20 meq PO DAILYP PRN PRN Reason: K LEVEL 3.0-3.4 Last Admin: 12/19/21 09:13 Dose: 20 meq Documented by: Senna (Sennosides 1 Tablet) 2 tab PO HSP PRN PRN Reason: Constipation Simvastatin (Simvastatin 40 Mg Tablet) 40 mg PO QHS [facility] Last Admin: 12/21/21 20:59 Dose: 40 mg Documented by: Sodium Chloride (0.9 % Sodium Chloride 10 Ml Syringe) 10 ml IV Q8 [facility] Last Admin: 12/22/21 12:12 Dose: 10 ml Documented by: Sodium Chloride (Sodium Chloride Nasal 1 [place] Bottle) 2 spray YANI Q4HP PRN PRN Reason: Congestion Last Admin: 12/18/21 09:55 Dose: 2 spray Documented by: Vitamin D (Vitamin D3 125 Mcg Tablet) 125 mcg PO DAILY [facility] Last Admin: 12/22/21 08:16 Dose: 125 mcg Documented by: A/P Narrative A/P Narrative: Assessment: 61-year-old male with a history of hypertension, dyslipidemia, type 2 diabetes mellitus, congestive heart failure, obesity admitted for acute hypoxic respiratory failure secondary to acute on severe Covid pneumonia complicated by acute on chronic congestive heart failure. #Acute hypoxic respiratory failure #Severe COVID pneumonia/ARDS #Possible community acquired pneumonia coinfection #Chronic diastolic heart failure #Type 2 diabetes mellitus c/b neuropathy #Essential hypertension #Dyslipidemia #Obesity BMI 48 #Elevated risk for sleep apnea Plan -Severe Covid treatments: Dexamethasone, remdesivir, baricitinib. -Oxygen supplementation, wean as able -Completed empiric ceftriaxone. -Complete Lasix 40 mg IV BID x3, holding home lasix for now. -Monitor volume status, possibly resume home lasix 80 mg daily tomorrow. -Lantus at bedtime, prandial NovoLog and SSI. -Continue reduced dose lisinopril and Lopressor, continue home simvastatin. -Holding home Metformin, semaglutide, hydrochlorothiazide. -Prone position as tolerated. -DVT prophylaxis: Lovenox SQ twice daily for BMI greater than 40. -CODE STATUS: Full -Disposition: probably home when stable depending on clinical progress. Time Spent With Patient Time: Total time spent is greater than 50% in coordination of care (as documented) at patient's floor/unit and/or counseling patient:
--- NOTE | 2021-12-22 16:11 | Internal Med Progress Note ---
SUBJECTIVE Subjective Patient information: Note initiated : 12/22/21 at 4:01 pm Service Date, if different from initiated Date: Patient: Jose Young 61 y/o M admitted on 12/15/21 for Weak. Chief Complaint: Principal diagnosis: CoVID pneumonia, CHF exacerbation Interval history: Patient's O2 requirements have decreased to 5 L nasal cannula. He still desats with minimal effort to the mid 80s. Patient's volume status is -950 mL. Lisinopril and metoprolol were held this morning for soft blood pressures. Pertinent ROS: No significant complaints. Endorses good appetite. Had a large stool this morning. Bored. Constitutional Vitals: Vital Signs Temp Pulse Resp BP Pulse Ox 96.8 F L 61 23 H 139/64 93 12/22/21 11:49 12/22/21 15:14 12/22/21 15:14 12/22/21 14:44 12/22/21 15:14 Period Temp Pulse Resp BP Sys/Beck Pulse Ox Last 24 Hr 96.8 F-97.7 F 45-84 11-24 111-139/40-68 90-100 Intake and Output 12/22/21 12/22/21 12/22/21 05:59 13:59 21:59 Intake Total 0 1480 Output Total 550 1650 Balance -550 -170 Intake & Output: Intake & Output 12/22/21 12/22/21 12/22/21 05:59 13:59 21:59 Intake Total 0 1480 Output Total 550 1650 Balance -550 -170 Intake: Nourishment/Supplement quantity 240 (ml) IV 250 Veklury 100 mg In Sodium 250 Chloride 0.9% 250 ml @ 500 mls/ hr IV Q24H [facility] Rx#:[id number] Oral 0 990 Output: Void Amount 550 1650 Other: Meal Lunch Percent of Meal Consumed 100% Urine Appearance Clear Clear Urine Color Bright Yellow Bright Yellow Urine Odor Normal Normal Stool Size Large Stool Color Brown Stool Consistency Soft General appearance: cooperative, morbidly obese and no acute distress Head Head exam: Present normal inspection Eye Eye exam: Present EOMI and PERRL; Absent conjunctival injection ENT ENT exam: Present mucous membranes moist and normal oropharynx Respiratory Respiratory exam: Present normal respiratory exam Additional comments: Bilateral crackles at the bases. He has diminished breath sounds on the right upper lobe. Cardiovascular Cardiovascular exam: Present bradycardia; Absent clicks, diastolic murmur, rubs or systolic murmur GI/Abdominal GI/Abdominal exam: Present soft; Absent distended, guarding or tenderness Neurological Exam Neurological exam: Present alert, CN II-XII intact and oriented X3; Absent motor sensory deficit Psychiatric Psychiatric exam: Present normal affect and normal mood Skin Skin exam: Present dry, normal color and warm OBJ DATA Labs CBC & Chem 7: 12/22/21 04:25 12/22/21 04:25 Labs: Abnormal Lab Results 12/22/21 12/22/21 12/21/21 04:25 04:25 05:21 WBC RBC 3.59 L Hgb 10.8 L Hct 33.5 L Absolute Neutrophils Carbon Dioxide 32 H BUN 26 H 27 H Glucose 119 H Phosphorus Lactate Dehydrogenase 445 H 460 H C-Reactive Protein 2.30 H Albumin 3.0 L 2.9 L Albumin/Globulin Ratio 0.9 L 0.8 L 12/21/21 12/20/21 12/20/21 05:20 05:26 05:26 WBC 12.6 H RBC 3.74 L Hgb 11.5 L Hct 35.2 L Absolute Neutrophils 9.17 H Carbon Dioxide BUN 27 H Glucose Phosphorus 4.6 H Lactate Dehydrogenase C-Reactive Protein Albumin 2.8 L Albumin/Globulin Ratio 0.8 L 12/20/21 05:26 WBC 11.6 H RBC 3.71 L Hgb 11.2 L Hct 35.3 L Absolute Neutrophils 8.42 H Carbon Dioxide BUN Glucose Phosphorus Lactate Dehydrogenase C-Reactive Protein Albumin Albumin/Globulin Ratio Meds: Medications Acetaminophen (Acetaminophen 325 Mg Tablet) 650 mg PO Q6HP PRN; Protocol PRN Reason: Per Pain Protocol/Fever > 101 Last Admin: 12/19/21 14:45 Dose: 650 mg Documented by: Albuterol/Ipratropium (Ipratropium/Albuterol 3 Ml Ampul.Neb) 3 ml NEB Q4HRT PRN PRN Reason: Wheezing Artificial Tears (Carboxymethylcellulose Sodium 1 Each Droper.Gel) 1 each OU TID [facility] Last Admin: 12/22/21 14:35 Dose: 1 each Documented by: Benzonatate (Benzonatate 100 Mg Capsule) 200 mg PO TIDP PRN PRN Reason: Cough Last Admin: 12/21/21 10:24 Dose: 200 mg Documented by: Chlorhexidine Gluconate (Chlorhexidine Gluconate 1 Ml Oral.Irene) 15 ml SSP BID [facility] Last Admin: 12/22/21 08:19 Dose: 15 ml Documented by: Cyanocobalamin (Cyanocobalamin (Vitamin B-12) 500 Mcg Tablet) 1,000 mcg PO DAILY [facility] Last Admin: 12/22/21 08:17 Dose: 1,000 mcg Documented by: Dexamethasone (Dexamethasone 10 Mg/Ml Vial) 6 mg IV DAILY [facility] Last Admin: 12/22/21 08:19 Dose: 6 mg Documented by: Dextrose (Dextrose 50% 50 Ml Vial) 0 ml IV UD PRN PRN Reason: Hypoglycemia Diagnostic Test (Pha) (Accu-Chek 1 Each Strip) 1 each FS ACHS [facility] Last Admin: 12/22/21 12:03 Dose: 1 each Documented by: Docusate Sodium (Docusate Sodium 100 Mg Capsule) 100 mg PO BID [facility] Last Admin: 12/22/21 07:27 Dose: Not Given Documented by: Enoxaparin Sodium (Enoxaparin 40 Mg/0.4 Ml Syringe) 40 mg SQ BID [facility] Last Admin: 12/22/21 08:19 Dose: 40 mg Documented by: Gabapentin (Gabapentin 300 Mg Capsule) 300 mg PO TIDP PRN PRN Reason: pain Last Admin: 12/22/21 08:16 Dose: 300 mg Documented by: Glucose (Dextrose 31 Gm Oral.Susp) 15 gm PO PRN PRN PRN Reason: Hypoglycemia Potassium Chloride 20 meq/ (Dextrose) 260 mls @ 130 mls/hr IV DAILYP PRN PRN Reason: POTASSIUM LEVEL 2.5-2.9. REMDESIVIR 100 mg/ Sodium (Chloride) 250 mls @ 500 mls/hr IV Q24H [facility] Stop: 12/24/21 11:29 Last Infusion: 12/22/21 11:25 Dose: Infused Documented by: Insulin Glargine (Insulin Glargine, Human 1 Unit/0.01 Ml) 40 unit SQ HS [facility] Last Admin: 12/21/21 21:00 Dose: 40 units Documented by: Insulin Human Lispro (Insulin Lispro 1 Unit/0.01 Ml Unit) 40 unit SQ TIDAC [facility] Last Admin: 12/22/21 12:11 Dose: 40 units Documented by: Insulin Human Lispro (Insulin Lispro 1 Unit/0.01 Ml Unit) 0 unit SQ ACHS [facility]; Protocol Last Admin: 12/22/21 12:03 Dose: Not Given Documented by: Lactulose (Lactulose 20 Gm/30 Ml Oral.Irene) 10 gm PO DAILYP PRN PRN Reason: Constipation Lisinopril (Lisinopril 5 Mg Tablet) 5 mg PO DAILY [facility] Last Admin: 12/22/21 12:11 Dose: 5 mg Documented by: Loperamide HCl (Loperamide 2 Mg Capsule) 2 mg PO PRN PRN PRN Reason: Diarrhea Lorazepam (Lorazepam 1 Mg Tablet) 1 mg PO Q6HP PRN PRN Reason: ANXIETY/SEDATION Last Admin: 12/21/21 20:59 Dose: 1 mg Documented by: Magnesium Oxide (Magnesium Oxide 400 Mg Tablet) 400 mg PO DAILY [facility] Last Admin: 12/22/21 08:20 Dose: 400 mg Documented by: Methocarbamol (Methocarbamol 750 Mg Tablet) 750 mg PO BIDP PRN PRN Reason: Spasms Last Admin: 12/17/21 09:38 Dose: 750 mg Documented by: Metoprolol Tartrate (Metoprolol Tartrate 25 Mg Tablet) 12.5 mg PO BID [facility] Ondansetron HCl (Ondansetron 4 Mg/2 Ml Vial) 4 mg IV Q4HP PRN; Protocol PRN Reason: Nausea And Vomiting Pantoprazole Sodium (Pantoprazole 40 Mg Vial) 40 mg IV QAMAC [facility] Last Admin: 12/22/21 07:25 Dose: 40 mg Documented by: Potassium Chloride (Potassium Chloride 20 Meq Tablet) 20 meq PO DAILYP PRN PRN Reason: K LEVEL 3.0-3.4 Last Admin: 12/19/21 09:13 Dose: 20 meq Documented by: Senna (Sennosides 1 Tablet) 2 tab PO HSP PRN PRN Reason: Constipation Simvastatin (Simvastatin 40 Mg Tablet) 40 mg PO QHS [facility] Last Admin: 12/21/21 20:59 Dose: 40 mg Documented by: Sodium Chloride (0.9 % Sodium Chloride 10 Ml Syringe) 10 ml IV Q8 [facility] Last Admin: 12/22/21 12:12 Dose: 10 ml Documented by: Sodium Chloride (Sodium Chloride Nasal 1 [place] Bottle) 2 spray YANI Q4HP PRN PRN Reason: Congestion Last Admin: 12/18/21 09:55 Dose: 2 spray Documented by: Vitamin D (Vitamin D3 125 Mcg Tablet) 125 mcg PO DAILY [facility] Last Admin: 12/22/21 08:16 Dose: 125 mcg Documented by: A/P Narrative A/P Narrative: Covid pneumonia Acute on chronic CHF T2DM Hypertension Patient has been diuresing and seems to be improving fairly rapidly. He is now requiring only 5 L nasal cannula. Blood glucose is in good control. Holding parameters on blood pressure medication with ongoing diuresis. Patient was discussed with Dr. Lackey. Please see his notes for further details and plan of care. Time Spent With Patient Time: Total time spent is greater than 50% in coordination of care (as documented) at patient's floor/unit and/or counseling patient: 15 minutes
[2021-12-22] MEDS: LORazepam 1 MG TABLET PO PRN (20:48)
[2021-12-22] MEDS: INSULIN GLARGINE, HUMAN 1 UNIT/0.01 ML SQ SCH (20:50)
[2021-12-22] MEDS: SIMVASTATIN 40 MG TABLET PO SCH (20:51)
[2021-12-22] MEDS ORDERED: METOPROLOL TARTRATE 25 MG TABLET PO SCH (21:00)
[2021-12-23] MEDS: INSULIN LISPRO 1 UNIT/0.01 ML UNIT SQ SCH ×7 (07:58→21:00)
[2021-12-23] MEDS: 0.9 % SODIUM CHLORIDE 10 ML SYRINGE IV SCH ×3 (07:58→22:00)
[2021-12-23] MEDS: DEXAMETHASONE 10 MG/ML VIAL IV SCH (07:59)
[2021-12-23] MEDS: PANTOPRAZOLE 40 MG VIAL IV SCH (07:59)
[2021-12-23] MEDS: METOPROLOL TARTRATE 25 MG TABLET PO SCH ×2 (07:59→20:49)
[2021-12-23] MEDS: DOCUSATE SODIUM 100 MG CAPSULE PO SCH ×2 (07:59→20:49)
[2021-12-23] MEDS: CYANOCOBALAMIN (VITAMIN B-12) 500 MCG TABLET PO SCH (08:00)
[2021-12-23] MEDS: CARBOXYMETHYLCELLULOSE SODIUM 1 EACH DROPER.GEL OU SCH ×3 (08:00→20:52)
[2021-12-23] MEDS: VITAMIN D3 125 MCG TABLET PO SCH (08:00)
[2021-12-23] MEDS: ENOXAPARIN 40 MG/0.4 ML SYRINGE SQ SCH ×2 (08:00→20:44)
[2021-12-23] MEDS: MAGNESIUM OXIDE 400 MG TABLET PO SCH (08:00)
[2021-12-23] MEDS: LISINOPRIL 5 MG TABLET PO SCH (08:01)
[2021-12-23] MEDS: CHLORHEXIDINE GLUCONATE 1 ML ORAL.SOL SSP SCH ×2 (08:02→20:44)
[2021-12-23] MEDS: BARICITINIB 2 MG TABLET PO SCH (08:02)
[2021-12-23 08:12] LABS: ALT/SGPT 29 U/L (<40); AST/SGOT 26 U/L (<40); Albumin/Globulin Ratio 0.9 (1.0-2.3); Alkaline Phosphatase 42 U/L (39-117); Bilirubin,Direct < 0.2 mg/dL (0-0.3); Bilirubin,Total 0.3 mg/dL (0.1-1.0); Blood Urea Nitrogen 29 mg/dL (8-23); Calcium 9.1 mg/dL (8.6-10.4); Carbon Dioxide 30 mmol/L (22-30); Chloride 98 mmol/L (96-108); Globulin 3.2 gm/dL (2.2-3.7); Glomerular Filtration Rate 59; Glucose 197 mg/dL (70-105); Lactate Dehydrogenase 454 U/L (135-225); Phosphorous 3.9 mg/dL (2.5-4.5); Triglycerides 59 mg/dL (<150); Uric Acid 6.8 mg/dL (2.5-8.0)
--- NOTE | 2021-12-23 08:30 | Internal Med Progress Note ---
SUBJECTIVE Subjective Patient information: Note initiated : 12/23/21 at 8:24 am Service Date, if different from initiated Date: [] Patient: Jose Young a 61 y/o M admitted on 12/15/21 for Weak. Chief Complaint: [] Principal diagnosis: CoVID pneumonia, CHF exacerbation Interval history: Mr. Young is a 61 year old M history of congestive heart failure, chronic kidney disease stage III, morbid obesity, essential hypertension, mixed dyslipidemia, type 2 diabetes mellitus, presenting with 3 weeks history of shortness of breath, cough, fever, chills, and bilateral leg swellings. He ran out of his diuretics Lasix 3 weeks ago. Since then, he had gradually worsening shortness of breath, cough, fever, chills, and bilateral leg swellings. He is also complained of dyspnea on exertions with 20 feet. He is also committing of orthopnea to the point that he has to sleep on the chair. He denies any wheezing. He denies any unintentional weight gain. Patient is vaccinated against COVID-pneumonia. Of note, his son was recently being diagnosed with COVID-pneumonia. Labs significant for lack of leukocytosis with WBC 7.3. POC potassium level 2.9. Serum creatinine level 1.4 which is at around his baseline. Serum glucose level 224. Serum troponin level 0.20 followed by 0.19. Serum BNP 1420. Eunice negative. [place] pending. Chest x-ray showing severe infiltrates throughout both lungs which could be due to pulmonary edema or severe widespread bilateral pneumonia such as COVID-pneumonia. 12/16: Afebrile overnight. [place] positive. Blood cultures no growth to date. Sputum culture mixed becky. On BiPAP 15/7 FiO2 75%. c/o shortness of breath, improving. c/o productive cough with brown and green sputum. c/o wheezing. c/o chest pain when cough. c/o sweating. Denies any fever or chills. c/o mild anxiety. On Lasix IV, Dexamethasone, and Remdesivir. Add Bariticinib. 12/17: Afebrile overnight. Patient has been lying on his side. Blood cultures no growth to date. Sputum culture mixed becky. Troponin 0.11-->0.09. On BiPAP 15/7 FiO2 60%. c/o shortness of breath, improving. c/o productive cough with brown and green sputum. c/o wheezing. c/o chest pain when cough. c/o sweating. Denies any fever or chills. c/o mild anxiety. On Lasix IV, Dexamethasone, and Remdesivir. Add Bariticinib. 12/18: Afebrile overnight. Was on BiPAP overnight, been switched to high flow oxygen earlier in the morning with 35L/min, FiO2 65%. Did not tolerate proning. Sputum culture grew H influenzae. c/o shortness of breath, improving. c/o productive cough with green sputum. Denies wheezing. c/o chest pain when cough. Denies fever, chills, or sweating. On Baricitinib, Remdesivir, and Dexamethasone. Switch Lasix from IV to PO, resume HCTZ-Lisinopril from home regimen. All Rocephin as coverage for bacterial pneumonia. 12/19: Afebrile overnight. Blood glucose 53 this morning, normalized after orange juice given. Was on BiPAP overnight, been switched to high flow oxygen earlier in the morning with 40L/min, FiO2 65%. Did not tolerate proning. Sputum culture grew H influenzae. c/o shortness of breath, improving. c/o productive cough with green sputum. Denies wheezing. c/o chest pain when cough. Denies fever, chills, or sweating. On Baricitinib, Remdesivir, and Dexamethasone. Continue PO Lasix and HCTZ-Lisinopril from home regimen. Continue Rocephin as coverage for bacterial pneumonia. 12/20: Afebrile overnight. Blood glucose 77 this morning. Was on BiPAP overnight, been switched to high flow oxygen earlier in the morning with 35L/min, FiO2 80%. Did not tolerate proning. Sputum culture grew H influenzae. Improving degree of shortness of breath. c/o productive cough with green sputum. Denies wheezing. c/o chest pain when cough. Denies fever, chills, or sweating. On Baricitinib, Remdesivir, and Dexamethasone. Continue PO Lasix and HCTZ-Lisinopril from home regimen. Continue Rocephin as coverage for bacterial pneumonia. 12/21: Hypoglycemia this morning, decreased Lantus to 40 units HS. FiO2 55% at 35L/min today. Lasix 40 mg IV BID started for increasing lower extremity pedal edema, holding home lasix. Decreased doses of home lopressor and lisinopril, holding home hydrochlorothiazide. 12/22: Oxygen requirement down to 4 L/min after receiving a couple doses of IV lasix. Fasting morning glucose 121. 12/23 Patient seen examined, feels better, but noted oxyen requirements have gone up, breathing is stable, Notes still has cough, but the color of sputum has changed from yellowish/green to clear Overnight with tae, but improved HR in AM, Pertinent ROS: Denies headache, dizziness Denies chest pain, palpitations cough improving, shortness of breath improving Denies abdominal pain, nausea or vomiting. Constitutional Vitals: Vital Signs Temp Pulse Resp BP Pulse Ox 96.9 F L 45 L 16 126/58 100 12/23/21 08:00 12/23/21 05:23 12/23/21 08:00 12/23/21 08:00 12/23/21 08:00 Period Temp Pulse Resp BP Sys/Beck Pulse Ox Last 24 Hr 96.8 F-97.7 F 45-72 7-24 106-139/44-76 90-100 Intake and Output 12/22/21 12/23/21 12/23/21 21:59 05:59 13:59 Intake Total 830 Output Total 1750 950 250 Balance -920 -950 -250 Weight 168.691 kg Intake & Output: Intake & Output 12/22/21 12/23/21 12/23/21 21:59 05:59 13:59 Intake Total 830 Output Total 1750 950 250 Balance -920 -950 -250 Weight 168.691 kg Intake: Oral 830 Output: Void Amount 1750 950 250 Other: Urine Appearance Clear Clear Clear Urine Color Pale Dark Yellow Dark Yellow Urine Odor Normal Normal Additional findings Additional findings: Constitutional; Afebrile, cooperative, alert, not in distress. Morbidly obese Eyes- No icterus, , No periorbital swelling Ears- Ext ear normal, hearing normal to conversation. Neck- Midline trachea, supple Respiratory system: Air Entry equal on both sides, bibasilar crakcles present, no wheezing, speaking full sentences CVS- Rate rhythm regular, S1,S2 heard, no gallop, no rub, systolic murmur present , bilateral lower exremity edema present. Abdomen- Soft nontender abdomen, no organomegaly, no tenderness, no guarding or rigidity, Large pannus [employer] REPRESENTATIVE- AOOx3, moving all extremities, no gross focal deficit noted. OBJ DATA Labs CBC & Chem 7: 12/22/21 04:25 12/23/21 05:12 Labs: Abnormal Lab Results 12/23/21 12/22/21 12/22/21 05:12 04:25 04:25 WBC RBC 3.59 L Hgb 10.8 L Hct 33.5 L Absolute Neutrophils Carbon Dioxide 32 H BUN 29 H 26 H Creatinine 1.3 H Glucose 197 H 119 H Lactate Dehydrogenase 454 H 445 H C-Reactive Protein Albumin 3.0 L 3.0 L Albumin/Globulin Ratio 0.9 L 0.9 L 12/21/21 12/21/21 05:21 05:20 WBC 12.6 H RBC 3.74 L Hgb 11.5 L Hct 35.2 L Absolute Neutrophils 9.17 H Carbon Dioxide BUN 27 H Creatinine Glucose Lactate Dehydrogenase 460 H C-Reactive Protein 2.30 H Albumin 2.9 L Albumin/Globulin Ratio 0.8 L Meds: Medications Acetaminophen (Acetaminophen 325 Mg Tablet) 650 mg PO Q6HP PRN; Protocol PRN Reason: Per Pain Protocol/Fever > 101 Last Admin: 12/19/21 14:45 Dose: 650 mg Documented by: Albuterol/Ipratropium (Ipratropium/Albuterol 3 Ml Ampul.Neb) 3 ml NEB Q4HRT PRN PRN Reason: Wheezing Artificial Tears (Carboxymethylcellulose Sodium 1 Each Droper.Gel) 1 each OU TID [facility] Last Admin: 12/23/21 08:00 Dose: 1 each Documented by: Benzonatate (Benzonatate 100 Mg Capsule) 200 mg PO TIDP PRN PRN Reason: Cough Last Admin: 12/21/21 10:24 Dose: 200 mg Documented by: Chlorhexidine Gluconate (Chlorhexidine Gluconate 1 Ml Oral.Irene) 15 ml SSP BID [facility] Last Admin: 12/23/21 08:02 Dose: 15 ml Documented by: Cyanocobalamin (Cyanocobalamin (Vitamin B-12) 500 Mcg Tablet) 1,000 mcg PO DAILY [facility] Last Admin: 12/23/21 08:00 Dose: 1,000 mcg Documented by: Dexamethasone (Dexamethasone 10 Mg/Ml Vial) 6 mg IV DAILY [facility] Last Admin: 12/23/21 07:59 Dose: 6 mg Documented by: Dextrose (Dextrose 50% 50 Ml Vial) 0 ml IV UD PRN PRN Reason: Hypoglycemia Diagnostic Test (Pha) (Accu-Chek 1 Each Strip) 1 each FS [facility] Last Admin: 12/23/21 07:58 Dose: 1 each Documented by: Docusate Sodium (Docusate Sodium 100 Mg Capsule) 100 mg PO BID [facility] Last Admin: 12/23/21 07:59 Dose: Not Given Documented by: Enoxaparin Sodium (Enoxaparin 40 Mg/0.4 Ml Syringe) 40 mg SQ BID [facility] Last Admin: 12/23/21 08:00 Dose: 40 mg Documented by: Furosemide (Furosemide 40 Mg/4 Ml Vial) 40 mg IV BIDD [facility] Gabapentin (Gabapentin 300 Mg Capsule) 300 mg PO TIDP PRN PRN Reason: pain Last Admin: 12/22/21 08:16 Dose: 300 mg Documented by: Glucose (Dextrose 31 Gm Oral.Susp) 15 gm PO PRN PRN PRN Reason: Hypoglycemia Potassium Chloride 20 meq/ (Dextrose) 260 mls @ 130 mls/hr IV DAILYP PRN PRN Reason: POTASSIUM LEVEL 2.5-2.9. REMDESIVIR 100 mg/ Sodium (Chloride) 250 mls @ 500 mls/hr IV Q24H [facility] Stop: 12/24/21 11:29 Last Infusion: 12/22/21 11:25 Dose: Infused Documented by: Insulin Glargine (Insulin Glargine, Human 1 Unit/0.01 Ml) 40 unit SQ HS [facility] Last Admin: 12/22/21 20:50 Dose: 40 units Documented by: Insulin Human Lispro (Insulin Lispro 1 Unit/0.01 Ml Unit) 40 unit SQ TIDAC [facility] Last Admin: 12/23/21 07:58 Dose: 40 units Documented by: Insulin Human Lispro (Insulin Lispro 1 Unit/0.01 Ml Unit) 0 unit SQ [facility]; Protocol Last Admin: 12/23/21 07:59 Dose: Not Given Documented by: Lactulose (Lactulose 20 Gm/30 Ml Oral.Irene) 10 gm PO DAILYP PRN PRN Reason: Constipation Loperamide HCl (Loperamide 2 Mg Capsule) 2 mg PO PRN PRN PRN Reason: Diarrhea Lorazepam (Lorazepam 1 Mg Tablet) 1 mg PO Q6HP PRN PRN Reason: ANXIETY/SEDATION Last Admin: 12/22/21 20:48 Dose: 1 mg Documented by: Magnesium Oxide (Magnesium Oxide 400 Mg Tablet) 400 mg PO DAILY [facility] Last Admin: 12/23/21 08:00 Dose: 400 mg Documented by: Methocarbamol (Methocarbamol 750 Mg Tablet) 750 mg PO BIDP PRN PRN Reason: Spasms Last Admin: 12/17/21 09:38 Dose: 750 mg Documented by: Metoprolol Tartrate (Metoprolol Tartrate 25 Mg Tablet) 12.5 mg PO BID [facility] Last Admin: 12/23/21 07:59 Dose: 12.5 mg Documented by: Ondansetron HCl (Ondansetron 4 Mg/2 Ml Vial) 4 mg IV Q4HP PRN; Protocol PRN Reason: Nausea And Vomiting Pantoprazole Sodium (Pantoprazole 40 Mg Vial) 40 mg IV QAMAC [facility] Last Admin: 12/23/21 07:59 Dose: 40 mg Documented by: Potassium Chloride (Potassium Chloride 20 Meq Tablet) 20 meq PO DAILYP PRN PRN Reason: K LEVEL 3.0-3.4 Last Admin: 12/19/21 09:13 Dose: 20 meq Documented by: Senna (Sennosides 1 Tablet) 2 tab PO HSP PRN PRN Reason: Constipation Simvastatin (Simvastatin 40 Mg Tablet) 40 mg PO QHS [facility] Last Admin: 12/22/21 20:51 Dose: 40 mg Documented by: Sodium Chloride (0.9 % Sodium Chloride 10 Ml Syringe) 10 ml IV Q8 [facility] Last Admin: 12/23/21 07:58 Dose: 10 ml Documented by: Sodium Chloride (Sodium Chloride Nasal 1 [place] Bottle) 2 spray YANI Q4HP PRN PRN Reason: Congestion Last Admin: 12/18/21 09:55 Dose: 2 spray Documented by: Vitamin D (Vitamin D3 125 Mcg Tablet) 125 mcg PO DAILY [facility] Last Admin: 12/23/21 08:00 Dose: 125 mcg Documented by: A/P Narrative A/P Narrative: A/P Narrative: Assessment: 61-year-old male with a history of hypertension, dyslipidemia, type 2 diabetes mellitus, congestive heart failure, obesity admitted for acute hypoxic respiratory failure secondary to acute on severe Covid pneumonia complicated by acute on chronic congestive heart failure. #Acute hypoxic respiratory failure #Severe COVID pneumonia/ARDS #Possible community acquired pneumonia coinfection #Chronic diastolic heart failure #Type 2 diabetes mellitus c/b neuropathy, uncontrolled with hyperglycemia #Essential hypertension #Dyslipidemia #Obesity BMI 48 #Elevated risk for sleep apnea, suspect dagn #Acute Kidney injuury Plan -Severe Covid treatments: Dexamethasone, remdesivir, baricitinib. to continue -Oxygen supplementation, wean as able, back up on oxyge needs -Completed empiric ceftriaxone. -Complete Lasix 40 mg IV BID x 3 , Given worsening oxygen needs , resume lasix 40mg bid, educated on need for incentive spirometery -Hold home lisinopril dose given worsening renal function, monitor creat closely -Monitor volume status closely -Lantus at bedtime, prandial NovoLog and SSI, Glucose levels have trended up, monitor for now. -Continue dose of Lopressor, continue home simvastatin. -Holding home Metformin, semaglutide, hydrochlorothiazide, for now -Prone position as tolerated. -DVT prophylaxis: Lovenox SQ twice daily for BMI greater than 40. -CODE STATUS: Full -Disposition: probably home when stable depending on clinical progress. Time Spent With Patient Time: Total time spent is greater than 50% in coordination of care (as documented) at patient's floor/unit and/or counseling patient: Total time spent with greater than 50% in coordination of care (as documented) at patient's floor/unit and/or counseling patient:: Greater than 35 minutes
[2021-12-23] MEDS: REMDESIVIR 100 MG in 0.9 % SODIUM CHLORIDE 250 ML IV SCH (10:21)
[2021-12-23] MEDS: FUROSEMIDE 40 MG/4 ML VIAL IV SCH (17:25)
[2021-12-23] MEDS: SIMVASTATIN 40 MG TABLET PO SCH (20:48)
[2021-12-23] MEDS: INSULIN GLARGINE, HUMAN 1 UNIT/0.01 ML SQ SCH (20:48)
[2021-12-23] MEDS: LORazepam 1 MG TABLET PO PRN (21:12)
[2021-12-24] MEDS: 0.9 % SODIUM CHLORIDE 10 ML SYRINGE IV SCH ×3 (04:00→20:37)
--- NOTE | 2021-12-24 06:19 | Internal Med Progress Note ---
SUBJECTIVE Subjective Patient information: Note initiated : 12/24/21 at 6:17 am Service Date, if different from initiated Date: [] Patient: Jose Young a 61 y/o M admitted on 12/15/21 for Weak. Chief Complaint: [] Principal diagnosis: CoVID pneumonia, CHF exacerbation Interval history: Mr. Young is a 61 year old M history of congestive heart failure, chronic kidney disease stage III, morbid obesity, essential hypertension, mixed dyslipidemia, type 2 diabetes mellitus, presenting with 3 weeks history of shortness of breath, cough, fever, chills, and bilateral leg swellings. He ran out of his diuretics Lasix 3 weeks ago. Since then, he had gradually worsening shortness of breath, cough, fever, chills, and bilateral leg swellings. He is also complained of dyspnea on exertions with 20 feet. He is also committing of orthopnea to the point that he has to sleep on the chair. He denies any wheezing. He denies any unintentional weight gain. Patient is vaccinated against COVID-pneumonia. Of note, his son was recently being diagnosed with COVID-pneumonia. Labs significant for lack of leukocytosis with WBC 7.3. POC potassium level 2.9. Serum creatinine level 1.4 which is at around his baseline. Serum glucose level 224. Serum troponin level 0.20 followed by 0.19. Serum BNP 1420. Eunice negative. [place] pending. Chest x-ray showing severe infiltrates throughout both lungs which could be due to pulmonary edema or severe widespread bilateral pneumonia such as COVID-pneumonia. 12/16: Afebrile overnight. [place] positive. Blood cultures no growth to date. Sputum culture mixed becky. On BiPAP 15/7 FiO2 75%. c/o shortness of breath, improving. c/o productive cough with brown and green sputum. c/o wheezing. c/o chest pain when cough. c/o sweating. Denies any fever or chills. c/o mild anxiety. On Lasix IV, Dexamethasone, and Remdesivir. Add Bariticinib. 12/17: Afebrile overnight. Patient has been lying on his side. Blood cultures no growth to date. Sputum culture mixed becky. Troponin 0.11-->0.09. On BiPAP 15/7 FiO2 60%. c/o shortness of breath, improving. c/o productive cough with brown and green sputum. c/o wheezing. c/o chest pain when cough. c/o sweating. Denies any fever or chills. c/o mild anxiety. On Lasix IV, Dexamethasone, and Remdesivir. Add Bariticinib. 12/18: Afebrile overnight. Was on BiPAP overnight, been switched to high flow oxygen earlier in the morning with 35L/min, FiO2 65%. Did not tolerate proning. Sputum culture grew H influenzae. c/o shortness of breath, improving. c/o productive cough with green sputum. Denies wheezing. c/o chest pain when cough. Denies fever, chills, or sweating. On Baricitinib, Remdesivir, and Dexamethasone. Switch Lasix from IV to PO, resume HCTZ-Lisinopril from home regimen. All Rocephin as coverage for bacterial pneumonia. 12/19: Afebrile overnight. Blood glucose 53 this morning, normalized after orange juice given. Was on BiPAP overnight, been switched to high flow oxygen earlier in the morning with 40L/min, FiO2 65%. Did not tolerate proning. Sputum culture grew H influenzae. c/o shortness of breath, improving. c/o productive cough with green sputum. Denies wheezing. c/o chest pain when cough. Denies fever, chills, or sweating. On Baricitinib, Remdesivir, and Dexamethasone. Continue PO Lasix and HCTZ-Lisinopril from home regimen. Continue Rocephin as coverage for bacterial pneumonia. 12/20: Afebrile overnight. Blood glucose 77 this morning. Was on BiPAP overnight, been switched to high flow oxygen earlier in the morning with 35L/min, FiO2 80%. Did not tolerate proning. Sputum culture grew H influenzae. Improving degree of shortness of breath. c/o productive cough with green sputum. Denies wheezing. c/o chest pain when cough. Denies fever, chills, or sweating. On Baricitinib, Remdesivir, and Dexamethasone. Continue PO Lasix and HCTZ-Lisinopril from home regimen. Continue Rocephin as coverage for bacterial pneumonia. 12/21: Hypoglycemia this morning, decreased Lantus to 40 units HS. FiO2 55% at 35L/min today. Lasix 40 mg IV BID started for increasing lower extremity pedal edema, holding home lasix. Decreased doses of home lopressor and lisinopril, holding home hydrochlorothiazide. 12/22: Oxygen requirement down to 4 L/min after receiving a couple doses of IV lasix. Fasting morning glucose 121. 12/23 Patient seen examined, feels better, but noted oxyen requirements have gone up, breathing is stable, Notes still has cough, but the color of sputum has changed from yellowish/green to clear Overnight with tae, but improved HR in AM, 12/24 patient seen examined, by the bed side, no acute complaints or concerns Doing well, overnight became bradycardic again, was on bipap , HOld metoprolol for now, and monitor Glucose level improving by still high, increase lantus to 50 units qhs Pt reports ongoing improvment in breathing, Cough reported as minimal Pertinent ROS: Denies headache, dizziness Denies chest pain, palpitations minimal dry cough , improving shortness of breath Denies abdominal pain, nausea or vomiting. Constitutional Vitals: Vital Signs Temp Pulse Resp BP Pulse Ox 97.6 F 45 L 20 124/57 98 12/24/21 00:21 12/24/21 05:04 12/24/21 05:04 12/24/21 00:21 12/24/21 05:04 Period Temp Pulse Resp BP Sys/Beck Pulse Ox Last 24 Hr 96.8 F-97.9 F 44-82 9-24 109-146/42-69 92-100 Intake and Output 12/23/21 12/24/21 12/24/21 21:59 05:59 13:59 Intake Total 350 Output Total 1275 100 200 Balance -925 -100 -200 Weight 167.512 kg Intake & Output: Intake & Output 12/23/21 12/24/21 12/24/21 21:59 05:59 13:59 Intake Total 350 Output Total 1275 100 200 Balance -925 -100 -200 Weight 167.512 kg Intake: Oral 350 Output: Void Amount 1275 100 200 Other: Urine Appearance Clear Clear Clear Urine Color Bright Yellow Bright Yellow Dark Yellow Urine Odor Normal Normal Stool Size Moderate Stool Color Brown Stool Consistency Soft Formed # Bowel Movements 1 # of times incontinent of 0 Bowels Additional findings Additional findings: Physical Exam Constitutional; Afebrile, cooperative, alert, not in distress. morbidly obese Eyes- No icterus, , No periorbital swelling Ears- Ext ear normal, hearing normal to conversation. Neck- Midline trachea, supple Respiratory system: Air Entry equal on both sides, no wheezing, bibasilar crakcles present. CVS- Rate bradycardic, rhythm regular, S1,S2 heard, no gallop, no rub. Edema in feet improving, Abdomen- Soft nontender abdomen, no organomegaly, no tenderness, no guarding or rigidity, [employer]- AOOx3, moving all extremities, no gross focal deficit noted. OBJ DATA Labs CBC & Chem 7: 12/22/21 04:25 12/23/21 05:12 Labs: Abnormal Lab Results 12/23/21 12/22/21 12/22/21 05:12 04:25 04:25 WBC RBC 3.59 L Hgb 10.8 L Hct 33.5 L Absolute Neutrophils Carbon Dioxide 32 H BUN 29 H 26 H Creatinine 1.3 H Glucose 197 H 119 H Lactate Dehydrogenase 454 H 445 H C-Reactive Protein Albumin 3.0 L 3.0 L Albumin/Globulin Ratio 0.9 L 0.9 L 12/21/21 12/21/21 05:21 05:20 WBC 12.6 H RBC 3.74 L Hgb 11.5 L Hct 35.2 L Absolute Neutrophils 9.17 H Carbon Dioxide BUN 27 H Creatinine Glucose Lactate Dehydrogenase 460 H C-Reactive Protein 2.30 H Albumin 2.9 L Albumin/Globulin Ratio 0.8 L Meds: Medications Acetaminophen (Acetaminophen 325 Mg Tablet) 650 mg PO Q6HP PRN; Protocol PRN Reason: Per Pain Protocol/Fever > 101 Last Admin: 12/19/21 14:45 Dose: 650 mg Documented by: Albuterol/Ipratropium (Ipratropium/Albuterol 3 Ml Ampul.Neb) 3 ml NEB Q4HRT PRN PRN Reason: Wheezing Artificial Tears (Carboxymethylcellulose Sodium 1 Each Droper.Gel) 1 each OU TID BARRY Last Admin: 12/23/21 20:52 Dose: 1 each Documented by: Benzonatate (Benzonatate 100 Mg Capsule) 200 mg PO TIDP PRN PRN Reason: Cough Last Admin: 12/21/21 10:24 Dose: 200 mg Documented by: Chlorhexidine Gluconate (Chlorhexidine Gluconate 1 Ml Oral.Irene) 15 ml SSP BID [facility] Last Admin: 12/23/21 20:44 Dose: 15 ml Documented by: Cyanocobalamin (Cyanocobalamin (Vitamin B-12) 500 Mcg Tablet) 1,000 mcg PO DAILY [facility] Last Admin: 12/23/21 08:00 Dose: 1,000 mcg Documented by: Dexamethasone (Dexamethasone 10 Mg/Ml Vial) 6 mg IV DAILY [facility] Last Admin: 12/23/21 07:59 Dose: 6 mg Documented by: Dextrose (Dextrose 50% 50 Ml Vial) 0 ml IV UD PRN PRN Reason: Hypoglycemia Diagnostic Test (Pha) (Accu-Chek 1 Each Strip) 1 each FS ACHS [facility] Last Admin: 12/23/21 21:00 Dose: 1 each Documented by: Docusate Sodium (Docusate Sodium 100 Mg Capsule) 100 mg PO BID [facility] Last Admin: 12/23/21 20:49 Dose: 100 mg Documented by: Enoxaparin Sodium (Enoxaparin 40 Mg/0.4 Ml Syringe) 40 mg SQ BID [facility] Last Admin: 12/23/21 20:44 Dose: 40 mg Documented by: Furosemide (Furosemide 40 Mg/4 Ml Vial) 40 mg IV BIDD [facility] Last Admin: 12/23/21 17:25 Dose: 40 mg Documented by: Gabapentin (Gabapentin 300 Mg Capsule) 300 mg PO TIDP PRN PRN Reason: pain Last Admin: 12/22/21 08:16 Dose: 300 mg Documented by: Glucose (Dextrose 31 Gm Oral.Susp) 15 gm PO PRN PRN PRN Reason: Hypoglycemia Potassium Chloride 20 meq/ (Dextrose) 260 mls @ 130 mls/hr IV DAILYP PRN PRN Reason: POTASSIUM LEVEL 2.5-2.9. REMDESIVIR 100 mg/ Sodium (Chloride) 250 mls @ 500 mls/hr IV Q24H [facility] Stop: 12/24/21 11:29 Last Infusion: 12/23/21 11:09 Dose: Infused Documented by: Insulin Glargine (Insulin Glargine, Human 1 Unit/0.01 Ml) 50 unit SQ HS [facility] Insulin Human Lispro (Insulin Lispro 1 Unit/0.01 Ml Unit) 40 unit SQ TIDAC [facility] Last Admin: 12/23/21 17:26 Dose: 40 units Documented by: Insulin Human Lispro (Insulin Lispro 1 Unit/0.01 Ml Unit) 0 unit SQ ACHS [facility]; Protocol Last Admin: 12/23/21 21:00 Dose: Not Given Documented by: Lactulose (Lactulose 20 Gm/30 Ml Oral.Irene) 10 gm PO DAILYP PRN PRN Reason: Constipation Loperamide HCl (Loperamide 2 Mg Capsule) 2 mg PO PRN PRN PRN Reason: Diarrhea Lorazepam (Lorazepam 1 Mg Tablet) 1 mg PO Q6HP PRN PRN Reason: ANXIETY/SEDATION Last Admin: 12/23/21 21:12 Dose: 1 mg Documented by: Magnesium Oxide (Magnesium Oxide 400 Mg Tablet) 400 mg PO DAILY [facility] Last Admin: 12/23/21 08:00 Dose: 400 mg Documented by: Methocarbamol (Methocarbamol 750 Mg Tablet) 750 mg PO BIDP PRN PRN Reason: Spasms Last Admin: 12/17/21 09:38 Dose: 750 mg Documented by: Ondansetron HCl (Ondansetron 4 Mg/2 Ml Vial) 4 mg IV Q4HP PRN; Protocol PRN Reason: Nausea And Vomiting Pantoprazole Sodium (Pantoprazole 40 Mg Vial) [facility] Last Admin: 12/23/21 07:59 Dose: 40 mg Documented by: Potassium Chloride (Potassium Chloride 20 Meq Tablet) 20 meq PO DAILYP PRN PRN Reason: K LEVEL 3.0-3.4 Last Admin: 12/19/21 09:13 Dose: 20 meq Documented by: Senna (Sennosides 1 Tablet) 2 tab PO HSP PRN PRN Reason: Constipation Simvastatin (Simvastatin 40 Mg Tablet) 40 mg PO QHS [facility] Last Admin: 12/23/21 20:48 Dose: 40 mg Documented by: Sodium Chloride (0.9 % Sodium Chloride 10 Ml Syringe) 10 ml IV Q8 [facility] Last Admin: 12/24/21 04:00 Dose: 10 ml Documented by: Sodium Chloride (Sodium Chloride Nasal 1 [place] Bottle) 2 spray YANI Q4HP PRN PRN Reason: Congestion Last Admin: 12/18/21 09:55 Dose: 2 spray Documented by: Vitamin D (Vitamin D3 125 Mcg Tablet) 125 mcg PO DAILY [facility] Last Admin: 12/23/21 08:00 Dose: 125 mcg Documented by: A/P Narrative A/P Narrative: A/P Narrative: Assessment: 61-year-old male with a history of hypertension, dyslipidemia, type 2 diabetes mellitus, congestive heart failure, obesity admitted for acute hypoxic respiratory failure secondary to acute on severe Covid pneumonia complicated by acute on chronic congestive heart failure. #Acute hypoxic respiratory failure #Severe COVID pneumonia/ARDS #Possible community acquired pneumonia coinfection #Chronic diastolic heart failure #Type 2 diabetes mellitus c/b neuropathy, uncontrolled with hyperglycemia #Essential hypertension #Dyslipidemia #Obesity BMI 48 #Elevated risk for sleep apnea, suspect dang #Acute Kidney injuury Plan -Severe Covid treatments: Dexamethasone, remdesivir, baricitinib. to continue for now -Oxygen supplementation, wean down as tolerated, was on bipap last night, on 4L oxygen this AM, monitor -Completed empiric ceftriaxone. -Complete Lasix 40 mg IV BID x 3 , Given worsening oxygen needs , resume lasix 40mg bid, educated on need for incentive spirometer -Hold home lisinopril dose given worsening renal function, monitor creat closely -Monitor volume status closely -Lantus increased to 50 at bedtime, prandial NovoLog and SSI, Glucose levels have stabilized and trending down this AM -hold home dose of Lopressor in light of bradycardia - continue home simvastatin. -Holding home Metformin, semaglutide, hydrochlorothiazide, for now -Prone position as tolerated. -DVT prophylaxis: Lovenox SQ twice daily for BMI greater than 40. -CODE STATUS: Full -Disposition: probably home when stable depending on clinical progress, Will get OT/Pt to reassess as patient seems stable to tolerate therapy at this time. . Time Spent With Patient Time: Total time spent is greater than 50% in coordination of care (as documented) at patient's floor/unit and/or counseling patient: Total time spent with greater than 50% in coordination of care (as documented) at patient's floor/unit and/or counseling patient:: Greater than 35 minutes
[2021-12-24 07:13] LABS: Basophils # (Auto) 0.03 K/mcL (0.00-0.30); Basophils % (Auto) 0.3 % (0.0-2.0); Eosinophils # (Auto) 0.04 K/mcL (0.00-0.70); Eosinophils % (Auto) 0.4 % (0.0-7.0); Hematocrit 35.6 % (40.1-51.0); Hemoglobin 11.3 g/dL (13.7-17.5); Lymphocytes # (Auto) 2.33 K/mcL (1.50-4.80); Lymphocytes % (Auto) 22.2 % (15.5-49.0); Mean Cell Volume 96.2 fL (80.0-100.0); Mean Corpuscular HGB Conc 31.7 g/dL (31.0-36.0); Mean Platelet Volume 10.2 fL (7.4-10.4); Monocytes # (Auto) 0.82 K/mcL (0.10-0.90); Monocytes % (Auto) 7.8 % (1.0-12.0); Neutrophils % (Auto) 69.3 % (38.0-78.0); Platelet Count 405 K/mcL (140-440); Red Cell Distribution Width 14.1 % (11.5-14.5); WBC 10.5 K/mcL (4.5-11.0)
[2021-12-24 07:49] LABS: ALT/SGPT 32 U/L (<40); AST/SGOT 27 U/L (<40); Albumin 3.2 gm/dL (3.2-5.2); Alkaline Phosphatase 45 U/L (39-117); Bilirubin,Direct < 0.2 mg/dL (0-0.3); Bilirubin,Total 0.3 mg/dL (0.1-1.0); Blood Urea Nitrogen 29 mg/dL (8-23); Calcium 8.8 mg/dL (8.6-10.4); Carbon Dioxide 28 mmol/L (22-30); Chloride 99 mmol/L (96-108); Globulin 3.3 gm/dL (2.2-3.7); Glomerular Filtration Rate 72; Glucose 131 mg/dL (70-105); Lactate Dehydrogenase 562 U/L (135-225); Phosphorous 3.6 mg/dL (2.5-4.5); Triglycerides 54 mg/dL (<150)
[2021-12-24] MEDS: PANTOPRAZOLE 40 MG VIAL IV SCH (07:58)
[2021-12-24] MEDS: DEXAMETHASONE 10 MG/ML VIAL IV SCH (07:59)
[2021-12-24] MEDS: DOCUSATE SODIUM 100 MG CAPSULE PO SCH ×2 (07:59→20:36)
[2021-12-24] MEDS: ENOXAPARIN 40 MG/0.4 ML SYRINGE SQ SCH ×2 (07:59→20:31)
[2021-12-24] MEDS: FUROSEMIDE 40 MG/4 ML VIAL IV SCH ×2 (07:59→15:04)
[2021-12-24] MEDS: CHLORHEXIDINE GLUCONATE 1 ML ORAL.SOL SSP SCH ×2 (08:00→20:33)
[2021-12-24] MEDS: MAGNESIUM OXIDE 400 MG TABLET PO SCH (08:00)
[2021-12-24] MEDS: VITAMIN D3 125 MCG TABLET PO SCH (08:00)
[2021-12-24] MEDS: CYANOCOBALAMIN (VITAMIN B-12) 500 MCG TABLET PO SCH (08:00)
[2021-12-24] MEDS: CARBOXYMETHYLCELLULOSE SODIUM 1 EACH DROPER.GEL OU SCH ×3 (08:00→20:34)
[2021-12-24] MEDS: BARICITINIB 2 MG TABLET PO SCH (08:01)
[2021-12-24] MEDS: INSULIN LISPRO 1 UNIT/0.01 ML UNIT SQ SCH ×7 (08:33→20:37)
[2021-12-24] MEDS: REMDESIVIR 100 MG in 0.9 % SODIUM CHLORIDE 250 ML IV SCH (11:48)
--- NOTE | 2021-12-24 12:59 | Internal Med Progress Note ---
SUBJECTIVE Subjective Patient information: Note initiated : 12/24/21 at 12:53 pm Service Date, if different from initiated Date: [] Patient: Jose Young a 61 y/o M admitted on 12/15/21 for Weak. Chief Complaint: [] Principal diagnosis: CoVID pneumonia, CHF exacerbation Interval history: Mr. Young is a 61 year old M history of congestive heart failure, chronic kidney disease stage III, morbid obesity, essential hypertension, mixed dyslipidemia, type 2 diabetes mellitus, presenting with 3 weeks history of shortness of breath, cough, fever, chills, and bilateral leg swellings. He ran out of his diuretics Lasix 3 weeks ago. Since then, he had gradually worsening shortness of breath, cough, fever, chills, and bilateral leg swellings. He is also complained of dyspnea on exertions with 20 feet. He is also committing of orthopnea to the point that he has to sleep on the chair. He denies any wheezing. He denies any unintentional weight gain. Patient is vaccinated against COVID-pneumonia. Of note, his son was recently being diagnosed with COVID-pneumonia. Labs significant for lack of leukocytosis with WBC 7.3. POC potassium level 2.9. Serum creatinine level 1.4 which is at around his baseline. Serum glucose level 224. Serum troponin level 0.20 followed by 0.19. Serum BNP 1420. Eunice negative. [place] pending. Chest x-ray showing severe infiltrates throughout both lungs which could be due to pulmonary edema or severe widespread bilateral pneumonia such as COVID-pneumonia. 12/16: Afebrile overnight. [place] positive. Blood cultures no growth to date. Sputum culture mixed becky. On BiPAP 15/7 FiO2 75%. c/o shortness of breath, improving. c/o productive cough with brown and green sputum. c/o wheezing. c/o chest pain when cough. c/o sweating. Denies any fever or chills. c/o mild anxiety. On Lasix IV, Dexamethasone, and Remdesivir. Add Bariticinib. 12/17: Afebrile overnight. Patient has been lying on his side. Blood cultures no growth to date. Sputum culture mixed becky. Troponin 0.11-->0.09. On BiPAP 15/7 FiO2 60%. c/o shortness of breath, improving. c/o productive cough with brown and green sputum. c/o wheezing. c/o chest pain when cough. c/o sweating. Denies any fever or chills. c/o mild anxiety. On Lasix IV, Dexamethasone, and Remdesivir. Add Bariticinib. 12/18: Afebrile overnight. Was on BiPAP overnight, been switched to high flow oxygen earlier in the morning with 35L/min, FiO2 65%. Did not tolerate proning. Sputum culture grew H influenzae. c/o shortness of breath, improving. c/o productive cough with green sputum. Denies wheezing. c/o chest pain when cough. Denies fever, chills, or sweating. On Baricitinib, Remdesivir, and Dexamethasone. Switch Lasix from IV to PO, resume HCTZ-Lisinopril from home regimen. All Rocephin as coverage for bacterial pneumonia. 12/19: Afebrile overnight. Blood glucose 53 this morning, normalized after orange juice given. Was on BiPAP overnight, been switched to high flow oxygen earlier in the morning with 40L/min, FiO2 65%. Did not tolerate proning. Sputum culture grew H influenzae. c/o shortness of breath, improving. c/o productive cough with green sputum. Denies wheezing. c/o chest pain when cough. Denies fever, chills, or sweating. On Baricitinib, Remdesivir, and Dexamethasone. Continue PO Lasix and HCTZ-Lisinopril from home regimen. Continue Rocephin as coverage for bacterial pneumonia. 12/20: Afebrile overnight. Blood glucose 77 this morning. Was on BiPAP overnight, been switched to high flow oxygen earlier in the morning with 35L/min, FiO2 80%. Did not tolerate proning. Sputum culture grew H influenzae. Improving degree of shortness of breath. c/o productive cough with green sputum. Denies wheezing. c/ o chest pain when cough. Denies fever, chills, or sweating. On Baricitinib, Remdesivir, and Dexamethasone. Continue PO Lasix and HCTZ-Lisinopril from home regimen. Continue Rocephin as coverage for bacterial pneumonia. 12/21: Hypoglycemia this morning, decreased Lantus to 40 units HS. FiO2 55% at 35L/min today. Lasix 40 mg IV BID started for increasing lower extremity pedal edema, holding home lasix. Decreased doses of home lopressor and lisinopril, holding home hydrochlorothiazide. 12/22: Oxygen requirement down to 4 L/min after receiving a couple doses of IV lasix. Fasting morning glucose 121. 12/23 Patient seen examined, feels better, but noted oxyen requirements have gone up, breathing is stable, Notes still has cough, but the color of sputum has changed from yellowish/green to clear Overnight with tae, but improved HR in AM, 12/24 patient seen examined, by the bed side, no acute complaints or concerns Doing well, overnight became bradycardic again, was on bipap , HOld metoprolol for now, and monitor Glucose level improving by still high, increase lantus to 50 units qhs Pt reports ongoing improvment in breathing, Cough reported as minimal 12/25 Constitutional Vitals: Vital Signs Temp Pulse Resp BP Pulse Ox 96.6 F L 67 18 145/81 96 12/24/21 11:59 12/24/21 11:59 12/24/21 11:59 12/24/21 11:59 12/24/21 11:59 Period Temp Pulse Resp BP Sys/Beck Pulse Ox Last 24 Hr 96.3 F-97.9 F 44-82 9-24 116-153/42-81 90-98 Intake and Output 12/23/21 12/24/21 12/24/21 21:59 05:59 13:59 Intake Total 350 730 Output Total 9253 087 2346 Balance -925 -100 -410 Weight 167.512 kg Intake & Output: Intake & Output 12/23/21 12/24/21 12/24/21 21:59 05:59 13:59 Intake Total 350 730 Output Total 2377 360 5251 Balance -925 -100 -410 Weight 167.512 kg Intake: Nourishment/Supplement quantity 240 (ml) IV 250 Veklury 100 mg In Sodium 250 Chloride 0.9% 250 ml @ 500 mls/ hr IV Q24H [facility] Rx#:[id number] Oral 350 240 Output: Void Amount 1017 541 3104 Other: Meal Breakfast Feeding Ability Independent Nourishment/Supplement name Glucerna Urine Appearance Clear Clear Clear Urine Color Bright Yellow Bright Yellow Bright Yellow Urine Odor Normal Normal Stool Size Moderate Large Stool Color Brown Brown Stool Consistency Soft Soft Formed Formed # Bowel Movements 1 # of times incontinent of 0 Bowels Exam: General: Alert, Awake, No acute Distress Eyes/N/T: EOMI, Head/Neck: neck supple, CV: RRR, No murmurs, Pulm: Bibasilar rales, no wheezing Abd: soft, nontender, +BS x4 Ext: no clubbing/cyanosis/edema Neuro: Alert, no focal deficits, moves all extremities, Skin: warm/dry OBJ DATA Labs CBC & Chem 7: 12/24/21 03:52 12/24/21 03:52 Labs: Abnormal Lab Results 12/24/21 12/24/21 12/23/21 03:52 03:52 05:12 RBC 3.70 L Hgb 11.3 L Hct 35.6 L Carbon Dioxide BUN 29 H 29 H Creatinine 1.3 H Glucose 131 H 197 H Lactate Dehydrogenase 562 H 454 H Albumin 3.0 L Albumin/Globulin Ratio 0.9 L 12/22/21 12/22/21 04:25 04:25 RBC 3.59 L Hgb 10.8 L Hct 33.5 L Carbon Dioxide 32 H BUN 26 H Creatinine Glucose 119 H Lactate Dehydrogenase 445 H Albumin 3.0 L Albumin/Globulin Ratio 0.9 L Meds: Medications Acetaminophen (Acetaminophen 325 Mg Tablet) 650 mg PO Q6HP PRN; Protocol PRN Reason: Per Pain Protocol/Fever > 101 Last Admin: 12/19/21 14:45 Dose: 650 mg Documented by: Albuterol/Ipratropium (Ipratropium/Albuterol 3 Ml Ampul.Neb) 3 ml NEB Q4HRT PRN PRN Reason: Wheezing Artificial Tears (Carboxymethylcellulose Sodium 1 Each Droper.Gel) 1 each OU TID [facility] Last Admin: 12/24/21 08:00 Dose: 1 each Documented by: Benzonatate (Benzonatate 100 Mg Capsule) 200 mg PO TIDP PRN PRN Reason: Cough Last Admin: 12/21/21 10:24 Dose: 200 mg Documented by: Chlorhexidine Gluconate (Chlorhexidine Gluconate 1 Ml Oral.Irene) 15 ml SSP BID [facility] Last Admin: 12/24/21 08:00 Dose: 15 ml Documented by: Cyanocobalamin (Cyanocobalamin (Vitamin B-12) 500 Mcg Tablet) 1,000 mcg PO DAILY [facility] Last Admin: 12/24/21 08:00 Dose: 1,000 mcg Documented by: Dexamethasone (Dexamethasone 10 Mg/Ml Vial) 6 mg IV DAILY [facility] Last Admin: 12/24/21 07:59 Dose: 6 mg Documented by: Dextrose (Dextrose 50% 50 Ml Vial) 0 ml IV UD PRN PRN Reason: Hypoglycemia Diagnostic Test (Pha) (Accu-Chek 1 Each Strip) 1 each FS [facility] Last Admin: 12/24/21 12:05 Dose: 1 each Documented by: Docusate Sodium (Docusate Sodium 100 Mg Capsule) 100 mg PO BID [facility] Last Admin: 12/24/21 07:59 Dose: 100 mg Documented by: Enoxaparin Sodium (Enoxaparin 40 Mg/0.4 Ml Syringe) 40 mg SQ BID [facility] Last Admin: 12/24/21 07:59 Dose: 40 mg Documented by: Furosemide (Furosemide 40 Mg/4 Ml Vial) 40 mg IV BIDD [facility] Last Admin: 12/24/21 07:59 Dose: 40 mg Documented by: Gabapentin (Gabapentin 300 Mg Capsule) 300 mg PO TIDP PRN PRN Reason: pain Last Admin: 12/22/21 08:16 Dose: 300 mg Documented by: Glucose (Dextrose 31 Gm Oral.Susp) 15 gm PO PRN PRN PRN Reason: Hypoglycemia Potassium Chloride 20 meq/ (Dextrose) 260 mls @ 130 mls/hr IV DAILYP PRN PRN Reason: POTASSIUM LEVEL 2.5-2.9. Insulin Glargine (Insulin Glargine, Human 1 Unit/0.01 Ml) 50 unit SQ [facility] Insulin Human Lispro (Insulin Lispro 1 Unit/0.01 Ml Unit) 40 unit SQ TIDAC [facility] Last Admin: 12/24/21 12:06 Dose: 40 units Documented by: Insulin Human Lispro (Insulin Lispro 1 Unit/0.01 Ml Unit) 0 unit SQ [facility]; Protocol Last Admin: 12/24/21 12:06 Dose: 6 unit Documented by: Lactulose (Lactulose 20 Gm/30 Ml Oral.Irene) 10 gm PO DAILYP PRN PRN Reason: Constipation Loperamide HCl (Loperamide 2 Mg Capsule) 2 mg PO PRN PRN PRN Reason: Diarrhea Lorazepam (Lorazepam 1 Mg Tablet) 1 mg PO Q6HP PRN PRN Reason: ANXIETY/SEDATION Last Admin: 12/23/21 21:12 Dose: 1 mg Documented by: Magnesium Oxide (Magnesium Oxide 400 Mg Tablet) 400 mg PO DAILY [facility] Last Admin: 12/24/21 08:00 Dose: 400 mg Documented by: Methocarbamol (Methocarbamol 750 Mg Tablet) 750 mg PO BIDP PRN PRN Reason: Spasms Last Admin: 12/17/21 09:38 Dose: 750 mg Documented by: Ondansetron HCl (Ondansetron 4 Mg/2 Ml Vial) 4 mg IV Q4HP PRN; Protocol PRN Reason: Nausea And Vomiting Pantoprazole Sodium (Pantoprazole 40 Mg Vial) 40 mg IV QAMAC [facility] Last Admin: 12/24/21 07:58 Dose: 40 mg Documented by: Potassium Chloride (Potassium Chloride 20 Meq Tablet) 20 meq PO DAILYP PRN PRN Reason: K LEVEL 3.0-3.4 Last Admin: 12/19/21 09:13 Dose: 20 meq Documented by: Senna (Sennosides 1 Tablet) 2 tab PO HSP PRN PRN Reason: Constipation Simvastatin (Simvastatin 40 Mg Tablet) 40 mg PO QHS [facility] Last Admin: 12/23/21 20:48 Dose: 40 mg Documented by: Sodium Chloride (0.9 % Sodium Chloride 10 Ml Syringe) 10 ml IV Q8 [facility] Last Admin: 12/24/21 04:00 Dose: 10 ml Documented by: Sodium Chloride (Sodium Chloride Nasal 1 [place] Bottle) 2 spray YANI Q4HP PRN PRN Reason: Congestion Last Admin: 12/18/21 09:55 Dose: 2 spray Documented by: Vitamin D (Vitamin D3 125 Mcg Tablet) 125 mcg PO DAILY [facility] Last Admin: 12/24/21 08:00 Dose: 125 mcg Documented by: A/P Narrative A/P Narrative: A: #Severe COVID pneumonia/ARDS: #Acute hypoxic respiratory failure: -on #Possible community acquired pneumonia coinfection: #Chronic diastolic heart failure #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 -Complete Lasix 40 mg IV BID x 3 , Given worsening oxygen needs , resume lasix 40mg bid -IS/acapella -Hold home lisinopril dose given worsening renal function, monitor creat closely -Monitor volume status closely -Lantus increased to 50 at bedtime, SSI, Glucose levels have stabilized and trending down this AM -hold home dose of Lopressor in light of bradycardia -Holding home Metformin, semaglutide, hydrochlorothiazide, for now -Prone position as tolerated -ppx: Lovenox SQ twice daily for BMI greater than 40. CODE STATUS: Bowl Attendant Spent With Patient Time: Total time spent is greater than 50% in coordination of care (as documented) at patient's floor/unit and/or counseling patient:
[2021-12-24] MEDS: SIMVASTATIN 40 MG TABLET PO SCH (20:30)
[2021-12-24] MEDS: INSULIN GLARGINE, HUMAN 1 UNIT/0.01 ML SQ SCH (20:34)
[2021-12-24] MEDS: GABAPENTIN 300 MG CAPSULE PO PRN (20:36)
[2021-12-24] MEDS: LORazepam 1 MG TABLET PO PRN (20:36)
[2021-12-25] MEDS: 0.9 % SODIUM CHLORIDE 10 ML SYRINGE IV SCH ×3 (04:40→21:28)
--- NOTE | 2021-12-25 07:38 | Internal Med Progress Note ---
SUBJECTIVE Subjective Patient information: Note initiated : 12/25/21 at 7:34 am Service Date, if different from initiated Date: [] Patient: Jose Young a 61 y/o M admitted on 12/15/21 for Weak. Chief Complaint: [] Principal diagnosis: CoVID pneumonia, CHF exacerbation Interval history: Mr. Young is a 61 year old M history of congestive heart failure, chronic kidney disease stage III, morbid obesity, essential hypertension, mixed dyslipidemia, type 2 diabetes mellitus, presenting with 3 weeks history of shortness of breath, cough, fever, chills, and bilateral leg swellings. He ran out of his diuretics Lasix 3 weeks ago. Since then, he had gradually worsening shortness of breath, cough, fever, chills, and bilateral leg swellings. He is also complained of dyspnea on exertions with 20 feet. He is also committing of orthopnea to the point that he has to sleep on the chair. He denies any wheezing. He denies any unintentional weight gain. Patient is vaccinated against COVID-pneumonia. Of note, his son was recently being diagnosed with COVID-pneumonia. Labs significant for lack of leukocytosis with WBC 7.3. POC potassium level 2.9. Serum creatinine level 1.4 which is at around his baseline. Serum glucose level 224. Serum troponin level 0.20 followed by 0.19. Serum BNP 1420. Eunice negative. [place] pending. Chest x-ray showing severe infiltrates throughout both lungs which could be due to pulmonary edema or severe widespread bilateral pneumonia such as COVID-pneumonia. 12/16: Afebrile overnight. [place] positive. Blood cultures no growth to date. Sputum culture mixed becky. On BiPAP 15/7 FiO2 75%. c/o shortness of breath, improving. c/o productive cough with brown and green sputum. c/o wheezing. c/o chest pain when cough. c/o sweating. Denies any fever or chills. c/o mild anxiety. On Lasix IV, Dexamethasone, and Remdesivir. Add Bariticinib. 12/17: Afebrile overnight. Patient has been lying on his side. Blood cultures no growth to date. Sputum culture mixed becky. Troponin 0.11-->0.09. On BiPAP 15/7 FiO2 60%. c/o shortness of breath, improving. c/o productive cough with brown and green sputum. c/o wheezing. c/o chest pain when cough. c/o sweating. Denies any fever or chills. c/o mild anxiety. On Lasix IV, Dexamethasone, and Remdesivir. Add Bariticinib. 12/18: Afebrile overnight. Was on BiPAP overnight, been switched to high flow oxygen earlier in the morning with 35L/min, FiO2 65%. Did not tolerate proning. Sputum culture grew H influenzae. c/o shortness of breath, improving. c/o productive cough with green sputum. Denies wheezing. c/o chest pain when cough. Denies fever, chills, or sweating. On Baricitinib, Remdesivir, and Dexamethasone. Switch Lasix from IV to PO, resume HCTZ-Lisinopril from home regimen. All Rocephin as coverage for bacterial pneumonia. 12/19: Afebrile overnight. Blood glucose 53 this morning, normalized after orange juice given. Was on BiPAP overnight, been switched to high flow oxygen earlier in the morning with 40L/min, FiO2 65%. Did not tolerate proning. Sputum culture grew H influenzae. c/o shortness of breath, improving. c/o productive cough with green sputum. Denies wheezing. c/o chest pain when cough. Denies fever, chills, or sweating. On Baricitinib, Remdesivir, and Dexamethasone. Continue PO Lasix and HCTZ-Lisinopril from home regimen. Continue Rocephin as coverage for bacterial pneumonia. 12/20: Afebrile overnight. Blood glucose 77 this morning. Was on BiPAP overnight, been switched to high flow oxygen earlier in the morning with 35L/min, FiO2 80%. Did not tolerate proning. Sputum culture grew H influenzae. Improving degree of shortness of breath. c/o productive cough with green sputum. Denies wheezing. c/o chest pain when cough. Denies fever, chills, or sweating. On Baricitinib, Remdesivir, and Dexamethasone. Continue PO Lasix and HCTZ-Lisinopril from home regimen. Continue Rocephin as coverage for bacterial pneumonia. 12/21: Hypoglycemia this morning, decreased Lantus to 40 units HS. FiO2 55% at 35L/min today. Lasix 40 mg IV BID started for increasing lower extremity pedal edema, holding home lasix. Decreased doses of home lopressor and lisinopril, holding home hydrochlorothiazide. 12/22: Oxygen requirement down to 4 L/min after receiving a couple doses of IV lasix. Fasting morning glucose 121. 12/23 Patient seen examined, feels better, but noted oxyen requirements have gone up, breathing is stable, Notes still has cough, but the color of sputum has changed from yellowish/green to clear Overnight with tae, but improved HR in AM, 12/24 patient seen examined, by the bed side, no acute complaints or concerns Doing well, overnight became bradycardic again, was on bipap , HOld metoprolol for now, and monitor Glucose level improving by still high, increase lantus to 50 units qhs Pt reports ongoing improvment in breathing, Cough reported as minimal 12/25 Patient now on 4 L nasal cannula and was on this overnight. Slowly improving cough and shortness of breath. Review of Systems: denies headache/fever/chills/nausea/vomiting/chest or abdominal pain/diarrhea. Otherwise see above. Constitutional Vitals: Vital Signs Temp Pulse Resp BP Pulse Ox 97 F 53 L 16 135/58 96 12/25/21 04:00 12/25/21 04:00 12/25/21 04:00 12/25/21 04:00 12/25/21 04:00 Period Temp Pulse Resp BP Sys/Beck Pulse Ox Last 24 Hr 96.3 F-98.8 F 53-72 16-22 135-153/46-81 90-97 Intake and Output 12/24/21 12/25/21 12/25/21 21:59 05:59 13:59 Intake Total 600 500 Output Total 1175 450 Balance -575 -450 500 Weight 170.097 kg Intake & Output: Intake & Output 12/24/21 12/25/21 12/25/21 21:59 05:59 13:59 Intake Total 600 500 Output Total 1175 450 Balance -575 -450 500 Weight 170.097 kg Intake: Nourishment/Supplement quantity 240 (ml) Oral 360 500 Output: Void Amount 1175 450 Other: Meal Dinner Percent of Meal Consumed 100% Feeding Ability Assist with Tray Set Up Nourishment/Supplement name Glucerna Urine Appearance Clear Clear Urine Color Dark Yellow Bright Yellow Urine Odor Normal Normal Exam: General: Alert, Awake, No acute Distress, obese Eyes/N/T: EOMI, Head/Neck: neck supple, CV: RRR, No murmurs, Pulm: mild Bibasilar rales, no wheezing Abd: soft, nontender, +BS x4 Ext: no clubbing/cyanosis, mild b/l LE edema - improved Neuro: Alert, no focal deficits, moves all extremities, Skin: warm/dry OBJ DATA Labs CBC & Chem 7: 12/24/21 03:52 12/24/21 03:52 Labs: Abnormal Lab Results 12/24/21 12/24/21 12/23/21 03:52 03:52 05:12 RBC 3.70 L Hgb 11.3 L Hct 35.6 L Carbon Dioxide BUN 29 H 29 H Creatinine 1.3 H Glucose 131 H 197 H Lactate Dehydrogenase 562 H 454 H Albumin 3.0 L Albumin/Globulin Ratio 0.9 L 12/22/21 04:25 RBC Hgb Hct Carbon Dioxide 32 H BUN 26 H Creatinine Glucose 119 H Lactate Dehydrogenase 445 H Albumin 3.0 L Albumin/Globulin Ratio 0.9 L Meds: Medications Acetaminophen (Acetaminophen 325 Mg Tablet) 650 mg PO Q6HP PRN; Protocol PRN Reason: Per Pain Protocol/Fever > 101 Last Admin: 12/19/21 14:45 Dose: 650 mg Documented by: Albuterol/Ipratropium (Ipratropium/Albuterol 3 Ml Ampul.Neb) 3 ml NEB Q4HRT PRN PRN Reason: Wheezing Artificial Tears (Carboxymethylcellulose Sodium 1 Each Droper.Gel) 1 each OU TID [facility] Last Admin: 12/24/21 20:34 Dose: 1 each Documented by: Benzonatate (Benzonatate 100 Mg Capsule) 200 mg PO TIDP PRN PRN Reason: Cough Last Admin: 12/21/21 10:24 Dose: 200 mg Documented by: Chlorhexidine Gluconate (Chlorhexidine Gluconate 1 Ml Oral.Irene) 15 ml SSP BID [facility] Last Admin: 12/24/21 20:33 Dose: 15 ml Documented by: Cyanocobalamin (Cyanocobalamin (Vitamin B-12) 500 Mcg Tablet) 1,000 mcg PO D AILY [facility] Last Admin: 12/24/21 08:00 Dose: 1,000 mcg Documented by: Dexamethasone (Dexamethasone 10 Mg/Ml Vial) 6 mg IV DAILY [facility] Last Admin: 12/24/21 07:59 Dose: 6 mg Documented by: Dextrose (Dextrose 50% 50 Ml Vial) 0 ml IV UD PRN PRN Reason: Hypoglycemia Diagnostic Test (Pha) (Accu-Chek 1 Each Strip) 1 each FS [facility] Last Admin: 12/24/21 20:19 Dose: 1 each Documented by: Docusate Sodium (Docusate Sodium 100 Mg Capsule) 100 mg PO BID [facility] Last Admin: 12/24/21 20:36 Dose: 100 mg Documented by: Enoxaparin Sodium (Enoxaparin 40 Mg/0.4 Ml Syringe) 40 mg SQ BID [facility] Last Admin: 12/24/21 20:31 Dose: 40 mg Documented by: Furosemide (Furosemide 40 Mg/4 Ml Vial) 40 mg IV BIDD [facility] Last Admin: 12/24/21 15:04 Dose: 40 mg Documented by: Gabapentin (Gabapentin 300 Mg Capsule) 300 mg PO TIDP PRN PRN Reason: pain Last Admin: 12/24/21 20:36 Dose: 300 mg Documented by: Glucose (Dextrose 31 Gm Oral.Susp) 15 gm PO PRN PRN PRN Reason: Hypoglycemia Potassium Chloride 20 meq/ (Dextrose) 260 mls @ 130 mls/hr IV DAILYP PRN PRN Reason: POTASSIUM LEVEL 2.5-2.9. Insulin Glargine (Insulin Glargine, Human 1 Unit/0.01 Ml) 50 unit SQ [facility] Last Admin: 12/24/21 20:34 Dose: 50 unit Documented by: Insulin Human Lispro (Insulin Lispro 1 Unit/0.01 Ml Unit) 40 unit SQ TIDAC [facility] Last Admin: 12/24/21 17:09 Dose: 40 units Documented by: Insulin Human Lispro (Insulin Lispro 1 Unit/0.01 Ml Unit) 0 unit SQ [facility]; Protocol Last Admin: 12/24/21 20:37 Dose: 8 unit Documented by: Lactulose (Lactulose 20 Gm/30 Ml Oral.Irene) 10 gm PO DAILYP PRN PRN Reason: Constipation Loperamide HCl (Loperamide 2 Mg Capsule) 2 mg PO PRN PRN PRN Reason: Diarrhea Lorazepam (Lorazepam 1 Mg Tablet) 1 mg PO Q6HP PRN PRN Reason: ANXIETY/SEDATION Last Admin: 12/24/21 20:36 Dose: 1 mg Documented by: Magnesium Oxide (Magnesium Oxide 400 Mg Tablet) 400 mg PO DAILY [facility] Last Admin: 12/24/21 08:00 Dose: 400 mg Documented by: Methocarbamol (Methocarbamol 750 Mg Tablet) 750 mg PO BIDP PRN PRN Reason: Spasms Last Admin: 12/17/21 09:38 Dose: 750 mg Documented by: Ondansetron HCl (Ondansetron 4 Mg/2 Ml Vial) 4 mg IV Q4HP PRN; Protocol PRN Reason: Nausea And Vomiting Pantoprazole Sodium (Pantoprazole 40 Mg Vial) 40 mg IV QAMAC [facility] Last Admin: 12/24/21 07:58 Dose: 40 mg Documented by: Potassium Chloride (Potassium Chloride 20 Meq Tablet) 20 meq PO DAILYP PRN PRN Reason: K LEVEL 3.0-3.4 Last Admin: 12/19/21 09:13 Dose: 20 meq Documented by: Senna (Sennosides 1 Tablet) 2 tab PO HSP PRN PRN Reason: Constipation Simvastatin (Simvastatin 40 Mg Tablet) 40 mg PO QHS [facility] Last Admin: 12/24/21 20:30 Dose: 40 mg Documented by: Sodium Chloride (0.9 % Sodium Chloride 10 Ml Syringe) 10 ml IV Q8 [facility] Last Admin: 12/25/21 04:40 Dose: 10 ml Documented by: Sodium Chloride (Sodium Chloride Nasal 1 [place] Bottle) 2 spray YANI Q4HP PRN PRN Reason: Congestion Last Admin: 12/18/21 09:55 Dose: 2 spray Documented by: Vitamin D (Vitamin D3 125 Mcg Tablet) 125 mcg PO DAILY [facility] Last Admin: 12/24/21 08:00 Dose: 125 mcg Documented by: A/P Narrative A/P Narrative: A: #Severe COVID pneumonia/ARDS: #Acute hypoxic respiratory failure: -on 4L NC #Possible community acquired pneumonia coinfection: #Chronicdiastolic heart failure #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 #Essential hypertension/HLD: #Obesity" BMI 48 #Elevated risk for sleep apnea, suspect dang #SHENA on CKD II: Plan: -Dexamethasone, remdesivir, baricitinib -Oxygen supplementation, wean down as tolerated -Completed empiric ceftriaxone -Complete Lasix 40 mg IV BID x 3 , Given worsening oxygen needs , resume lasix 40mg bid -IS/acapella -Hold home lisinopril for renal fxn, hold home BB in light of bradycardia -Monitor volume status closely -Lantus increased to 50 at bedtime, SSI, Glucose levels have stabilized and trending down this AM -Holding home Metformin, semaglutide, hydrochlorothiazide, for now -Prone position as tolerated -ppx: Lovenox SQ twice daily for BMI greater than 40. CODE STATUS: Primary Montessori Teacher Spent With Patient Time: Total time spent is greater than 50% in coordination of care (as documented) at patient's floor/unit and/or counseling patient:
[2021-12-25] MEDS: INSULIN LISPRO 1 UNIT/0.01 ML UNIT SQ SCH ×7 (08:02→21:28)
[2021-12-25] MEDS: ENOXAPARIN 40 MG/0.4 ML SYRINGE SQ SCH ×2 (08:03→21:24)
[2021-12-25] MEDS: CYANOCOBALAMIN (VITAMIN B-12) 500 MCG TABLET PO SCH (08:04)
[2021-12-25] MEDS: VITAMIN D3 125 MCG TABLET PO SCH (08:04)
[2021-12-25] MEDS: MAGNESIUM OXIDE 400 MG TABLET PO SCH (08:04)
[2021-12-25] MEDS: DOCUSATE SODIUM 100 MG CAPSULE PO SCH ×2 (08:04→21:30)
[2021-12-25] MEDS: PANTOPRAZOLE 40 MG VIAL IV SCH (08:06)
[2021-12-25] MEDS: CARBOXYMETHYLCELLULOSE SODIUM 1 EACH DROPER.GEL OU SCH ×3 (08:06→21:24)
[2021-12-25] MEDS: DEXAMETHASONE 10 MG/ML VIAL IV SCH (08:07)
[2021-12-25] MEDS: FUROSEMIDE 40 MG/4 ML VIAL IV SCH ×2 (08:08→17:00)
[2021-12-25] MEDS: CHLORHEXIDINE GLUCONATE 1 ML ORAL.SOL SSP SCH ×2 (08:11→21:29)
[2021-12-25] MEDS: BARICITINIB 2 MG TABLET PO SCH (08:11)
--- NOTE | 2021-12-25 10:23 | Discharge Summary ---
Discharge Provider Provider Patient information: Note initiated : 12/25/21 at 10:21 am Service Date, if different from initiated Date: [] Patient: Jose Young 61 y/o M admitted on 12/15/21 for Weak. Chief Complaint: [] Date of admission: 12/15/21 16:35 Discharge date: 12/26/21 Primary care physician: PCP No Consults: 12/15/21 Consult to Physician [CONS] Stat Comment: Consulting Provider: Giancarlo Mcclure Reason For Exam: Physician to Consult Discharge Meds Discharge Medications Home Medications carboxymethylcellulose sodium 0.5 % eye drops 1 drp OPHTHALMIC TID PRN 05/19/19 [History Confirmed 12/15/21 Last Taken Unknown] cholecalciferol (vitamin D3) 125 mcg (5,000 unit) capsule 5,000 unit PO QDAY 05/19/19 [History Confirmed 12/15/21 Last Taken 12/14/21 06:00] furosemide 40 mg tablet 80 mg PO QAM tab 11/10/19 [History Confirmed 12/15/21 Last Taken Unknown] magnesium oxide 420 mg tablet 420 mg PO QDAY tab 11/10/19 [History Confirmed 12/15/21 Last Taken 12/14/21 06:00] acetaminophen 650 mg tablet,extended release 650 mg PO Q12H PRN 12/17/19 [History Confirmed 12/15/21 Last Taken Unknown] insulin aspart U-100 100 unit/mL subcutaneous solution 30 unit SUB-Q TID ml 12/17/19 [History Confirmed 12/15/21 Last Taken 12/14/21 18:00] insulin glargine 100 unit/mL subcutaneous solution 50 unit SUB-Q BID ml 12/17/19 [History Confirmed 12/15/21 Last Taken 12/14/21 06:00] cyanocobalamin (vitamin B-12) 1,000 mcg capsule 1,000 mcg PO QDAY 05/16/21 [History Confirmed 12/15/21 Last Taken Unknown] metoprolol tartrate 50 mg tablet 50 mg PO BID tab 05/16/21 [History Confirmed 12/15/21 Last Taken Unknown] gabapentin 300 mg capsule 600 mg PO TID cap 11/15/21 [History Confirmed 12/15/21 Last Taken 12/14/21 06:00] metformin 500 mg tablet 1,000 mg PO BID tab 11/15/21 [History Confirmed 12/15/21 Last Taken Unknown] semaglutide (weight loss) 1.7 mg/0.75 mL subcutaneous pen injector 1.7 mg SUBCUT QWEEK 11/15/21 [History Confirmed 12/15/21 Last Taken Unknown] diclofenac sodium 50 mg tablet,delayed release 50 mg PO TID PRN 12/15/21 [History Confirmed 12/15/21 Last Taken 12/14/21 06:00] lisinopril 20 mg-hydrochlorothiazide 12.5 mg tablet 1 tab PO QAM 12/15/21 [History Confirmed 12/15/21 Last Taken 12/14/21 06:00] metformin 500 mg tablet 500 mg PO QDAY 12/15/21 [History Confirmed 12/15/21 Last Taken Unknown] simvastatin 40 mg tablet 40 mg PO QHS 12/15/21 [History Confirmed 12/15/21 Last Taken 12/13/21 20:00] COURSE Hospital Course Hospital course: Interval history: Mr. Young is a 61 year old M history of congestive heart failure, chronic kidney disease stage III, morbid obesity, essential hypertension, mixed dyslipidemia, type 2 diabetes mellitus, presenting with 3 weeks history of shortness of breath, cough, fever, chills, and bilateral leg swellings. He ran out of his diuretics Lasix 3 weeks ago. Since then, he had gradually worsening shortness of breath, cough, fever, chills, and bilateral leg swellings. He is also complained of dyspnea on exertions with 20 feet. He is also committing of orthopnea to the point that he has to sleep on the chair. He denies any wheezing. He denies any unintentional weight gain. Patient is vaccinated against COVID-pneumonia. Of note, his son was recently being diagnosed with COVID-pneumonia. Labs significant for lack of leukocytosis with WBC 7.3. POC potassium level 2.9. Serum creatinine level 1.4 which is at around his baseline. Serum glucose level 224. Serum troponin level 0.20 followed by 0.19. Serum BNP 1420. Eunice negative. [place] pending. Chest x-ray showing severe infiltrates throughout both lungs which could be due to pulmonary edema or severe widespread bilateral pneumonia such as COVID-pneumonia. 12/16: Afebrile overnight. [place] positive. Blood cultures no growth to date. Sputum culture mixed becky. On BiPAP 15/7 FiO2 75%. c/o shortness of breath, improving. c/o productive cough with brown and green sputum. c/o wheezing. c/o chest pain when cough. c/o sweating. Denies any fever or chills. c/o mild anxiety. On Lasix IV, Dexamethasone, and Remdesivir. Add Bariticinib. 12/17: Afebrile overnight. Patient has been lying on his side. Blood cultures no growth to date. Sputum culture mixed becky. Troponin 0.11-->0.09. On BiPAP 15/7 FiO2 60%. c/o shortness of breath, improving. c/o productive cough with brown and gre en sputum. c/o wheezing. c/o chest pain when cough. c/o sweating. Denies any fever or chills. c/o mild anxiety. On Lasix IV, Dexamethasone, and Remdesivir. Add Bariticinib. 12/18: Afebrile overnight. Was on BiPAP overnight, been switched to high flow oxygen earlier in the morning with 35L/min, FiO2 65%. Did not tolerate proning. Sputum culture grew H influenzae. c/o shortness of breath, improving. c/o productive cough with green sputum. Denies wheezing. c/o chest pain when cough. Denies fever, chills, or sweating. On Baricitinib, Remdesivir, and Dexamethasone. Switch Lasix from IV to PO, resume HCTZ-Lisinopril from home regimen. All Rocephin as coverage for bacterial pneumonia. 12/19: Afebrile overnight. Blood glucose 53 this morning, normalized after orange juice given. Was on BiPAP overnight, been switched to high flow oxygen earlier in the morning with 40L/min, FiO2 65%. Did not tolerate proning. Sputum culture grew H influenzae. c/o shortness of breath, improving. c/o productive cough with green sputum. Denies wheezing. c/o chest pain when cough. Denies fever, chills, or sweating. On Baricitinib, Remdesivir, and Dexamethasone. Continue PO Lasix and HCTZ-Lisinopril from home regimen. Continue Rocephin as coverage for bacterial pneumonia. 12/20: Afebrile overnight. Blood glucose 77 this morning. Was on BiPAP overnight, been switched to high flow oxygen earlier in the morning with 35L/min, FiO2 80%. Did not tolerate proning. Sputum culture grew H influenzae. Improving degree of shortness of breath. c/o productive cough with green sputum. Denies wheezing. c/o chest pain when cough. Denies fever, chills, or sweating. On Baricitinib, Remdesivir, and Dexamethasone. Continue PO Lasix and HCTZ-Lisinopril from home regimen. Continue Rocephin as coverage for bacterial pneumonia. 12/21: Hypoglycemia this morning, decreased Lantus to 40 units HS. FiO2 55% at 35L/min today. Lasix 40 mg IV BID started for increasing lower extremity pedal edema, holding home lasix. Decreased doses of home lopressor and lisinopril, holding home hydrochlorothiazide. 12/22: Oxygen requirement down to 4 L/min after receiving a couple doses of IV lasix. Fasting morning glucose 121. 12/23 Patient seen examined, feels better, but noted oxyen requirements have gone up, breathing is stable, Notes still has cough, but the color of sputum has changed from yellowish/green to clear Overnight with tae, but improved HR in AM, 12/24 patient seen examined, by the bed side, no acute complaints or concerns Doing well, overnight became bradycardic again, was on bipap , HOld metoprolol for now, and monitor Glucose level improving by still high, increase lantus to 50 units qhs Pt reports ongoing improvment in breathing, Cough reported as minimal 12/25 Patient now on 4 L nasal cannula and was on this overnight. Slowly improving cough and shortness of breath. 12/26 Patient doing well. Stable for discharge. Home with home oxygen A: #Severe COVID pneumonia/ARDS: #Acute hypoxic respiratory failure: #Possible community acquired pneumonia coinfection: #Chronicdiastolic heart failure #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 #Essential hypertension/HLD: #Obesity" BMI 48 #Elevated risk for sleep apnea, suspect dang #SHENA on CKD II: Discharge diagnosis: Covid Pneumonia Acute Hypoxic Respiratory Failure CAP Secondary discharge diagnosis: History of CHF diabetes hypertension obesity sleep apnea acute on chronic kidney disease Time Spent with Patient Time attestation: Total time spent providing and/or coordinating discharge services: Time spent: Greater than 30 minutes EXAM Constitutional Vitals: Temp Pulse Resp BP Pulse Ox 96.5 F L 63 22 144/83 90 12/25/21 07:59 12/25/21 07:59 12/25/21 07:59 12/25/21 07:59 12/25/21 07:59 Discharge Plan Patient/Caregiver Discharge Instructions Activity: increase activity as tolerated Diet: Consistent Carbohydrate Activity Restrictions/Additional Instructions: Patient will require home oxygen for Covid pneumonia. Follow-up with PCP in 3 to 7 days. Prescriptions: Continued carboxymethylcellulose sodium 0.5 % drops 1 drp OPHTHALMIC TID PRN (Reason: Dry Eye(S)) 0RF cholecalciferol (vitamin D3) 5,000 unit capsule 5,000 unit PO QDAY 0RF magnesium oxide 420 mg tablet 420 mg PO QDAY 0RF insulin aspart U-100 100 unit/mL solution 30 unit SUB-Q TID 0RF insulin glargine 100 unit/mL solution 50 unit SUB-Q BID 0RF metoprolol tartrate 50 mg tablet 50 mg PO BID 0RF gabapentin 300 mg capsule 600 mg PO TID 0RF metformin 500 mg tablet 1,000 mg PO BID 0RF acetaminophen 650 mg tablet extended release 650 mg PO Q12H PRN (Reason: Pain) 0RF cyanocobalamin (vitamin B-12) 1,000 mcg capsule 1,000 mcg PO QDAY 0RF Label Comments: Has not been taking but should be taking semaglutide (weight loss) 1.7 mg/0.75 mL pen injector 1.7 mg subcut QWEEK 0RF Label Comments: Takes saturday or wednesdays Rx Instructions: administer weeks 13 through 16 of therapy furosemide 40 mg tablet 80 mg PO QAM 0RF metformin 500 mg Tablet 500 mg PO QDAY 0RF Rx Instructions: Take at noon lisinopril-hydrochlorothiazide 20-12.5 mg Tablet 1 tab PO QAM 0RF simvastatin 40 mg Tablet 40 mg PO QHS 0RF diclofenac sodium 50 mg Tablet,Delayed Release (Dr/Ec) 50 mg PO TID PRN (Reason: Pain) 0RF Follow Up Plan Patient Disposition: Home, Self-Care Prognosis: Fair Overall status at discharge: patient is progressing back to baseline Discharge Orders: Discharge Order (Routine); Ordered 12/26/21 Ordered By: Carlos Bobo
[2021-12-25] MEDS: SIMVASTATIN 40 MG TABLET PO SCH (21:25)
[2021-12-25] MEDS: GABAPENTIN 300 MG CAPSULE PO PRN (21:26)
[2021-12-25] MEDS: LORazepam 1 MG TABLET PO PRN (21:26)
[2021-12-25] MEDS: INSULIN GLARGINE, HUMAN 1 UNIT/0.01 ML SQ SCH (21:27)
[2021-12-26] MEDS: 0.9 % SODIUM CHLORIDE 10 ML SYRINGE IV SCH (07:19)
[2021-12-26] MEDS: INSULIN LISPRO 1 UNIT/0.01 ML UNIT SQ SCH ×4 (08:12→12:49)
[2021-12-26] MEDS: ENOXAPARIN 40 MG/0.4 ML SYRINGE SQ SCH (08:13)
[2021-12-26] MEDS: BARICITINIB 2 MG TABLET PO SCH (08:14)
[2021-12-26] MEDS: MAGNESIUM OXIDE 400 MG TABLET PO SCH (08:15)
[2021-12-26] MEDS: VITAMIN D3 125 MCG TABLET PO SCH (08:15)
[2021-12-26] MEDS: CYANOCOBALAMIN (VITAMIN B-12) 500 MCG TABLET PO SCH (08:15)
[2021-12-26] MEDS: DOCUSATE SODIUM 100 MG CAPSULE PO SCH (08:15)
[2021-12-26] MEDS: PANTOPRAZOLE 40 MG VIAL IV SCH (08:16)
[2021-12-26] MEDS: DEXAMETHASONE 10 MG/ML VIAL IV SCH (08:16)
[2021-12-26] MEDS: CARBOXYMETHYLCELLULOSE SODIUM 1 EACH DROPER.GEL OU SCH (08:16)
[2021-12-26] MEDS: CHLORHEXIDINE GLUCONATE 1 ML ORAL.SOL SSP SCH (08:18)
== END 2021-12-26 12:50 | disposition home health service (06) | DRG 177 ==
LOC: ED 10:00 → ICU 16:35 → MEDSUR 12-24 20:00
PROVIDERS: ADMIT Internal Medicine; ATTEND Internal Medicine